=== PATIENT | male | born 1965 | race Caucasian/White ===

== ENCOUNTER 2020-01-17 11:34 | Outpatient (CLI) | payer BC, SELFPAY ==
--- NOTE | ~2020-01-17 | XR_ITS ---
EXAMINATION: XR shoulder RT min 2V DATE: 01/17/2020 11:57 INDICATION: Bilateral shoulder pain TECHNIQUE: AP internally and externally rotated, AP oblique externally rotated and axillary views of the right shoulder were obtained. COMPARISON: None FINDINGS: Normal alignment. No fracture. Glenohumeral joint is normal. Mild acromioclavicular osteoarthritis. Soft tissues are unremarkable. Visualized portions of the right lung are clear. IMPRESSION: Mild right acromioclavicular osteoarthritis. Reviewed, dictated and finalized at location A.
--- NOTE | ~2020-01-17 | XR_ITS ---
EXAMINATION: XR shoulder LT min 2V DATE: 01/17/2020 11:56 INDICATION: Bilateral shoulder pain TECHNIQUE: AP internally and externally rotated, AP oblique externally rotated and axillary views of the left shoulder were obtained. COMPARISON: 03/28/2012 FINDINGS: Normal alignment. No fracture. Glenohumeral joint is normal. Mild acromioclavicular osteoarthritis. T here is new thickening of the acromion consistent with interval acromioplasty. New small lucent lesio n with thin sclerotic margins along the greater tuberosity which could be related to either chronic r otator cuff disease or potentially anchor sites for prior rotator cuff repair. Visual is portions of the left lung are clear. IMPRESSION: 1. Mild acromioclavicular osteoarthritis. No acute osseous abnormality. 2. Postoperative change of interval acromioplasty and possible rotator cuff repair. Reviewed, dictated and finalized at location A. IMPRESSION: 1. Mild acromioclavicular osteoarthritis. No acute osseous abnormality. 2. Postoperative change of interval acromioplasty and possible rotator cuff rep air.
== END 2020-01-17 11:35 | disposition home or self-care (01) ==
LOC: ANHIMG 11:40
PROVIDERS: PCP Family Medicine; Visit Provider Nurse Practitioner Family
DX: M25.512 Pain in left shoulder (principal); M25.511 Pain in right shoulder; M19.012 Primary osteoarthritis, left shoulder; M19.011 Primary osteoarthritis, right shoulder; Z98.890 Other specified postprocedural states
CPT/HCPCS: 73030

== ENCOUNTER 2020-07-09 15:46 | Outpatient (CLI) | payer BC, SELFPAY ==
--- NOTE | ~2020-07-09 | MR_ITS ---
EXAMINATION: MR brain/brain stem wo con DATE: 07/09/2020 16:52 INDICATION: Dizziness and giddiness. TECHNIQUE: Magnetic resonance imaging (MRI) of the brain and brainstem was performed without intraven ous contrast. Sequences included sagittal and axial T1-weighted FSE, axial diffusion-weighted FS EPI, axial T2*-weighted GRE, axial T2-weighted FLAIR Propeller, and axial T2-weighted Propeller. Apparent diffusion coefficient (ADC) maps were created. COMPARISON: None. FINDINGS: There is no intracranial hemorrhage, acute infarction, or abnormal intracranial mass lesion . The ventricles are normal in size. The paranasal sinuses are clear. The orbits are normal. The mast oid air cells are normal. IMPRESSION: 1. Normal brain. Reviewed, dictated and finalized at location A. EPT ARTIST IMPRESSION: 1. Normal brain.
== END 2020-07-09 15:47 | disposition home or self-care (01) ==
PROVIDERS: PCP Family Medicine; Visit Provider Family Medicine
DX: R42 Dizziness and giddiness (principal)
CPT/HCPCS: 70551

== ENCOUNTER 2020-07-21 09:36 | Outpatient (NON) | payer BC, SELFPAY ==
[2020-07-21 23:47] LABS: SARS-CoV-2 RNA PCR Positive
== END 2020-07-21 09:37 ==
LOC: ANHCOVIDDT 09:39
PROVIDERS: PCP Family Medicine; Visit Provider Family Medicine
DX: U07.1 COVID-19 (principal)
CPT/HCPCS: 87635; C9803; U0003

== ENCOUNTER → 2020-12-06 16:01 | Outpatient (CLI) | payer BC, SELFPAY ==
--- NOTE | ~2020-12-06 | XR_ITS ---
EXAMINATION: XR lumbar spine 6V w bending DATE: 12/06/2020 16:31 INDICATION: Low back pain TECHNIQUE: Anteroposterior, lateral in neutral, flexion and extension, and bilateral oblique views of the lumbar spine, and cone-down lateral view of the lumbosacral junction were obtained. COMPARISON: 07/12/2015 FINDINGS: Bone alignment is normal. No laxity is present with flexion or extension. There is no fract ure. The vertebral body heights are maintained. There is mild loss of intervertebral disc space heigh t at L4-5 and L5-S1. The bowel gas pattern is normal. IMPRESSION: 1. Mild lumbar spondylosis without acute findings or significant interval change. Reviewed, dictated and finalized at location A. IMPRESSION: 1. Mild lumbar spondylosis without acute findings or significant interval chery foster
--- NOTE | ~2020-12-06 | XR_ITS ---
EXAMINATION: XR sacrum coccyx min 2V INDICATION: Low back pain TECHNIQUE: Three views of the sacrum and coccyx are obtained. COMPARISON: 04/11/2018, 06/10/2011 FINDINGS: There is chronic posterior subluxation of the distal coccyx which is stable since the 2017 comparison but worst since the 2010 comparison. No acute fracture is identified. The soft tissues are unremarkable. IMPRESSION: 1. 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 Reviewed, dictated and finalized at location A.
== END ==
PROVIDERS: PCP Family Medicine; Visit Provider Family Medicine
DX: M43.5X8 Other recurrent vertebral dislocation, sacral and sacrococcygeal region (principal); M47.817 Spondylosis without myelopathy or radiculopathy, lumbosacral region
CPT/HCPCS: 72114; 72220

== ENCOUNTER 2021-01-23 09:01 | Outpatient (CLI) | payer BC, SELFPAY ==
--- NOTE | ~2021-01-23 | MR_ITS ---
EXAMINATION: MR lumbar spine wo con DATE: 01/23/2021 09:42 INDICATION: Low back pain. TECHNIQUE: Magnetic resonance imaging (MRI) of the lumbar spine was performed without intravenous con trast. Sequences included sagittal T2-weighted FSE, sagittal T2-weighted FS FSE, sagittal T1-weighted FSE, and axial T2-weighted FSE. COMPARISON: Lumbar spine radiographs 12/06/2020 FINDINGS: There is 3 degrees levocurvature of lumbar spine. Vertebral body heights are normal. There is mildly decreased disc height at L4-L5 and L5-S1. The distal spinal cord signal intensity is normal . The conus medullaris is at L1. The following disc levels are specifically discussed: L1-L2: The disc does not extend beyond the endplate margin. There is mild bilateral facet joint osteo arthritis. There is no neural foraminal stenosis. There is no central canal stenosis. L2-L3: The disc does not extend beyond the endplate margin. There is no facet joint osteoarthritis. T here is no neural foraminal stenosis. There is no central canal stenosis. L3-L4: The disc is mildly bulging. There is mild bilateral facet joint osteoarthritis. There is mild bilateral neural foraminal stenosis. There is no central canal stenosis. L4-L5: The disc is bulging and has an annular fissure. There is no facet joint osteoarthritis. There is moderate bilateral neural foraminal stenosis. There is mild central canal stenosis. L5-S1: The disc is bulging and has an annular fissure. There is mild bilateral facet joint osteoarthr itis. There is mild bilateral neural foraminal stenosis. There is mild central canal stenosis. IMPRESSION: 1. Moderate bilateral neural foraminal stenosis at L4-L5. Otherwise mild lumbar spondylosis. Reviewed, dictated and finalized at location B.
== END 2021-01-23 09:02 | disposition home or self-care (01) ==
PROVIDERS: PCP Family Medicine; Visit Provider Nurse Practitioner Family
DX: M47.817 Spondylosis without myelopathy or radiculopathy, lumbosacral region (principal); M48.07 Spinal stenosis, lumbosacral region
CPT/HCPCS: 72148

== ENCOUNTER 2021-02-01 13:25 | Emergency (ER) | payer BC, SELFPAY ==
[2021-02-01 13:33] VITALS: BP 143/91; PULSE 97; RESP 18; TEMP 35.8; O2SAT 97
--- NOTE | 2021-02-01 14:28 | ED.GENADULT ---
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 Patient denies loss of consciousness syncope or anticoagulant use and is otherwise in the room in no distress upon arrival and presents with normal gait patient noted he had had some mild neck pain which has resolved Related Data Home Medications Medication Instructions Recorded Confirmed insulin lispro 200 unit/mL (3 mL) 30 unit SUB-Q QACBREAK 09/01/19 11/23/20 subcutaneous pen Allergies Allergy/AdvReac Type Severity Reaction Status Date / Time No Known Allergies Allergy Unknown Verified 02/01/21 13:36 Review of Systems Review of Systems: All systems reviewed & are unremarkable except as noted in HPI and below PMFSH Past Medical History Medical History Abnormal MRI, lumbar spine BMI 40.0-44.9, adult Diabetes Foot pain, bilateral Obesity Umbilical hernia Vertigo Family History Family History Grandparent Malignant neoplasm of prostate Social History Social History Smoking status: Never smoker Alcohol intake: never Exam Narrative: Exam Narrative: GENERAL: Well-appearing, well-nourished, and in no acute distress. HEAD: Normocephalic, atraumatic. EYES: PERRLA and EOMI. ENT: Nares clear, no rhinorrhea or epistaxis. Mucous membranes moist. NECK: Supple. No adenopathy or masses. CHEST: Clear to auscultation. No respiratory distress. No wheezes rales or rhonchi HEART: Regular rate and rhythm. No murmur heard. Normal peripheral pulses. EXTREMITIES: Normal range of motion. No edema. SKIN: Warm, dry, no rash. NEURO: No focal deficits. Alert and oriented x3. Cranial nerves II through XII grossly intact. Normal speech and gait PSYCH: Normal mood and affect. Course Course Emergency Course: Patient in the room in no distress aware of case findings treatment plan and diagnosis agreeing to follow-up as instructed with primary care felt appropriate for outpatient reevaluation symptoms consistent with concussion patient is otherwise in no distress felt appropriate for outpatient reevaluation will be discharged home provided with reasons to return Vital Signs Vital signs: Vital Signs Temperature 96.4 F L 02/01/21 13:33 Pulse Rate 97 02/01/21 13:33 Respiratory Rate 18 02/01/21 13:33 Blood Pressure 143/91 H 02/01/21 13:33 Pulse Oximetry 97 02/01/21 13:33 Temperature 96.4 F L 02/01/21 13:33 Pulse Rate 97 02/01/21 13:33 Respiratory Rate 18 02/01/21 13:33 Blood Pressure 143/91 H 02/01/21 13:33 Pulse Oximetry 97 02/01/21 13:33 Medical Decision Making MDM Narrative Medical decision making narrative: Patient symptoms are most consistent with concussion no other concerning findings or complaints at this time he feels comfortable to follow-up on an outpatient basis Vital Signs Vital Signs: Vital Signs Temperature 96.4 F L 02/01/21 13:33 Pulse Rate 97 02/01/21 13:33 Respiratory Rate 18 02/01/21 13:33 Blood Pressure 143/91 H 02/01/21 13:33 Pulse Oximetry 97 02/01/21 13:33 Temperature 96.4 F L 02/01/21 13:33 Pulse Rate 97 02/01/21 13:33 Respiratory Rate 18 02/01/21 13:33 Blood Pressure 143/91 H 02/01/21 13:33 Pulse Oximetry 97 02/01/21 13:33 Discharge Plan Discharge Clinic
[2021-02-01 14:35] VITALS: BP 138/72; PULSE 70; RESP 18; O2SAT 99
== END 2021-02-01 14:37 | disposition home or self-care (01) ==
PROVIDERS: Emergency Provider Family Medicine; PCP Family Medicine
DX: S09.90XA Unspecified injury of head, initial encounter (principal); W21.03XA Struck by baseball, initial encounter; E11.9 Type 2 diabetes mellitus without complications; Z79.4 Long term (current) use of insulin
CPT/HCPCS: 99282

== ENCOUNTER → 2021-09-22 10:41 | Outpatient (CLI) | payer BC, SELFPAY ==
[2021-09-22 21:12] LABS: SARS-CoV-2 RNA PCR Positive
== END ==
PROVIDERS: PCP Family Medicine; Visit Provider Nurse Practitioner Family
DX: U07.1 COVID-19 (principal)
CPT/HCPCS: C9803; U0003; U0005

== ENCOUNTER 2022-06-02 12:38 | Outpatient (CLI) | payer BC, SELFPAY ==
--- NOTE | 2022-06-02 12:55 | ECG_ITS ---
Measurements Intervals [place] Rate: 87 P: 62 WI: 149 QRS: 29 QRSD: 85 T: 15 QT: 328 QTc: 395 Interpretive Statements SINUS RHYTHM BASELINE WANDER- I, II NORMAL ECG NO PREVIOUS ECG AVAILABLE FOR COMPARISON Electronically Signed On 06-02-2022 13:34:47 CDT by Zack Mishra D.O.
== END 2022-06-02 12:39 | disposition home or self-care (01) ==
LOC: ANHCARD 12:41
PROVIDERS: PCP Family Medicine; Visit Provider Family Medicine
DX: R60.0 Localized edema (principal); R00.0 Tachycardia, unspecified
CPT/HCPCS: 93005

== ENCOUNTER 2022-06-19 09:40 | Outpatient (CLI) | payer BC, SELFPAY ==
--- NOTE | 2022-06-19 10:16 | EST_ITS ---
Patient Info Name: Modesto Zheng Age: 57 years : 1965 Gender: Male Ht: 70 in Wt: 290 lbs BSA: 2.61 m2 HR: 85 bpm BP: 135 / 74 mmHg Heart Rhythm: Sinus Rhythm Exam Date: 06/19/2022 10:53 AM Exam Location: [facility] Stress Patient Status: Outpatient Admit Date: 06/19/2022 Staff Ordering Physician: Sarath Edgar MD Attending Provider: Sarath Edgar MD Exercise Technologist: Torrie Crowley CT Exercise Physician: Zack Mishra DO Exam Type: CA stress test treadmill Study Info Indications R00.0 - Tachycardia, unspecified R60.0 - Localized edema A treadmill exercise stress test was performed. Summary 1. 1. Negative Bryan exercise stress test for ischemic ST changes by ECG criteria. 2. 2. Reduced functional capacity, achieving 8 METs of workload. 3. 3. Hypertensive response to exercise. 4. 4. Appropriate HR response to exercise. 5. 5. Appropriate HR recovery at 1 minute post exercise. 6. 6. No imaging with stress testing. 7. 7. Patient informed of the above results. Protocol: Bryan Rest HR: 85 bpm Peak HR: 153 bpm Rest Sys BP: 135 mmHg Peak Sys BP: 220 mmHg Max Pred HR: 165 bpm % Max Pred HR: 93 % Target HR: 140 bpm Max RPP: 33,660 bpm*mmHg BP Response: Patient exhibited a hypertensive response with stress Termination Reason: Reached target heart rate or workload Cardiac Symptoms: Shortness of breath Total Time: 7 min : 0 sec Rest [place] BP: 74 mmHg Peak [place] BP: 66 mmHg Total METS: 8.3 Resting ECG Sinus rhythm. Stress ECG No ST changes. Arrhythmias None. Report Signatures
== END 2022-06-19 09:41 | disposition home or self-care (01) ==
LOC: ANHCARD 09:43
PROVIDERS: PCP Family Medicine; Visit Provider Family Medicine
DX: R60.0 Localized edema (principal); R00.0 Tachycardia, unspecified
CPT/HCPCS: 93017

== ENCOUNTER 2022-07-06 10:53 | Outpatient (CLI) | payer BC, SELFPAY ==
--- NOTE | ~2022-07-06 | CT_ITS ---
EXAMINATION: CTA chest PE protocol DATE: 07/06/2022 11:30 INDICATION: Shortness of breath, chest tightness, lower extremity edema TECHNIQUE: Computed tomography angiography (CTA) of the chest was performed with 100 mL Omnipaque-350 intravenous contrast timed to evaluate the pulmonary arteries. Coronal maximum intensity projection 3D-reconstructions were created by the technologist. Automated exposure control and iterative reconst ruction technique were employed. Exam dose: 1011.39 mGy-cm total exam DLP. COMPARISON: 05/23/2018 two-view chest 04/11/2018 CT chest abdomen pelvis FINDINGS: There is diagnostic contrast enhancement of the pulmonary arteries and no evidence of pulmo nary embolism. No thoracic aortic aneurysm or dissection. There is coronary artery calcification. Heart size is borderline. No pericardial or pleural effusion. No hilar or mediastinal mass lesion or lymphadenopathy. Patchy groundglass density of the lungs is is likely due to atelectasis or small airways disease. No pulmonary consolidation or mass lesion is evident. Included skeletal structures are unremarkable. Normal morphology of the adrenal glands. IMPRESSION: No evidence of pulmonary embolism Reviewed, dictated and finalized at Location A. Reviewed, dictated and finalized at location A.
[2022-07-06 11:25] LABS: Estimated Glomerular Filt Rate > 60
== END 2022-07-06 10:54 | disposition home or self-care (01) ==
PROVIDERS: PCP Family Medicine; Visit Provider Family Medicine
DX: R06.00 Dyspnea, unspecified (principal); M79.89 Other specified soft tissue disorders
CPT/HCPCS: 71275; Q9967

== ENCOUNTER 2024-10-16 16:59 | Emergency (ER) | payer BC, SELFPAY ==
--- NOTE | ~2024-10-16 | CT_ITS ---
EXAMINATION: CTA chest DATE: 10/16/2024 19:00 REGULATORY LAW SPECIALIST INDICATION: Upper back pain and chest pain with elevated blood pressure TECHNIQUE: Computed tomographic angiography (CTA) of the chest was performed with 100 mL Omnipaque-35 0 intravenous contrast. The dose-length product was 1124.37 mGy-cm. Maximum intensity projection 3D-r econstructions of the aorta and other arteries were constructed by the technologist on a separate wor kstation. COMPARISON: 07/06/2022 FINDINGS/OBSERVATIONS: PULMONARY ARTERIES: No filling defect is identified within the main or proximal pulmonary artery. The main pulmonary artery is not enlarged. THORACIC AORTA: No aneurysmal dilatation or dissection is present. The great vessels are intact LUNGS: The lungs are clear. MEDIASTINUM: No morphologically suspicious or pathologically enlarged lymph nodes are identified with in the mediastinum or bilateral axilla. BONES OF THE CHEST: No acute fracture. No significant degenerative disease. No lytic or blastic lesions. HEART: The heart is of normal size, without pericardial effusion. IMPRESSION: No pulmonary embolus. No thoracic aortic dissection. The lungs are clear. Reviewed, dictated and finalized at location A. LATORY LAW SPECIALIST
[2024-10-16 17:01] VITALS: BP 170/87; PULSE 97; RESP 16; TEMP 36.3; O2SAT 98
--- NOTE | 2024-10-16 17:01 | ECG_ITS ---
Test Date: 2024-10-16 17:04:29 Measurements Intervals [place] Rate: 98 P: 57 OR: 141 QRS: 29 QRSD: 88 T: 42 QT: 335 QTc: 428 Interpretive Statements SINUS RHYTHM CONSIDER RIGHT VENTRICULAR CONDUCTION DELAY LOW QRS VOLTAGE IN PRECORDIAL LEADS BORDERLINE ECG No previous ECG available for comparison Electronically Signed On 10-16-2024 19:04:05 SURVEY ANALYST by Zack Mishra D.O.
--- OUTSIDE RECORDS SUMMARY | 2024-10-16 17:02 | XMS_ITS | Encounter Summary ---
Author Organization [facility] Address [address] [place] [address] Care Team Providers Care Tip Mender Name Role Phone Sarath Edgar MD Primary Care Provider [phone] Jorge Olivia DO Unavailable Luana Mendez MD Unavailable [phone] Eun Duarte MD Unavailable [phone] Randa Davis DPSlime Unavailable [phone] Encounter Details Date Type Department Care Team (Late st Contact Info) Description 03/17/2012 [facility] Outpatient Visit EXTERNAL NON-[facility] [place] Lu[place] Mendez [place] [id number] [place] [address] [address] [place] [address] Social History Tobacco Use Types Packs/Day Years Used Date Smoking Tobacco: Never Assessed Sex and Gender Information Value Date Recorded Sex Assigned at Male 12/05/2020 2:14 PM CDT Gender Identity Male 12/05/2020 2:14 PM CDT Sexual Orientation Straight 12/05/2020 2: 14 PM CDT documented as of this encounter Plan of Treatment Upcoming Encounters Date Type Department Care Team (Late st Contact Info) Description 12/15/2024 3:00 PM CDT Office Visit [facility] Medical [facility] - Endocrinology [id number] [place] [address], [address] [place] [phone] Lu[place] Mendez [place] [id number] [place] [address] [address] [place] [address] 03/16/2025 3:00 PM CDT Office Visit [facility] - Endocrinology [address] [facility], [address] [place] [address] [place] [address] [facility] [address] [place] [address] documented as of this encounter Visit Diagnoses Not on filedocumented in this encounter Care Teams Tip Mender Relationship Specialty Start Date End Date Sarath Edgar MD [address] [place] [address] PCP - General 03/18/12 Jorge Olivia DO [address] [place] [address] Orthopedic Surgery 12/03/12 06/20/16 [place] [address] [facility] [address] [place] [address] Endocrinology 04/05/15 [place] [address] [facility] [address] [place] [phone] Ophthalmology 06/21/16 Randa Davis DPM [address] [facility] [address] SOLIS [address] [place] [address] Podiatry 06/21/16 documented as of this encounter
--- OUTSIDE RECORDS SUMMARY | 2024-10-16 17:02 | XMS_ITS | Encounter Summary ---
Author Organization [facility] Address [address] [facility] [place] [address] Care Team Providers Care Clinical Psychology Teacher Name Role Phone Sarath Edgar MD Primary Care Provider [phone] Jorge Olivia DO Unavailable [phone] Luana Mendez MD Unavailable [phone] Eun Duarte MD Unavailable [phone] Randa Davis DPSlime Unavailable [phone] Encounter Details Date Type Department Care Team (Late st Contact Info) Description 07/22/2013 [facility] Outpatient Visit [facility] - Endocrinology [address] [address] [place] [address] [address] Social History Tobacco Use Types Packs/Day Years Used Date Smoking Tobacco: Former Cigarettes Q uit: 02/24/2012 Alcohol Use Standard Drinks/Week Comments No 0 (1 standard drink = 0.6 oz pur e alcohol) Sex and Gender Information Value Date Recorded Sex Assigned at Male 12/05/2020 2:14 PM CDT Gender Identity Male 12/05/2020 2:14 PM CDT Sexual Orientation Straight 12/05/2020 2: 14 PM CDT documented as of this encounter Plan of Treatment Upcoming Encounters Date Type Department Care Team (Late st Contact Info) Description 12/15/2024 3:00 PM CDT Office Visit [facility] - Endocrinology [address] [place] [phone] Luana Mendez MD [address] [place] [address] 03/16/2025 3:00 PM CDT Office Visit [facility] - Endocrinology [address] [place] [phone] Luana Mendez MD [address] [place] [address] documented as of this encounter Visit Diagnoses Not on filedocumented in this encounter Care Teams Clinical Psychology Teacher Relationship Specialty Start Date End Date Sarath Edgar MD [address] [place] [address] PCP - General 03/18/12 Jorge Olivia DO [address] [place] [address] Orthopedic Surgery 12/03/12 06/20/16 Luana Mendez [place] [id number] [place] [address] Endocrinology 04/05/15 [place] [address] [facility] [address] [place] [phone] Ophthalmology 06/21/16 Randa Davis DPM [id number] [place] [address] DR SOLIS [address] [place] [address] Podiatry 06/21/16 documented as of this encounter
--- OUTSIDE RECORDS SUMMARY | 2024-10-16 17:02 | XMS_ITS | Encounter Summary ---
Author Organization [facility] Address [address] [facility] [place] [address] Care Team Providers Care Airplane Electrical Repairer Name Role Phone Sarath Edgar MD Primary Care Provider [phone] Jorge Olivia DO Unavailable [phone] Luana Mendez MD Unavailable [phone] Eun Duarte MD Unavailable [phone] Randa Davis DPSlime Unavailable [phone] Encounter Details Date Type Department Care Team (Late st Contact Info) Description 07/18/2013 [facility] Outpatient Visit [facility] - Endocrinology [address] [address] [place] [address] [address] Social History Tobacco Use Types [...] Description 12/15/2024 3:00 PM CDT Office Visit [facility] - Endocrinology [address] [place] [phone] Luana Mendez MD [address] [place] [address] 03/16/2025 3:00 PM CDT Office Visit [facility] - Endocrinology [address] [place] [phone] Luana Mendez MD [address] [place] [address] documented as of this encounter Visit Diagnoses Not on filedocumented in this encounter Care Teams Airplane Electrical Repairer Relationship Specialty Start Date End Date Sarath Edgar MD [address] [place] [address] PCP - General 03/18/12 Jorge Olivia DO [address] [place] [address] Orthopedic Surgery 12/03/12 06/20/16 Luana Mendez MD [id number] [place] [address] Endocrinology 04/05/15 [place] [address] [facility] [address] [place] [phone] Ophthalmology 06/21/16 Randa Davis DPM [id number] [place] [address] DR SOLIS [address] [place] [address] Podiatry 06/21/16 documented as of this encounter
--- OUTSIDE RECORDS SUMMARY | 2024-10-16 17:02 | XMS_ITS | Continuity of Care Document ---
Author Name [facility] Organization [facility] Care Team Providers Care Ambulance Officer Name Role Phone [facility] Unavailable Unavailable Social History Combined list of available smoking, tobacco, and other social history from Department of Defense and Veterans Affairs facilities. Social History Type Response Date Comment Sourc e This section is an empty social history section. [facility]
--- OUTSIDE RECORDS SUMMARY | 2024-10-16 17:02 | XMS_ITS | Clinical Summary ---
Author Organization [facility] Address [address] [place] [address] Care Team Providers Care Zinc Plating Machine Operator Name Role Phone Sarath Edgar MD Primary Care Provider [phone] Luana Mendez MD Unavailable [phone] Eun Duarte MD Unavailable [phone] Randa Davis DPM Unavailable [phone] Source Comments [facility],non-owned Affiliates and Associated Physician Practices is amultiple site organization consisting of ambulatory clinics and hospital sitesin [place], [place], [place] and [place]. This disclosure is being madepursuant to the Care Everywhere program and may not contain all information available regarding this patient. Last updated 18.[facility] Allergies Active Allergy Reactions Criticality Noted Date Comments Atorvastatin Myalgias 10/06/2019 Banana Itching 06/16/2014 Mouth tingling Rosuvastatin Myalgias 12/08/2020 Losartan Dizziness 08/13/2023 Lethargic, decrease BP Medications * Be aware that medications may not be up to date on this document. Alwaysverify current medications with the patient. Medication Sig Dispensed Refills Start Date End Date Status insulin syringe-needle (BD INSULIN SYRINGE ULTRAFINE) 31G X 5/16 0.5 ML syringe 1 Each by Injection route 3 times daily before meals 300 Each 0 08/11/2015 Active insulin syringe-needle (B-D INS SYR HALF-UNIT .3CC/31G) 31G X 5/16 0.3 ML syringe Use as directed to inject 3 times daily 300 Each 3 11/10/2015 Active aspirin (ASPIRIN) 81 MG tablet Take 1 Tab by mouth once daily 09/21/2016 Active fluticasone propionate (FLONASE) 50 MCG/ACT nasal spray [place] 2 Sprays into each nostril once daily 1 Bottle 3 05/09/2017 Active Additional Information Patient taking differently:2 spray Each NostrilPRN, Reported on 07/17/2022 B Complex-Folic Acid (SUPER B COMPLEX MAXI) TABS Take 1 tablet by mouth once daily 12/16/2018 Active ZYRTEC-D ALLERGY & CONGESTION 5-120 MG tablet as needed 02/25/2019 Active Cholecalciferol (VITAMIN D) 50 MCG (1999 [place]) capsule Take 1 capsule by mouth once daily 10/07/2019 Active Blood Pressure Monitoring (B-D ASSURE BPM/AUTO ARM CUFF) MISCIndications:Pu re hypercholesterolem ia,Uncontrolled type 1 diabetes mellitus with hypoglycemia and coma (HCC),Primary hypertension Use 1 Each once daily Digital Large adult cuff for home use 1 Each 10/10/2022 Active blood glucose (Accu-Chek Guide) test stripIndications:U ncontrolled type 1 diabetes mellitus with hypoglycemia and coma (HCC) Use 1 (one) strip 8 times daily while awake While on insulin pump: with hypoglycemia 800 strip 3 11/02/2022 Active Accu-Chek Multiclix Lancets MISCIndications:Un controlled type 1 diabetes mellitus with hypoglycemia and coma (HCC) Use 1 Each 8 times daily while awake 800 Each 3 11/02/2022 Active Insulin Lispro-aabc (Lyumjev) 100 UNIT/ML SOLN 120 Units by Injection route once daily as needed Replacing Humalog: [id number] unit delivered via insulin pump 120 mL 3 11/03/2022 Active Accu-Chek Multiclix Lancets MISCIndications:Un controlled type 1 diabetes mellitus with hypoglycemia and coma (HCC) Use 1 Each 8 times daily while awake 816 Each 3 11/03/2022 Active Accu-Chek Guide test stripIndications:U ncontrolled type 1 diabetes mellitus with hypoglycemia and coma (HCC) USE 1 (ONE) STRIP 8 TIMES DAILY WHILE AWAKE WHILE ON INSULIN PUMP: WITH HYPOGLYCEMIA 800 strip 3 11/03/2022 Active blood glucose (Accu-Chek Guide) test stripIndications:U ncontrolled type 1 diabetes mellitus with hypoglycemia and coma (HCC) Use 1 (one) strip 8 times daily while awake While on insulin pump: with hypoglycemia 800 strip 1 09/29/2024 Active Insulin Lispro-aabc (Lyumjev) 100 UNIT/ML SOLN 120 Units by Injection route once daily as needed Replacing Humalog: [id number] unit delivered via insulin pump 240 mL 1 09/29/2024 Active blood glucose (Accu-Chek Guide) test stripIndications:U ncontrolled type 1 diabetes mellitus with hypoglycemia and coma (HCC) Use 1 (one) strip 8 times daily while awake While on insulin pump: with hypoglycemia 800 strip 3 11/03/2022 5 Discontinue d(Reorder) Insulin Lispro-aabc (Lyumjev) 100 UNIT/ML SOLN 120 UNITS BY INJECTION ROUTE ONCE DAILY NEEDED REPLACING HUMALOG: [id number] UNIT DELIVERED VIA INSULIN PUMP 120 mL 1 04/02/2024 5 Discontinue d(Reorder) Active Problems Problem Noted Date Diagnosed Date Elevated LFTs 07/26/2022 Dyslipidemia 12/16/2018 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 07/31/2016 Diabetic hypoglycemia 12/03/2012 Status post insertion of insulin pump 04/11/2012 Uncontrolled type 1 diabetes mellitus 03/18/2012 Overview (06/03/2015): Resolved Problems Problem Noted Date Diagnosed Date Resolved Date Hyperlipidemia 09/23/2012 12/16/2018 Encounters Date Type Department Care Team Description 09/28/2024 Refill [facility] - Endocrinology [address] [place] [address], [address] [phone] Luana Mendez MD MEDICATION REFILL 08/12/2024 2:40 PM SHIP WASHER Office Visit [facility] - Endocrinology [address] [place] [address], [address] [phone] Luana Mendez MD Diabetic polyneuropathy associated with type 1 diabetes mellitus (HCC) (Primary Dx); Status post insertion of insulin pump; Diabetic hypoglycemia (HCC); Dyslipidemia; Elevated LFTs; Primary hypertension from Last 3 Months Family History Medical History Relation Name Comments Thyroid Disease Brother Diabetes Father borderline CAD (Coronary Artery Disease) Neg Hx CVA Neg Hx Relation Name Status Comments Brother Father Social History Tobacco Use Types Packs/Day Years Used Date Smoking Tobacco: Former Cigarettes 0 02/23/1987 - 02/24/2012 Smokeless Tobacco: Never Alcohol Use Standard Drinks/Week Comments No 0 (1 standard drink = 0.6 oz pur e alcohol) Sex and Gender Information Value Date Recorded Sex Assigned at Male 12/05/2020 2:14 PM CDT Gender Identity Male 12/05/2020 2:14 PM CDT Sexual Orientation Straight 12/05/2020 2: 14 PM CDT Last Filed Vital Signs Vital Sign Reading Time Taken Comments Blood Pressure 132/68 08/12/2024 2:46 PM SHIP WASHER Pulse 93 08/12/2024 2:46 PM SHIP WASHER Temperature 36.7 C (98 F) 04/04/2022 9:07 AM CDT Respiratory Rate 20 07/05/2021 8:07 AM CDT Oxygen Saturation 96% 08/12/2024 2:46 PM SHIP WASHER Inhaled Oxygen Concentration - - Weight 134.7 kg (297 lb) 08/12/2024 2:46 PM SHIP WASHER Height 177.8 cm (5' 10 ) 08/12/2024 2:46 PM SHIP WASHER Body Mass Index 42.62 08/12/2024 2:46 PM SHIP WASHER Plan of Treatment Upcoming Encounters Date Type Department Care Team (Late st Contact Info) Description 12/15/2024 3:00 PM CDT Office Visit [facility] - Endocrinology [address] [place] [address], [address] [phone] Luana Mendez MD [address] [place] [phone] 03/16/2025 3:00 PM CDT Office Visit [facility] - Endocrinology [address] [place] [address], [address] [phone] Luana Mendez MD [address] [place] [address] [id number] Health Maintenance Due Date Last Done Comments OGVIJAYA (AGES 45-75) - COLON CA SCREENING 1967 COLON MONITORING 1967 COLONOSCOPY - COLON CA SCREENING 1967 CT COLONOGRAPHY - COLON CA SCREENING 1967 Colorectal Cancer Screening 1967 FIT - COLON CA SCREENING 1967 FLEX SIG - COLON CA SCREENING 1967 HIV SCREENING 1982 HEPATITIS C SCREENING 02/08/1985 DTAP/TDAP/TD VACCINES (1 - Tdap) 1986 HEPATITIS B VACCINE (1 of 3 - 19+ 3-dose series) 1986 PNEUMOCOCCAL VACCINE 50+ (1 of 2 - PCV) 1986 DIABETES-STATIN 2007 ZOSTER VACCINE (1 of 2) 2017 DIABETES RETINOPATHY SCREENING 09/13/2020 09/13/2018, 12/05/2016, 11/29/2016, Additional history exists DIABETES-FOOT EXAM WITH MONOFILAMENT 01/18/2021 01/19/2020 COVID-19 VACCINE ( season) 2024 INFLUENZA VACCINE (#1) 2024 DEPRESSION SCREENING 09/03/2024 DIABETES - URINE PROTEIN SCREENING 09/03/2024 08/16/2024, 08/18/2023, 07/17/2022, Additional history exists DIABETES-HGB A1C 02/10/2025 08/12/2024, 07/2024, 08/13/2023, Additional history exists DIABETES-SERUM CREATININE 08/16/20252023, 11/03/2023, 08/18/2023, Additional history exists HIB VACCINE Aged Out No longer eligi ble based on patient's age to complete this topic HPV VACCINE Aged Out No longer eligi ble based on patient's age to complete this topic MENINGOCOCCAL (Group B) VACCINE Aged Out No longer eligible based on patient's age to complete this topic MENINGOCOCCAL VACCINE Aged Out No kvng jean marie eligible based on patient's age to complete this topic Procedures Procedure Name Priority Date/Time Associated Diagnosis Comments MICROALB/CREAT RATIO URINE RANDOM PANEL Routine 08/16/2024 11:56 AM SHIP WASHER Uncontrolled type 1 diabetes mellitus with hypoglycemia and coma (HCC) CBC W AUTO DIFFERENTIAL Routine 08/16/2024 11:56 AM SHIP WASHER Uncontrolled type 1 diabetes mellitus with hypoglycemia and coma (HCC) FRUCTOSAMINE Routine 08/16/2024 11:56 AM SHIP WASHER Uncontrolled type 1 diabetes mellitus with hypoglycemia and coma (HCC) COMPREHENSIVE METABOLIC PANEL Routine 08/16/2024 11:56 AM SHIP WASHER Uncontrolled type 1 diabetes mellitus with hypoglycemia and coma (HCC) Diabetic hypoglycemia (HCC) Hypoglycemia unawareness associated with type 1 diabetes mellitus (HCC) Primary hypertension Pure hypercholesterolemia LIPID PROFILE Routine 08/16/2024 11:56 AM SHIP WASHER Uncontrolled type 1 diabetes mellitus with hypoglycemia and coma (HCC) Primary hypertension Pure hypercholesterolemia GLUCOSE TESTING AT HOME Routine 08/12/2024 10:37 AM SHIP WASHER HEMOGLOBIN A1C - POINT OF CARE (AMB) Routine 08/12/2024 Diabetic polyneuropathy associated with type 1 diabetes mellitus (HCC) Status post insertion of insulin pump Diabetic hypoglycemia (HCC) GLUCOSE - POINT OF CARE (AMB) STL Routine 08/12/2024 Diabetic polyneuropathy associated with type 1 diabetes mellitus (HCC) Status post insertion of insulin pump Diabetic hypoglycemia (HCC) DIABETES EYE EXAM Routine 09/13/2018 from Last 3 Months or Most Recently Relevant to Health Maintenance Results * MICROALB/CREAT RATIO URINE RANDOM PANEL (08/16/2024 11:56 AM SHIP WASHER) Creatinine Urine 181.3 Not Estab. mg/dL [facility] ACCOUNT BILL Microalbumin Urine 9.8 Not Estab. ug/mL [facility] ACCOUNT BILL Microalbumin/Crea tinine Ratio 5 0 - 29 mg/g creat [facility] ACCOUNT BILL Comment: Normal: 0 - 29 Moderately increased: 30 - 300 Severely increased: >300 Urine URINE SPECIMEN OBTAINED BY CLEAN CATCH PROCEDURE / Unknown 08/16/2024 11:56 AM SHIP WASHER 08/16/2024 Narrative [facility] ACCOUNT BILL - 08/17/2024 7:05 AM SHIP WASHER Performed at: [facility] [id number] Tobacco Grower: Jae Mckeon PhD, Phone: [phone] Luana Mendez MD LAB - URINE CHEM ISTRY ORDERABLES Performing Organization Address [facility] Co de Phone Number [facility] ACCOUNT BILL [address] [place] [address] * (ABNORMAL) FRUCTOSAMINE (08/16/2024 11:56 AM SHIP WASHER) Fructosamine 291(H) 0 - 285 umol/L [facility] ACCOUNT BILL Comment: Published reference interval for apparently healthy subjects between age 20 and 60 is 205 - 285 umol/L and in a poorly controlled diabetic population is 228 - 563 umol/L with a mean of 396 umol/L. Blood BLOOD SPECIMEN / Unknown 08/16/2024 11:56 AM SHIP WASHER 08/16/2024 Narrative [facility] ACCOUNT BILL - 08/17/2024 8:05 AM SHIP WASHER Performed at: - [address] [id number] Tobacco Grower: Jae Mckeon PhD, Phone: [phone] Luana Mendez MD LAB - CHEMISTRY ORDERABLES Performing Organization Address [facility] Co de Phone Number [facility] ACCOUNT BILL [address] [place] [address] * CBC WITH DIFFERENTIAL (08/16/2024 11:56 AM SHIP WASHER) Pathologist [facility] WBC 5.3 3.4 - 10.8 x10E3/uL [facility] ACCOUNT BILL RBC 5.46 4.14 - 5.80 x10E6/uL [facility] ACCOUNT BILL Hemoglobin 16.3 13.0 - 17.7 g/dL [facility] ACCOUNT BILL Hematocrit 50.0 37.5 - 51.0 % [facility] ACCOUNT BILL MCV 92 79 - 97 fL [facility] ACCOUNT BILL MCH 29.9 26.6 - 33.0 pg [facility] ACCOUNT BILL MCHC 32.6 31.5 - 35.7 g/dL [facility] ACCOUNT BILL RDW 12.8 11.6 - 15.4 % [facility] ACCOUNT BILL Platelet Count 314 150 - 450 x10E3/uL [facility] ACCOUNT BILL Granulocytes % 60 Not Estab. % [facility] ACCOUNT BILL Lymphocytes % 27 Not Estab. % [facility] ACCOUNT BILL Monocytes % 8 Not Estab. % [facility] ACCOUNT BILL Eosinophils % 4 Not Estab. % [facility] ACCOUNT BILL Basophils % 1 Not Estab. % [facility] ACCOUNT BILL Granulocytes Absolute 3.2 1.4 - 7.0 x10E3/uL [facility] ACCOUNT BILL Lymphocytes Absolute 1.4 0.7 - 3.1 x10E3/uL [facility] ACCOUNT BILL Monocytes Absolute 0.4 0.1 - 0.9 x10E3/uL [facility] ACCOUNT BILL Eosinophils Absolute 0.2 0.0 - 0.4 x10E3/uL [facility] ACCOUNT BILL Basophils Absolute 0.1 0.0 - 0.2 x10E3/uL [facility] ACCOUNT BILL Immature Granulocytes 0 Not Estab. % [facility] ACCOUNT BILL Immature Granulocytes Absolute 0.0 0.0 - 0.1 x10E3/uL [facility] ACCOUNT BILL Blood BLOOD SPECIMEN / Unknown 08/16/2024 11:56 AM SHIP WASHER 08/16/2024 Narrative [facility] ACCOUNT BILL - 08/17/2024 7:05 AM SHIP WASHER Performed at: 01 - [address] [id number] Tobacco Grower: Jae Mckeon PhD, Phone: [phone] Luana Mendez MD LAB - HEMATOLOGY ORDERABLES [facility] ACCOUNT BILL [address] [place] [address] * COMPREHENSIVE METABOLIC PANEL (08/16/2024 11:56 AM SHIP WASHER) Glucose 94 70 - 99 mg/dL [facility] ACCOUNT BILL BUN 18 6 - 24 mg/dL [facility] ACCOUNT BILL Creatinine 1.12 0.76 - 1.27 mg/dL [facility] ACCOUNT BILL eGFR by CKD-EPI 77 >59 mL/min/1.7 3 [facility] ACCOUNT BILL BUN/Creatinine Ratio 16 9 - 20 [facility] ACCOUNT BILL Sodium 140 134 - 144 mmol/L [facility] ACCOUNT BILL Potassium 4.6 3.5 - 5.2 mmol/L [facility] ACCOUNT BILL Chloride 101 96 - 106 mmol/L [facility] ACCOUNT BILL CO2 26 20 - 29 mmol/L [facility] ACCOUNT BILL Calcium 9.6 8.7 - 10.2 mg/dL [facility] ACCOUNT BILL Protein Total 7.1 6.0 - 8.5 g/dL [facility] ACCOUNT BILL Albumin 4.4 3.8 - 4.9 g/dL [facility] ACCOUNT BILL Globulin Total 2.7 1.5 - 4.5 g/dL [facility] ACCOUNT BILL Bilirubin Total 0.5 0.0 - 1.2 mg/dL [facility] ACCOUNT BILL Alkaline Phosphatase 107 44 - 121 IU/L [facility] ACCOUNT BILL AST 23 0 - 40 IU/L [facility] ACCOUNT BILL ALT 28 0 - 44 IU/L [facility] ACCOUNT BILL Blood BLOOD SPECIMEN / Unknown 08/16/2024 11:56 AM SHIP WASHER 08/16/2024 Narrative [facility] ACCOUNT BILL - 08/17/2024 7:05 AM SHIP WASHER Performed at: [address] [id number] Tobacco Grower: Jae Mckeon PhD, Phone: [phone] Luana Mendez MD LAB - CHEMISTRY ORDERABLES Performing Organization Address City/State/[facility] Co de Phone Number [facility] ACCOUNT BILL [address] [place] [address] * (ABNORMAL) LIPID PROFILE (08/16/2024 11:56 AM SHIP WASHER) Cholesterol 240(H) 100 - 199 mg/dL [facility] ACCOUNT BILL Triglycerides 217(H) 0 - 149 mg/dL [facility] ACCOUNT BILL HDL Cholesterol 43 >39 mg/dL [facility] ACCOUNT BILL VLDL Calculated 40 5 - 40 mg/dL [facility] ACCOUNT BILL LDL Calculated 157(H) 0 - 99 mg/dL [facility] ACCOUNT BILL Blood BLOOD SPECIMEN / Unknown 08/16/2024 11:56 AM SHIP WASHER 08/16/2024 Narrative [facility] ACCOUNT BILL - 08/17/2024 7:05 AM SHIP WASHER Performed at: - [facility] [id number] Tobacco Grower: Jae Mckeon PhD, Phone: [phone] Luana Mendez MD LAB - CHEMISTRY ORDERABLES [facility] ACCOUNT [place] [address] * GLUCOSE TESTING AT HOME (08/12/2024 10:37 AM SHIP WASHER) Luana Mendez MD NURSING - COMMUN ICATION * (ABNORMAL) GLUCOSE - POINT OF CARE (AMB) STL (08/12/2024) Glucose 120(A) 60 - 100 mg/dL Lot # [id number] Expiration Date 10/24/2025 QC Verified Yes Yes Blood BLOOD SPECIMEN / Unknown 08/12/2024 Luana Mendez MD LAB - POINT OF C ARE ORDERABLES * HEMOGLOBIN A1C - POINT OF CARE (HgbA1C) (08/12/2024) Hemoglobin A1c POCT 7.2 % Expiration Date 01/23/2026 Lot # [id number] QC Verified Yes Yes Blood BLOOD SPECIMEN / Unknown 08/12/2024 Luana Mendez MD LAB - POINT OF C ARE ORDERABLES * DIABETES EYE EXAM (09/13/2018) Historical Provider MD ANTON Manuel from Last 3 Months or Most Recently Relevant to Health Maintenance Care Teams Zinc Plating Machine Operator Relationship Specialty Start Date End Date Sarath Edgar MD [address] [place] [address] PCP - General 03/18/12 [place] [id number] [facility] [address] [place], [place] [id number] Endocrinology 04/05/15 [place] [address] [facility] [address] [place] [address] Ophthalmology 06/21/16 Randa Davis DPM [address] [place] [address] Podiatry 06/21/16
--- OUTSIDE RECORDS SUMMARY | 2024-10-16 17:02 | XMS_ITS | Referral Summary ---
Author Organization [facility] Address [address] [facility] [place] [address] Care Team Providers Care Tar Heat Exchanger Cleaner Name Role Phone Sarath Edgar MD Primary Care Provider [phone] Luana Mendez MD Unavailable [phone] Eun Duarte MD Unavailable [phone] Randa Davis DPM Unavailable [phone] Source Comments [facility],non-owned Affiliates and Associated Physician Practices is amultiple site organization consisting of ambulatory clinics and hospital sitesin [place], [place], [place] and [place]. This disclosure is being madepursuant to the Care Everywhere program and may not contain all information available regarding this patient. Last updated 18.[facility] Encounters Date Type Department Care Team Description 09/28/2024 Refill [facility] - Endocrinology [address] [place] [address], [address] [phone] Luana Mendez MD MEDICATION REFILL 08/12/2024 2:40 PM REFRACTORY TILE HELPER Office Visit [facility] Endocrinology [address] [place] [address], [address] [phone] Luana Mendez MD Diabetic polyneuropathy associated with type 1 diabetes mellitus (HCC) (Primary Dx); Status post insertion of insulin pump; Diabetic hypoglycemia (HCC); Dyslipidemia; Elevated LFTs; Primary hypertension from Last 3 Months Allergies Active Allergy Reactions Criticality Noted Date [...] fluticasone propionate (FLONASE) 50 MCG/ACT nasal spray [place] 2 Sprays into each nostril once daily [...] route once daily as needed Replacing Humalog: [id number] unit delivered via insulin pump 120 mL [...] route once daily as needed Replacing Humalog: GGZ081 unit delivered via insulin pump 240 mL [...] INJECTION ROUTE ONCE DAILY NEEDED REPLACING HUMALOG: [id number] UNIT DELIVERED VIA INSULIN PUMP 120 mL [...] Diagnosed Date Resolved Date Hyperlipidemia 09/23/2012 12/16/2018 Social History Tobacco Use Types Packs/Day Years [...] Comments Blood Pressure 132/68 08/12/2024 2:46 PM REFRACTORY TILE HELPER Pulse 93 08/12/2024 2:46 PM REFRACTORY TILE HELPER Temperature 36.7 C (98 F) 04/04/2022 9:07 AM CDT Respiratory Rate 20 07/05/2021 8:07 AM CDT Oxygen Saturation 96% 08/12/2024 2:46 PM REFRACTORY TILE HELPER Inhaled Oxygen Concentration - - Weight 134.7 kg (297 lb) 08/12/2024 2:46 PM REFRACTORY TILE HELPER Height 177.8 cm (5' 10 ) 08/12/2024 2:46 PM REFRACTORY TILE HELPER Body Mass Index 42.62 08/12/2024 2:46 PM REFRACTORY TILE HELPER Plan of Treatment Upcoming Encounters Date Type Department Care Team (Late st Contact Info) Description 12/15/2024 3:00 PM CDT Office Visit [facility] - Endocrinology [address] [place] [phone] Luana Mendez MD [address] [place] [phone] 03/16/2025 3:00 PM CDT Office Visit [facility] - Endocrinology [address] [place] [phone] Luana Mendez MD [address] [place] [phone] Procedures Procedure Name Priority Date/Time Associated Diagnosis Comments MICROALB/CREAT RATIO URINE RANDOM PANEL Routine 08/16/2024 11:56 AM REFRACTORY TILE HELPER Uncontrolled type 1 diabetes mellitus with hypoglycemia and coma (HCC) CBC W AUTO DIFFERENTIAL Routine 08/16/2024 11:56 AM REFRACTORY TILE HELPER Uncontrolled type 1 diabetes mellitus with hypoglycemia and coma (HCC) FRUCTOSAMINE Routine 08/16/2024 11:56 AM REFRACTORY TILE HELPER Uncontrolled type 1 diabetes mellitus with hypoglycemia and coma (HCC) COMPREHENSIVE METABOLIC PANEL Routine 08/16/2024 11:56 AM REFRACTORY TILE HELPER Uncontrolled type 1 diabetes mellitus with hypoglycemia and coma (HCC) Diabetic hypoglycemia (HCC) Hypoglycemia unawareness associated with type 1 diabetes mellitus (HCC) Primary hypertension Pure hypercholesterolemia LIPID PROFILE Routine 08/16/2024 11:56 AM REFRACTORY TILE HELPER Uncontrolled type 1 diabetes mellitus with hypoglycemia and coma (HCC) Primary hypertension Pure hypercholesterolemia GLUCOSE TESTING AT HOME Routine 08/12/2024 10:37 AM REFRACTORY TILE HELPER HEMOGLOBIN A1C - POINT OF CARE (AMB) [...] RATIO URINE RANDOM PANEL (08/16/2024 11:56 AM REFRACTORY TILE HELPER) Pathologist [facility] Creatinine Urine 181.3 Not Estab. mg/dL [facility] ACCOUNT BILL Microalbumin Urine 9.8 Not Estab. ug/mL [facility] ACCOUNT BILL Microalbumin/Crea tinine Ratio 5 0 - 29 mg/g creat [facility] ACCOUNT BILL Comment: Normal: 0 - 29 Moderately increased: 30 - 300 Severely increased: >300 Urine URINE SPECIMEN OBTAINED BY CLEAN CATCH PROCEDURE / Unknown 08/16/2024 11:56 AM REFRACTORY TILE HELPER 08/16/2024 Narrative [facility] ACCOUNT BILL - 08/17/2024 7:05 AM REFRACTORY TILE HELPER Performed at: 01 - [facility] [address] [id number] Hvac Sales Representative: Jae Mckeon PhD, Phone: [phone] Luana Mendez MD LAB - URINE CHEM ISTRY ORDERABLES Performing Organization Address [facility] de Phone Number [facility] ACCOUNT BILL [address] [place] [address] * (ABNORMAL) FRUCTOSAMINE (08/16/2024 11:56 AM REFRACTORY TILE HELPER) Pathologist [facility] Fructosamine 291(H) 0 - 285 umol/L [facility] ACCOUNT BILL Comment: Published reference interval for apparently healthy subjects between age 20 and 60 is 205 - 285 umol/L and in a poorly controlled diabetic population is 228 - 563 umol/L with a mean of 396 umol/L. Blood BLOOD SPECIMEN / Unknown 08/16/2024 11:56 AM REFRACTORY TILE HELPER 08/16/2024 Narrative [facility] ACCOUNT BILL - 08/17/2024 8:05 AM REFRACTORY TILE HELPER Performed at: - [facility] [address] [id number] Hvac Sales Representative: Jae Mckeon PhD, Phone: [phone] Luana Mendez MD LAB - CHEMISTRY ORDERABLES Performing Organization Address [facility] de Phone Number [facility] ACCOUNT BILL [address] [place] [address] * CBC WITH DIFFERENTIAL (08/16/2024 11:56 AM REFRACTORY TILE HELPER) Pathologist [facility] WBC 5.3 3.4 - 10.8 x10E3/uL [facility] [...] BLOOD SPECIMEN / Unknown 08/16/2024 11:56 AM REFRACTORY TILE HELPER 08/16/2024 Narrative [facility] ACCOUNT BILL - 08/17/2024 7:05 AM REFRACTORY TILE HELPER Performed at: 01 - [address] [id number] Hvac Sales Representative: Jae Mckeon PhD, Phone: [phone] Luana Mendez MD LAB - HEMATOLOGY ORDERABLES [facility] ACCOUNT BILL [address] [place] [address] * COMPREHENSIVE METABOLIC PANEL (08/16/2024 11:56 AM REFRACTORY TILE HELPER) Glucose 94 70 - 99 mg/dL [facility] [...] BLOOD SPECIMEN / Unknown 08/16/2024 11:56 AM REFRACTORY TILE HELPER 08/16/2024 Narrative [facility] ACCOUNT BILL - 08/17/2024 7:05 AM REFRACTORY TILE HELPER Performed at: [facility] [id number] Hvac Sales Representative: Jae Mckeon PhD, Phone: [phone] Luana Mendez MD LAB - CHEMISTRY ORDERABLES [facility] ACCOUNT BILL [address] [place] [address] * (ABNORMAL) LIPID PROFILE (08/16/2024 11:56 AM REFRACTORY TILE HELPER) Cholesterol 240(H) 100 - 199 mg/dL [facility] ACCOUNT BILL Triglycerides 217(H) 0 - 149 mg/dL [facility] ACCOUNT BILL HDL Cholesterol 43 >39 mg/dL [facility] ACCOUNT BILL VLDL Calculated 40 5 - 40 mg/dL [facility] ACCOUNT BILL LDL Calculated 157(H) 0 - 99 mg/dL [facility] ACCOUNT BILL Blood BLOOD SPECIMEN / Unknown 08/16/2024 11:56 AM REFRACTORY TILE HELPER 08/16/2024 Narrative [facility] ACCOUNT BILL - 08/17/2024 7:05 AM REFRACTORY TILE HELPER Performed at: [address] [id number] Hvac Sales Representative: Jae Mckeon PhD, Phone: [phone] Luana Mendez MD LAB - CHEMISTRY ORDERABLES [facility] [place]OUNT [place] [address] [place] [address] * GLUCOSE TESTING AT HOME (08/12/2024 10:37 AM REFRACTORY TILE HELPER) Luana Mendez MD NURSING - COMMUN ICATION * (ABNORMAL) GLUCOSE - POINT OF CARE (AMB) STL (08/12/2024) Glucose 120(A) 60 - 100 mg/dL Lot # [id number] Expiration Date 10/24/2025 QC Verified Yes Yes Blood BLOOD SPECIMEN / Unknown 08/12/2024 Luana Mendez MD LAB - POINT OF C ARE ORDERABLES * HEMOGLOBIN A1C - POINT OF CARE (HgbA1C) (08/12/2024) Hemoglobin A1c POCT 7.2 % Expiration Date 01/23/2026 Lot # [id number] QC Verified Yes Yes Blood BLOOD SPECIMEN / Unknown 08/12/2024 Luana Mendez MD LAB - POINT OF C ARE ORDERABLES * DIABETES EYE EXAM (09/13/2018) Historical Provider MD ANTON Manuel from Last 3 Months or Most Recently Relevant to Health Maintenance Administered Medications Care Teams Tar Heat Exchanger Cleaner Relationship Specialty Start Date End Date Sarath Edgar MD [address] [place] [phone] PCP - General 03/18/12 [place] [address] [facility] [address] [place], [place] [phone] Endocrinology 04/05/15 [place] [address] [facility] [address] [address] [place] [phone] Ophthalmology 06/21/16 Randa Davis DPM [address] [facility] [address] [place] [address] Podiatry 06/21/16
--- OUTSIDE RECORDS SUMMARY | 2024-10-16 17:02 | XMS_ITS | Encounter Summary ---
Author Organization [facility] Health Address [address] [place] [address] Care Team Providers Care Veterinary Meat Inspector Name Role Phone Sarath Edgar MD Primary Care Provider [phone] Jorge Olivia DO Unavailable [phone] Luana Mendez MD Unavailable Eun Duarte MD Unavailable [phone] Randa Davis DPSlime Unavailable [phone] Encounter Details Date Type Department Care Team (Late Contact Info) Description 10/08/2015 [facility] Outpatient Visit [facility] [address] [place] [address] Luana Mendez MD [address] [place] [address] Social History Tobacco Use Types Packs/Day [...] Encounters Date Type Department Care Team (Late Contact Info) Description 12/15/2024 3:00 PM CDT Office Visit [facility] - Endocrinology [id number] [place] [address], [address] [place] [phone] [place] [address] [facility] [address] [place] [address] 03/16/2025 3:00 PM CDT Office Visit [facility] - Endocrinology [phone] [place] [address], [address] [phone] [place] [address] [address] documented as of this encounter Visit Diagnoses Not on filedocumented in this encounter Care Teams Veterinary Meat Inspector Relationship Specialty Start Date End Date Sarath Edgar MD [address] [place] [phone] PCP - General 03/18/12 Jorge Olivia DO [address] [place] [phone] Orthopedic Surgery 12/03/12 06/20/16 [place] [address] [address] Endocrinology 04/05/15 [place] [address] [phone] Ophthalmology 06/21/16 Randa Davis DPM [address] [facility] [address] [place], [place] [address] [address] Podiatry 06/21/16 documented as of this encounter
--- OUTSIDE RECORDS SUMMARY | 2024-10-16 17:02 | XMS_ITS | Referral Summary ---
Author Organization [facility] Address [address] [place] [address] Care Team Providers Care Automotive Detailer Name Role Phone Sarath Edgar MD Primary Care Provider Allergies No known active allergies Medications insulin lispro-aabc (LYUMJEV) 100 unit/mL vial for injection 120 Units daily as needed 12/06/2020 Active Active Problems Problem Noted Date Diagnosed Date Adiposity 01/17/2014 Overview (12/06/2016): OBESITY NOS Gastroesophageal reflux disease 01/17/2014 Overview (12/06/2016): ESOPHAGEAL REFLUX Pure hypercholesterolemia 01/17/2014 Overview (12/07/2016): PURE HYPERCHOLESTEROLEM Type 1 diabetes mellitus without complication Overview (12/07/2016): DMI WO CMP UNCNTRLD Atopic rhinitis 01/17/2014 Overview (12/07/2016): ALLERGIC RHINITIS NOS Social History Tobacco Use Types Packs/Day Years Used Date Smoking Tobacco: Former Cigarettes 1 2012 Alcohol Use Standard Drinks/Week Comments No 0 (1 standard drink = 0.6 oz pur e alcohol) AUDIT-C Answer Date Recorded Q1: How often do you have a drink containing alc ohol? 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 on file Not on file Not on file Last Filed Vital Signs Vital Sign Reading Time Taken Comments Blood Pressure 155/87 05/26/2021 11:52 AM CDT Pulse 85 05/26/2021 11:52 AM CDT Temperature 36.1 C (96.9 F) 05/26/2021 10:05 AM CDT Respiratory Rate 16 05/26/2021 11:52 AM CDT Oxygen Saturation 98% 05/26/2021 11:52 AM CDT Inhaled Oxygen Concentration - - Weight 122.5 kg (270 lb) 05/26/2021 10:05 AM CDT Height 177.8 cm (5' 10 ) 05/26/2021 10:05 AM CDT Body Mass Index 38.74 05/26/2021 10:05 AM CDT Plan of Treatment Not on file Goals Goal Patient Goal Type Associated Problems Recent Progress Patient-Stated? Author CCM Chronic Pain Care Plan Chronic Care Management No Constance Garrido, RN Note: Problem: Chronic Pain Goals: 1. Minimize further functional decline 2. Maximize quality of life 3. Control pain Strategies: - Activity/exercise program recommendation - Conservative stepwise pain medicine strategy with multi-disciplinary approach - Recommend healthy lifestyle strategies and compensatory methods as needed Reduce the likelihood of falling Lifestyle No Constance Garrido, RN Note: Below are four things you can do to prevent falls: Begin an exercise program to improve your leg strength & balance Ask your doctor or pharmacist to review your medicines Get annual eye check-ups & update your eyeglasses Make your home safer by: Removing clutter & tripping hazards Putting railings on all stairs & adding grab bars in the bathroom Having good lighting, especially on stairs Contact your local community or [facility] for information on exercise, fall prevention programs, or options for improving home safety. Insurance BLUE [employer] CHOICE [facility]OS [facility] Care Teams Automotive Detailer Relationship Specialty Start Date End Date Sarath Edgar MD PCP - General 11/07/07
--- OUTSIDE RECORDS SUMMARY | 2024-10-16 17:02 | XMS_ITS | Patient Health Summary ---
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,non-owned Affiliates and Associated Physician Practices is amultiple site organization consisting of ambulatory clinics and hospital sitesin [place], [place], [place] and [place]. This disclosure is being madepursuant to the Care Everywhere program and may not contain all information available regarding this patient. Last updated 18.[facility] Allergies * Atorvastatin(Myalgias) * Banana(Itching) * Rosuvastatin(Myalgias) * Losartan(Dizziness) Medications * Be aware that medications may not be up to date on this document. Alwaysverify current medications with the patient. * insulin syringe-needle (BD INSULIN SYRINGE ULTRAFINE) 31G X 5/16 0.5 ML syringe(Started 08/11/2015) 1 Each by Injection route 3 times daily before meals * insulin syringe-needle (B-D INS SYR HALF-UNIT .3CC/31G) 31G X 5/16 0.3 ML syringe(Started 11/10/2015) Use as directed to inject 3 times daily 3 refills left * aspirin (ASPIRIN) 81 MG tablet(Started 09/21/2016) Take 1 Tab by mouth once daily * fluticasone propionate (FLONASE) 50 MCG/ACT nasal spray(Started 05/09/2017) [facility] 2 Sprays into each nostril once daily 3 refills remaining * B Complex-Folic Acid (SUPER B COMPLEX MAXI) TABS(Started 12/16/2018) Take 1 tablet by mouth once daily * ZYRTEC-D ALLERGY & CONGESTION 5-120 MG tablet(Started 02/25/2019) as needed * Cholecalciferol (VITAMIN D) 50 MCG (2000 UT) capsule(Started 10/07/2019) Take 1 capsule by mouth once daily * Blood Pressure Monitoring (B-D ASSURE BPM/AUTO ARM CUFF) MISC(Started 10/10/2022) Use 1 Each once daily Digital Large adult cuff for home use * blood glucose (Accu-Chek Guide) test strip(Started 11/02/2022) Use 1 (one) strip 8 times daily while awake While on insulin pump: with hypoglycemia 3 refills by 11/02/2023 * Accu-Chek Multiclix Lancets MISC(Started 11/02/2022) Use 1 Each 8 times daily while awake 3 refills by 11/02/2023 * Insulin Lispro-aabc (Lyumjev) 100 UNIT/ML SOLN(Started 11/03/2022) 120 Units by Injection route once daily as needed Replacing Humalog: [id number] unit delivered via insulin pump 3 refills by 11/03/2023 * Accu-Chek Multiclix Lancets MISC(Started 11/03/2022) Use 1 Each 8 times daily while awake 3 refills by 11/03/2023 * Accu-Chek Guide test strip(Started 11/03/2022) USE 1 (ONE) STRIP 8 TIMES DAILY WHILE AWAKE WHILE ON INSULIN PUMP: WITH HYPOGLYCEMIA 3 refills by 11/03/2023 * blood glucose (Accu-Chek Guide) test strip(Started 09/29/2024) Use 1 (one) strip 8 times daily while awake While on insulin pump: with hypoglycemia 1 refill by 09/29/2025 * Insulin Lispro-aabc (Lyumjev) 100 UNIT/ML SOLN(Started 09/29/2024) 120 Units by Injection route once daily as needed Replacing Humalog: [id number] unit delivered via insulin pump 1 refill by 09/29/2025 Ended Medications* blood glucose (Accu-Chek Guide) test strip(Started 11/03/2022) (Discontinued) Use 1 (one) strip 8 times daily while awake While on insulin pump: with hypoglycemia 3 refills by 11/03/2023 * Insulin Lispro-aabc (Lyumjev) 100 UNIT/ML SOLN(Started 04/02/2024) (Discontinued) 120 UNITS BY INJECTION ROUTE ONCE DAILY NEEDED REPLACING HUMALOG: [id number] UNIT DELIVERED VIA INSULIN PUMP 1 refill by 04/02/2025 Active Problems Problem Noted Date Diagnosed Date Elevated LFTs 07/26/2022 Dyslipidemia 12/16/2018 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 07/31/2016 Diabetic hypoglycemia 12/03/2012 Status post insertion of insulin pump 04/11/2012 Uncontrolled type 1 diabetes mellitus 03/18/2012 Resolved Problems Problem Noted Date Diagnosed Date [...] Comments Blood Pressure 132/68 08/12/2024 2:46 PM [employer] Pulse 93 08/12/2024 2:46 PM [employer] Temperature 36.7 C (98 F) 04/04/2022 9:07 AM CDT Respiratory Rate 20 07/05/2021 8:07 AM CDT Oxygen Saturation 96% 08/12/2024 2:46 PM [employer] Inhaled Oxygen Concentration - - Weight 134.7 kg (297 lb) 08/12/2024 2:46 PM [employer] Height 177.8 cm (5' 10 ) 08/12/2024 2:46 PM [employer] Body Mass Index 42.62 08/12/2024 2:46 PM [employer] Procedures * MICROALB/CREAT RATIO URINE RANDOM PANEL(Performed 08/16/2024) Performed for Uncontrolled type 1 diabetes mellitus with hypoglycemia and coma (HCC) * CBC W AUTO DIFFERENTIAL(Performed 08/16/2024) Performed for Uncontrolled type 1 diabetes mellitus with hypoglycemia and coma (HCC) * FRUCTOSAMINE(Performed 08/16/2024) Performed for Uncontrolled type 1 diabetes mellitus with hypoglycemia and coma (HCC) * COMPREHENSIVE METABOLIC PANEL(Performed 08/16/2024) Performed for Uncontrolled type 1 diabetes mellitus with hypoglycemia and coma (HCC), Diabetic hypoglycemia (HCC), Hypoglycemia unawareness associated with type 1 diabetes mellitus (HCC), Primary hypertension, Pure hypercholesterolemia * LIPID PROFILE(Performed 08/16/2024) Performed for Uncontrolled type 1 diabetes mellitus with hypoglycemia and coma (HCC), Primary hypertension, Pure hypercholesterolemia * GLUCOSE TESTING AT HOME(Performed 08/12/2024) * HEMOGLOBIN A1C - POINT OF CARE (AMB)(Performed 08/12/2024) Performed for Diabetic polyneuropathy associated with type 1 diabetes mellitus (HCC), Status post insertion of insulin pump, Diabetic hypoglycemia (HCC) * GLUCOSE - POINT OF CARE (AMB) STL(Performed 08/12/2024) Performed for Diabetic polyneuropathy associated with type 1 diabetes mellitus (HCC), Status post insertion of insulin pump, Diabetic hypoglycemia (HCC) * HEMOGLOBIN A1C - POINT OF CARE (AMB)(Performed 02/12/2024) Performed for Uncontrolled type 1 diabetes mellitus with hypoglycemia and coma (HCC) * GLUCOSE - POINT OF CARE (AMB) STL(Performed 02/12/2024) Performed for Uncontrolled type 1 diabetes mellitus with hypoglycemia and coma (HCC) * GLUCOSE - POINT OF CARE (AMB) STL(Performed 11/06/2023) Performed for Uncontrolled type 1 diabetes mellitus with hypoglycemia and coma (HCC), Diabetic hypoglycemia (HCC), Diabetic polyneuropathy associated with type 1 diabetes mellitus (HCC) * FRUCTOSAMINE(Performed 11/03/2023) Performed for Uncontrolled type 1 diabetes mellitus with hypoglycemia and coma (HCC), Diabetic hypoglycemia (HCC) * LIPID PROFILE(Performed 11/03/2023) Performed for Dyslipidemia, Elevated LFTs, Uncontrolled type 1 diabetes mellitus with hypoglycemia and coma (HCC), Diabetic hypoglycemia (HCC) * COMPREHENSIVE METABOLIC PANEL(Performed 11/03/2023) Performed for Dyslipidemia, Elevated LFTs, Uncontrolled type 1 diabetes mellitus with hypoglycemia and coma (HCC), Diabetic hypoglycemia (HCC) * MICROALB/CREAT RATIO URINE RANDOM PANEL(Performed 08/18/2023) Performed for Uncontrolled type 1 diabetes mellitus with hypoglycemia and coma (HCC), Primary hypertension * FRUCTOSAMINE(Performed 08/18/2023) Performed for Uncontrolled type 1 diabetes mellitus with hypoglycemia and coma (HCC), Primary hypertension * LIPID PROFILE(Performed 08/18/2023) Performed for Uncontrolled type 1 diabetes mellitus with hypoglycemia and coma (HCC), Primary hypertension * COMPREHENSIVE METABOLIC PANEL(Performed 08/18/2023) Performed for Uncontrolled type 1 diabetes mellitus with hypoglycemia and coma (HCC), Primary hypertension * HEMOGLOBIN A1C - POINT OF CARE (AMB)(Performed 08/13/2023) Performed for Uncontrolled type 1 diabetes mellitus with hypoglycemia and coma (HCC) * GLUCOSE - POINT OF CARE (AMB) STL(Performed 08/13/2023) Performed for Uncontrolled type 1 diabetes mellitus with hypoglycemia and coma (HCC) * GLUCOSE - POINT OF CARE (AMB) STL(Performed 05/01/2023) Performed for Uncontrolled type 1 diabetes mellitus with hypoglycemia and coma (HCC) * HEMOGLOBIN A1C - POINT OF CARE (AMB)(Performed 05/01/2023) Performed for Uncontrolled type 1 diabetes mellitus with hypoglycemia and coma (HCC) * CBC W AUTO DIFFERENTIAL(Performed 04/28/2023) Performed for Uncontrolled type 1 diabetes mellitus with hypoglycemia and coma (HCC), Male hypogonadism * TESTOSTERONE BIOAVAILABLE(Performed 04/28/2023) Performed for Male hypogonadism * FRUCTOSAMINE(Performed 04/28/2023) Performed for Uncontrolled type 1 diabetes mellitus with hypoglycemia and coma (HCC) * COMPREHENSIVE METABOLIC PANEL(Performed 04/28/2023) Performed for Uncontrolled type 1 diabetes mellitus with hypoglycemia and coma (HCC), Diabetic hypoglycemia (HCC), Pure hypercholesterolemia, Male hypogonadism, Liver enzyme elevation, HTN, goal below 130/80 * LIPID PROFILE(Performed 04/28/2023) Performed for Uncontrolled type 1 diabetes mellitus with hypoglycemia and coma (HCC), Diabetic hypoglycemia (HCC), Pure hypercholesterolemia, Liver enzyme elevation, HTN, goal below 130/80 * HEPATIC FUNCTION PANEL(Performed 10/28/2022) Performed for Liver enzyme elevation * TESTOSTERONE BIOAVAILABLE(Performed 10/28/2022) Performed for Male hypogonadism * HEMOGLOBIN A1C W EAG(Performed 10/28/2022) Performed for Uncontrolled type 1 diabetes mellitus with hypoglycemia and coma (HCC) * FRUCTOSAMINE(Performed 10/28/2022) Performed for Uncontrolled type 1 diabetes mellitus with hypoglycemia and coma (HCC) * COMPREHENSIVE METABOLIC PANEL(Performed 10/28/2022) Performed for Diabetic hypoglycemia (HCC), Pure hypercholesterolemia, Dyslipidemia, Male hypogonadism, Uncontrolled type 1 diabetes mellitus with hypoglycemia and coma (HCC), Liver enzyme elevation * LIPID PROFILE(Performed 10/28/2022) Performed for Pure hypercholesterolemia, Dyslipidemia * GLUCOSE - POINT OF CARE (AMB) STL(Performed 10/10/2022) Performed for Uncontrolled type 1 diabetes mellitus with hypoglycemia and coma (HCC) * VITAMIN B12 FOLATE PANEL(Performed 10/07/2022) Performed for Excessive vitamin B12 intake * FRUCTOSAMINE(Performed 10/07/2022) Performed for Uncontrolled type 1 diabetes mellitus with hypoglycemia and coma (HCC) * COMPREHENSIVE METABOLIC PANEL(Performed 10/07/2022) Performed for Uncontrolled type 1 diabetes mellitus with hypoglycemia and coma (HCC) * MICROALB/CREAT RATIO URINE RANDOM PANEL(Performed 07/17/2022) Performed for Uncontrolled type 1 diabetes mellitus with hypoglycemia and coma (HCC) * CBC W AUTO DIFFERENTIAL(Performed 07/17/2022) Performed for Uncontrolled type 1 diabetes mellitus with hypoglycemia and coma (HCC), Pure hypercholesterolemia, Dyslipidemia, Vitamin D deficiency, HTN, goal below 130/80 * LIPID PROFILE(Performed 07/17/2022) Performed for Uncontrolled type 1 diabetes mellitus with hypoglycemia and coma (HCC), Pure hypercholesterolemia, Dyslipidemia, Vitamin D deficiency, HTN, goal below 130/80 * FRUCTOSAMINE(Performed 07/17/2022) Performed for Uncontrolled type 1 diabetes mellitus with hypoglycemia and coma (HCC), Pure hypercholesterolemia, Dyslipidemia, Vitamin D deficiency, HTN, goal below 130/80 * COMPREHENSIVE METABOLIC PANEL(Performed 07/17/2022) Performed for Uncontrolled type 1 diabetes mellitus with hypoglycemia and coma (HCC), Pure hypercholesterolemia, Dyslipidemia, Vitamin D deficiency, HTN, goal below 130/80 * CBC W AUTO DIFFERENTIAL(Performed 07/17/2022) Performed for Uncontrolled type 1 diabetes mellitus with hypoglycemia and coma (HCC), Dyslipidemia * VITAMIN D 25-HYDROXY(Performed 07/17/2022) Performed for Uncontrolled type 1 diabetes mellitus with hypoglycemia and coma (HCC), Dyslipidemia * HEMOGLOBIN A1C(Performed 07/17/2022) Performed for Uncontrolled type 1 diabetes mellitus with hypoglycemia and coma (HCC) * FRUCTOSAMINE(Performed 07/17/2022) Performed for Uncontrolled type 1 diabetes mellitus with hypoglycemia and coma (HCC) * MICROALB/CREAT RATIO URINE RANDOM PANEL(Performed 07/17/2022) Performed for Uncontrolled type 1 diabetes mellitus with hypoglycemia and coma (HCC), Dyslipidemia * COMPREHENSIVE METABOLIC PANEL(Performed 07/17/2022) Performed for Uncontrolled type 1 diabetes mellitus with hypoglycemia and coma (HCC), Dyslipidemia * LIPID PROFILE(Performed 07/17/2022) Performed for Uncontrolled type 1 diabetes mellitus with hypoglycemia and coma (HCC), Vitamin D deficiency, Pure hypercholesterolemia, Dyslipidemia * FRUCTOSAMINE(Performed 07/17/2022) Performed for Diabetic polyneuropathy associated with type 1 diabetes mellitus (HCC) * LIPID PROFILE(Performed 07/17/2022) Performed for Uncontrolled type 1 diabetes mellitus with hypoglycemia and coma (HCC), Dyslipidemia,Pure hypercholesterolemia * GLUCOSE - POINT OF CARE (AMB) STL(Performed 07/17/2022) Performed for Uncontrolled type 1 diabetes mellitus with hypoglycemia and coma (HCC), Diabetic hypoglycemia (HCC), Diabetic polyneuropathy associated with type 1 diabetes mellitus (HCC) * HEMOGLOBIN A1C - POINT OF CARE (AMB)(Performed 07/17/2022) Performed for Uncontrolled type 1 diabetes mellitus with hypoglycemia and coma (HCC), Diabetic hypoglycemia (HCC), Diabetic polyneuropathy associated with type 1 diabetes mellitus (HCC) * VITAMIN B12 FOLATE PANEL(Performed 04/04/2022) Performed for Uncontrolled type 1 diabetes mellitus with hypoglycemia and coma (HCC), Fatigue, unspecified type * VITAMIN D 25-HYDROXY(Performed 04/04/2022) Performed for Vitamin D deficiency * TESTOSTERONE BIOAVAILABLE(Performed 04/04/2022) Performed for Male hypogonadism * T3 TOTAL(Performed 04/04/2022) Performed for Fatigue, unspecified type, Leg swelling * T4 FREE(Performed 04/04/2022) Performed for Fatigue, unspecified type, Leg swelling * TSH(Performed 04/04/2022) Performed for Fatigue, unspecified type, Leg swelling * FRUCTOSAMINE(Performed 04/04/2022) Performed for Uncontrolled type 1 diabetes mellitus with hypoglycemia and coma (HCC) * MICROALB/CREAT RATIO URINE RANDOM PANEL(Performed 04/04/2022) Performed for Uncontrolled type 1 diabetes mellitus with hypoglycemia and coma (HCC), Pure hypercholesterolemia, Dyslipidemia, Hypoglycemia unawareness associated with type 1 diabetes mellitus (HCC),HTN, goal below 130/80, Leg swelling * CBC W AUTO DIFFERENTIAL(Performed 04/04/2022) Performed for Uncontrolled type 1 diabetes mellitus with hypoglycemia and coma (HCC), Pure hypercholesterolemia, Dyslipidemia, Hypoglycemia unawareness associated with type 1 diabetes mellitus (HCC),HTN, goal below 130/80, Fatigue, unspecified type, Leg swelling, Male hypogonadism * LIPID PROFILE(Performed 04/04/2022) Performed for Uncontrolled type 1 diabetes mellitus with hypoglycemia and coma (HCC), Pure hypercholesterolemia, Dyslipidemia, Hypoglycemia unawareness associated with type 1 diabetes mellitus (HCC),HTN, goal below 130/80 * COMPREHENSIVE METABOLIC PANEL(Performed 04/04/2022) Performed for Uncontrolled type 1 diabetes mellitus with hypoglycemia and coma (HCC), Pure hypercholesterolemia, Dyslipidemia, Hypoglycemia unawareness associated with type 1 diabetes mellitus (HCC),HTN, goal below 130/80, Fatigue, unspecified type, Leg swelling, Male hypogonadism, Vitamin D deficiency * GLUCOSE - POINT OF CARE (AMB) STL(Performed 04/04/2022) Performed for Uncontrolled type 1 diabetes mellitus with hypoglycemia and coma (HCC) * HEMOGLOBIN A1C - POINT OF CARE (AMB)(Performed 04/04/2022) Performed for Uncontrolled type 1 diabetes mellitus with hypoglycemia and coma (HCC) * GLUCOSE - POINT OF CARE (AMB) STL(Performed 01/04/2022) Performed for Uncontrolled type 1 diabetes mellitus with hypoglycemia and coma (HCC) * HEMOGLOBIN A1C - POINT OF CARE (AMB)(Performed 01/04/2022) Performed for Uncontrolled type 1 diabetes mellitus with hypoglycemia and coma (HCC) * FRUCTOSAMINE(Performed 11/26/2021) Performed for Uncontrolled type 1 diabetes mellitus with hypoglycemia and coma (HCC) * LIPID PROFILE(Performed 10/04/2021) Performed for Uncontrolled type 1 diabetes mellitus with hypoglycemia and coma (HCC), Pure hypercholesterolemia, HTN, goal below 130/80, Dyslipidemia * COMPREHENSIVE METABOLIC PANEL(Performed 10/04/2021) Performed for Uncontrolled type 1 diabetes mellitus with hypoglycemia and coma (HCC), Vitamin D deficiency, Diabetic polyneuropathy associated with type 1 diabetes mellitus (HCC), Pure hypercholesterolemia, HTN, goal below 130/80, Dyslipidemia, Atypical chest pain, Blister of toe of right foot without infection, initial encounter * HEMOGLOBIN A1C W EAG(Performed 10/04/2021) Performed for Uncontrolled type 1 diabetes mellitus with hypoglycemia and coma (HCC) * HEMOGLOBIN A1C - POINT OF CARE (AMB)(Performed 07/05/2021) Performed for Uncontrolled type 1 diabetes mellitus with hypoglycemia and coma (HCC) * GLUCOSE - POINT OF CARE (AMB) STL(Performed 07/05/2021) Performed for Uncontrolled type 1 diabetes mellitus with hypoglycemia and coma (HCC) * VITAMIN D 25-HYDROXY(Performed 06/11/2021) Performed for Uncontrolled type 1 diabetes mellitus with hypoglycemia and coma (HCC) * LIPID PROFILE(Performed 06/11/2021) Performed for Uncontrolled type 1 diabetes mellitus with hypoglycemia and coma (HCC) * COMPREHENSIVE METABOLIC PANEL(Performed 06/11/2021) Performed for Uncontrolled type 1 diabetes mellitus with hypoglycemia and coma (HCC) * VITAMIN D 25-HYDROXY(Performed 12/08/2020) Performed for Uncontrolled type 1 diabetes mellitus with hypoglycemia and coma (HCC), Vitamin D deficiency * VITAMIN B12 FOLATE PANEL(Performed 12/08/2020) Performed for Uncontrolled type 1 diabetes mellitus with hypoglycemia and coma (HCC) * HEMOGLOBIN A1C W EAG(Performed 12/08/2020) Performed for Uncontrolled type 1 diabetes mellitus with hypoglycemia and coma (HCC) * MICROALB/CREAT RATIO URINE RANDOM PANEL(Performed 12/08/2020) Performed for Uncontrolled type 1 diabetes mellitus with hypoglycemia and coma (HCC) * CBC W AUTO DIFFERENTIAL(Performed 12/08/2020) Performed for Uncontrolled type 1 diabetes mellitus with hypoglycemia and coma (HCC) * LIPID PROFILE(Performed 12/08/2020) Performed for Uncontrolled type 1 diabetes mellitus with hypoglycemia and coma (HCC) * FRUCTOSAMINE(Performed 12/08/2020) Performed for Uncontrolled type 1 diabetes mellitus with hypoglycemia and coma (HCC) * COMPREHENSIVE METABOLIC PANEL(Performed 12/08/2020) Performed for Uncontrolled type 1 diabetes mellitus with hypoglycemia and coma (HCC) * GLUCOSE - POINT OF CARE (AMB) STL(Performed 12/08/2020) Performed for Uncontrolled type 1 diabetes mellitus with hypoglycemia and coma (HCC) * LIPID PROFILE(Performed 08/14/2020) Performed for Diabetic polyneuropathy associated with type 1 diabetes mellitus (HCC), Pure hypercholesterolemia, HTN, goal below 130/80 * COMPREHENSIVE METABOLIC PANEL(Performed 08/14/2020) Performed for Diabetic polyneuropathy associated with type 1 diabetes mellitus (HCC), Pure hypercholesterolemia, HTN, goal below 130/80 * HEMOGLOBIN A1C(Performed 08/14/2020) Performed for Diabetic polyneuropathy associated with type 1 diabetes mellitus (HCC), Pure hypercholesterolemia, HTN, goal below 130/80 * VITAMIN D 25-HYDROXY(Performed 01/17/2020) Performed for Vitamin D deficiency * CBC W AUTO DIFFERENTIAL(Performed 01/17/2020) Performed for Diabetic polyneuropathy associated with type 1 diabetes mellitus (HCC), Vitamin D deficiency, Diabetic hypoglycemia (HCC), Pure hypercholesterolemia, HTN, goal below 130/80 * FRUCTOSAMINE(Performed 01/17/2020) Performed for Diabetic polyneuropathy associated with type 1 diabetes mellitus (HCC) * LIPID PROFILE(Performed 01/17/2020) Performed for Diabetic polyneuropathy associated with type 1 diabetes mellitus (HCC), Vitamin D deficiency, Diabetic hypoglycemia (HCC), Pure hypercholesterolemia, HTN, goal below 130/80 * HEMOGLOBIN A1C(Performed 01/17/2020) Performed for Diabetic polyneuropathy associated with type 1 diabetes mellitus (HCC), Vitamin D deficiency, Diabetic hypoglycemia (HCC), Pure hypercholesterolemia, HTN, goal below 130/80 * COMPREHENSIVE METABOLIC PANEL(Performed 01/17/2020) Performed for Diabetic polyneuropathy associated with type 1 diabetes mellitus (HCC), Vitamin D deficiency, Diabetic hypoglycemia (HCC), Pure hypercholesterolemia, HTN, goal below 130/80 * FRUCTOSAMINE(Performed 10/06/2019) Performed for Diabetic polyneuropathy associated with type 1 diabetes mellitus (HCC) * VITAMIN D 25-HYDROXY(Performed 10/06/2019) Performed for Vitamin D deficiency * C-PEPTIDE(Performed 10/06/2019) Performed for Diabetic polyneuropathy associated with type 1 diabetes mellitus (HCC) * TSH(Performed 10/06/2019) Performed for Diabetic polyneuropathy associated with type 1 diabetes mellitus (HCC) * MICROALB/CREAT RATIO URINE RANDOM PANEL(Performed 10/06/2019) Performed for Diabetic polyneuropathy associated with type 1 diabetes mellitus (HCC) * LIPID PROFILE(Performed 10/06/2019) Performed for Diabetic polyneuropathy associated with type 1 diabetes mellitus (HCC), Dyslipidemia * COMPREHENSIVE METABOLIC PANEL(Performed 10/06/2019) Performed for Diabetic polyneuropathy associated with type 1 diabetes mellitus (HCC) * GLUCOSE - POINT OF CARE (AMB) STL(Performed 10/06/2019) Performed for Diabetic polyneuropathy associated with type 1 diabetes mellitus (HCC) * HEMOGLOBIN A1C - POINT OF CARE (AMB)(Performed 10/06/2019) Performed for Diabetic polyneuropathy associated with type 1 diabetes mellitus (HCC) * HEMOGLOBIN A1C(Performed 06/17/2019) Performed for Uncontrolled type 1 diabetes mellitus with hypoglycemia and coma (HCC) * FRUCTOSAMINE(Performed 06/17/2019) Performed for Uncontrolled type 1 diabetes mellitus with hyperglycemia (HCC), Diabetic hypoglycemia(HCC) * COMPREHENSIVE METABOLIC PANEL(Performed 06/17/2019) Performed for Uncontrolled type 1 diabetes mellitus with hyperglycemia (HCC), Diabetic hypoglycemia(HCC) * MICROALB/CREAT RATIO URINE RANDOM PANEL(Performed 06/17/2019) Performed for Uncontrolled type 1 diabetes mellitus with hyperglycemia (HCC), Diabetic hypoglycemia(HCC) * HEMOGLOBIN A1C - POINT OF CARE (AMB)(Performed 06/17/2019) Performed for Uncontrolled type 1 diabetes mellitus with hypoglycemia and coma (HCC) * GLUCOSE - POINT OF CARE (AMB) STL(Performed 03/12/2019) Performed for Uncontrolled type 1 diabetes mellitus with hypoglycemia and coma (HCC) * FRUCTOSAMINE(Performed 12/16/2018) Performed for Diabetic polyneuropathy associated with type 1 diabetes mellitus (HCC) * LIPID PROFILE(Performed 12/16/2018) Performed for Diabetic polyneuropathy associated with type 1 diabetes mellitus (HCC) * COMPREHENSIVE METABOLIC PANEL(Performed 12/16/2018) Performed for Diabetic polyneuropathy associated with type 1 diabetes mellitus (HCC) * GLUCOSE - POINT OF CARE (AMB) STL(Performed 12/16/2018) Performed for Diabetic polyneuropathy associated with type 1 diabetes mellitus (HCC) * HEMOGLOBIN A1C - POINT OF CARE (AMB)(Performed 12/16/2018) Performed for Diabetic polyneuropathy associated with type 1 diabetes mellitus (HCC) * GLUCOSE - POINT OF CARE (AMB) STL(Performed 09/16/2018) Performed for Diabetic polyneuropathy associated with type 1 diabetes mellitus (HCC) * HEMOGLOBIN A1C - POINT OF CARE (AMB)(Performed 09/16/2018) Performed for Diabetic polyneuropathy associated with type 1 diabetes mellitus (HCC) * HM DIABETES EYE EXAM(Performed 09/13/2018) * FRUCTOSAMINE(Performed 09/12/2018) Performed for Uncontrolled type 1 diabetes mellitus with hypoglycemia without coma (HCC), Diabetic polyneuropathy associated with type 1 diabetes mellitus (HCC) * LIPID PROFILE(Performed 09/12/2018) Performed for Uncontrolled type 1 diabetes mellitus with hypoglycemia without coma (HCC), Diabetic polyneuropathy associated with type 1 diabetes mellitus (HCC), Mixed hyperlipidemia * COMPREHENSIVE METABOLIC PANEL(Performed 09/12/2018) Performed for Uncontrolled type 1 diabetes mellitus with hypoglycemia without coma (HCC), Diabetic polyneuropathy associated with type 1 diabetes mellitus (HCC), Mixed hyperlipidemia * CBC W AUTO DIFFERENTIAL(Performed 06/15/2018) Performed for Diabetic polyneuropathy associated with type 1 diabetes mellitus (HCC), Mixed hyperlipidemia, Diabetic hypoglycemia (HCC) * FRUCTOSAMINE(Performed 06/15/2018) Performed for Diabetic polyneuropathy associated with type 1 diabetes mellitus (HCC) * LIPID PROFILE(Performed 06/15/2018) Performed for Diabetic polyneuropathy associated with type 1 diabetes mellitus (HCC), Mixed hyperlipidemia, Diabetic hypoglycemia (HCC) * COMPREHENSIVE METABOLIC PANEL(Performed 06/15/2018) Performed for Diabetic polyneuropathy associated with type 1 diabetes mellitus (HCC), Mixed hyperlipidemia, Diabetic hypoglycemia (HCC) * GLUCOSE - POINT OF CARE (AMB) STL(Performed 06/10/2018) Performed for Diabetic polyneuropathy associated with type 1 diabetes mellitus (HCC) * HEMOGLOBIN A1C - POINT OF CARE (AMB)(Performed 06/10/2018) Performed for Diabetic polyneuropathy associated with type 1 diabetes mellitus (HCC) * GLUCOSE - POINT OF CARE (AMB) STL(Performed 02/07/2018) Performed for Type 1 diabetes mellitus with hyperglycemia, with long-term current use of insulin (HCC) * HEMOGLOBIN A1C - POINT OF CARE (AMB)(Performed 02/07/2018) Performed for Type 1 diabetes mellitus with hyperglycemia, with long-term current use of insulin (HCC) * MICROALB/CREAT RATIO URINE RANDOM PANEL(Performed 11/07/2017) Performed for Diabetic polyneuropathy associated with type 1 diabetes mellitus (HCC), HTN, goal below 130/80 * FRUCTOSAMINE(Performed 11/07/2017) Performed for Diabetic polyneuropathy associated with type 1 diabetes mellitus (HCC), HTN, goal below 130/80, Mixed hyperlipidemia * LIPID PROFILE(Performed 11/07/2017) Performed for Diabetic polyneuropathy associated with type 1 diabetes mellitus (HCC), HTN, goal below 130/80, Mixed hyperlipidemia * COMPREHENSIVE METABOLIC PANEL(Performed 11/07/2017) Performed for Diabetic polyneuropathy associated with type 1 diabetes mellitus (HCC), HTN, goal below 130/80, Mixed hyperlipidemia * HEMOGLOBIN A1C - POINT OF CARE (AMB)(Performed 11/07/2017) Performed for Diabetic polyneuropathy associated with type 1 diabetes mellitus (HCC), HTN, goal below 130/80, Mixed hyperlipidemia * GLUCOSE - POINT OF CARE (AMB) STL(Performed 11/07/2017) Performed for Diabetic polyneuropathy associated with type 1 diabetes mellitus (HCC), HTN, goal below 130/80, Mixed hyperlipidemia * HEMOGLOBIN A1C(Performed 08/06/2017) Performed for Diabetic polyneuropathy associated with type 1 diabetes mellitus (HCC) * FRUCTOSAMINE(Performed 08/06/2017) Performed for Diabetic polyneuropathy associated with type 1 diabetes mellitus (HCC) * LIPID PROFILE(Performed 08/06/2017) Performed for Diabetic polyneuropathy associated with type 1 diabetes mellitus (HCC), Pure hypercholesterolemia * COMPREHENSIVE METABOLIC PANEL(Performed 08/06/2017) Performed for Diabetic polyneuropathy associated with type 1 diabetes mellitus (HCC), Pure hypercholesterolemia * HEMOGLOBIN A1C(Performed 05/09/2017) Performed for Diabetic polyneuropathy associated with type 1 diabetes mellitus (HCC) * FRUCTOSAMINE(Performed 05/09/2017) Performed for Diabetic polyneuropathy associated with type 1 diabetes mellitus (HCC) * CBC W AUTO DIFFERENTIAL(Performed 05/09/2017) Performed for Diabetic polyneuropathy associated with type 1 diabetes mellitus (HCC) * COMPREHENSIVE METABOLIC PANEL(Performed 05/09/2017) Performed for Diabetic polyneuropathy associated with type 1 diabetes mellitus (HCC) * LIPID PROFILE(Performed 05/09/2017) Performed for Diabetic polyneuropathy associated with type 1 diabetes mellitus (HCC) * HEMOGLOBIN A1C - POINT OF CARE (AMB)(Performed 05/09/2017) Performed for Uncontrolled type 1 diabetes mellitus with microalbuminuria * GLUCOSE - POINT OF CARE (AMB) STL(Performed 05/09/2017) Performed for Uncontrolled type 1 diabetes mellitus with microalbuminuria * HEMOGLOBIN A1C - POINT OF CARE (AMB)(Performed 02/06/2017) Performed for Diabetic polyneuropathy associated with type 1 diabetes mellitus (HCC) * HM DIABETES EYE EXAM(Performed 11/29/2016) * TSH(Performed 09/21/2016) Performed for Poorly controlled type 1 diabetes mellitus (HCC), Diabetic hypoglycemia (HCC) * MICROALB/CREAT RATIO URINE RANDOM PANEL(Performed 09/21/2016) Performed for Poorly controlled type 1 diabetes mellitus (HCC), Diabetic hypoglycemia (HCC) * LIPID PROFILE(Performed 09/21/2016) Performed for Mixed hyperlipidemia * CBC W AUTO DIFFERENTIAL(Performed 09/21/2016) Performed for Poorly controlled type 1 diabetes mellitus (HCC), Diabetic hypoglycemia (HCC), Mixed hyperlipidemia * FRUCTOSAMINE(Performed 09/21/2016) Performed for Poorly controlled type 1 diabetes mellitus (HCC), Diabetic hypoglycemia (HCC) * COMPREHENSIVE METABOLIC PANEL(Performed 09/21/2016) Performed for Poorly controlled type 1 diabetes mellitus (HCC), Diabetic hypoglycemia (HCC), Mixed hyperlipidemia * T4 FREE(Performed 09/21/2016) Performed for Poorly controlled type 1 diabetes mellitus (HCC) * HEMOGLOBIN A1C - POINT OF CARE (AMB)(Performed 09/21/2016) Performed for Diabetic polyneuropathy associated with type 1 diabetes mellitus (HCC) * HEMOGLOBIN A1C - POINT OF CARE (AMB)(Performed 06/21/2016) Performed for Poorly controlled type 1 diabetes mellitus (HCC) * DIABETES EYE EXAM(Performed 05/18/2016) * LIPID PROFILE(Performed 04/01/2016) Performed for Uncontrolled type 1 diabetes mellitus * BASIC METABOLIC PANEL (CALCIUM TOTAL)(Performed 04/01/2016) Performed for Uncontrolled type 1 diabetes mellitus * GLUCOSE - POINT OF CARE (AMB) STL(Performed 03/13/2016) Performed for Uncontrolled type 1 diabetes mellitus with stage 1 chronic kidney disease, with long-term current use of insulin * HEMOGLOBIN A1C - POINT OF CARE (AMB)(Performed 03/13/2016) Performed for Uncontrolled type 1 diabetes mellitus with stage 1 chronic kidney disease, with long-term current use of insulin * DIABETES EYE EXAM(Performed 11/18/2015) * GLUCOSE - POINT OF CARE(Performed 08/11/2015) Performed for Uncontrolled type 1 diabetes with neuropathy * HEMOGLOBIN A1C - POINT OF CARE (AMB)(Performed 08/11/2015) Performed for Uncontrolled type 1 diabetes with neuropathy * EMG WITH NERVE CONDUCTION STUDY(Performed 05/26/2015) Performed for Type I (juvenile type) diabetes mellitus without mention of complication, uncontrolled, Bilateral foot pain * XR FOOT BILAT 3VW OR MORE(Performed 04/29/2015) Performed for Plantar fasciitis, bilateral, Arch pain, left, Type I (juvenile type) diabetes mellitus without mention of complication, uncontrolled, Arthralgia of foot, unspecified laterality * TSH(Performed 04/24/2015) Performed for Type I (juvenile type) diabetes mellitus without mention of complication, uncontrolled * HEMOGLOBIN A1C(Performed 04/24/2015) Performed for Type I (juvenile type) diabetes mellitus without mention of complication, uncontrolled * CBC W AUTO DIFFERENTIAL(Performed 04/24/2015) Performed for Type I (juvenile type) diabetes mellitus without mention of complication, uncontrolled, Diabetic hypoglycemia (HCC) * COMPREHENSIVE METABOLIC PANEL(Performed 04/24/2015) Performed for Type I (juvenile type) diabetes mellitus without mention of complication, uncontrolled, Hyperlipidemia, Diabetic hypoglycemia (HCC) * LIPID PROFILE(Performed 04/24/2015) Performed for Type I (juvenile type) diabetes mellitus without mention of complication, uncontrolled, Hyperlipidemia * MICROALB/CREAT RATIO URINE RANDOM PANEL(Performed 04/24/2015) Performed for Type I (juvenile type) diabetes mellitus without mention of complication, uncontrolled * HEMOGLOBIN A1C(Performed 07/25/2014) Performed for Type I (juvenile type) diabetes mellitus without mention of complication, uncontrolled * COMPREHENSIVE METABOLIC PANEL(Performed 07/25/2014) Performed for Type I (juvenile type) diabetes mellitus without mention of complication, uncontrolled * DERMATOPATHOLOGY(Performed 04/23/2014) * LIPID PROFILE(Performed 02/28/2014) Performed for Type I (juvenile type) diabetes mellitus without mention of complication, uncontrolled * CBC W AUTO DIFFERENTIAL(Performed 02/28/2014) Performed for Type I (juvenile type) diabetes mellitus without mention of complication, uncontrolled * COMPREHENSIVE METABOLIC PANEL(Performed 02/28/2014) Performed for Type I (juvenile type) diabetes mellitus without mention of complication, uncontrolled * HEMOGLOBIN A1C(Performed 02/28/2014) Performed for Type I (juvenile type) diabetes mellitus without mention of complication, uncontrolled * GLUCOSE - POINT OF CARE(Performed 10/28/2013) Performed for Type I (juvenile type) diabetes mellitus without mention of complication, uncontrolled * FRUCTOSAMINE(Performed 07/05/2013) Performed for Type I (juvenile type) diabetes mellitus without mention of complication, uncontrolled * LIPID PROFILE(Performed 07/05/2013) Performed for Hyperlipidemia * HEMOGLOBIN A1C(Performed 07/05/2013) Performed for Type I (juvenile type) diabetes mellitus without mention of complication, uncontrolled * COMPREHENSIVE METABOLIC PANEL(Performed 07/05/2013) Performed for Hyperlipidemia * GLUCOSE - POINT OF CARE(Performed 06/30/2013) Performed for Type I (juvenile type) diabetes mellitus without mention of complication, uncontrolled * MICROALB/CREAT RATIO URINE RANDOM PANEL(Performed 03/14/2013) Performed for Type I (Juvenile Type) Diabetes Mellitus Without Mention Of Complication, Uncontrolled * HEMOGLOBIN A1C(Performed 03/14/2013) Performed for Type I (Juvenile Type) Diabetes Mellitus Without Mention Of Complication, Uncontrolled * CBC W AUTO DIFFERENTIAL(Performed 03/14/2013) Performed for Type I (Juvenile Type) Diabetes Mellitus Without Mention Of Complication, Uncontrolled * LIPID PROFILE(Performed 03/14/2013) Performed for Type I (Juvenile Type) Diabetes Mellitus Without Mention Of Complication, Uncontrolled * COMPREHENSIVE METABOLIC PANEL(Performed 03/14/2013) Performed for Type I (Juvenile Type) Diabetes Mellitus Without Mention Of Complication, Uncontrolled * GLUCOSE - POINT OF CARE(Performed 03/14/2013) Performed for Type I (Juvenile Type) Diabetes Mellitus Without Mention Of Complication, Uncontrolled * GLUCOSE - POINT OF CARE(Performed 12/03/2012) Performed for Type I (juvenile type) diabetes mellitus without mention of complication, uncontrolled * GLUCOSE - POINT OF CARE(Performed 09/23/2012) Performed for Type I (juvenile type) diabetes mellitus without mention of complication, uncontrolled * LAB RESULTS ORDER(Performed 09/16/2012) * MICROALB/CREAT RATIO URINE RANDOM PANEL(Performed 03/30/2012) Performed for Type I (juvenile type) diabetes mellitus without mention of complication, uncontrolled * CBC W AUTO DIFFERENTIAL(Performed 03/30/2012) Performed for Type I (juvenile type) diabetes mellitus without mention of complication, uncontrolled * LIPID PROFILE(Performed 03/30/2012) Performed for Type I (juvenile type) diabetes mellitus without mention of complication, uncontrolled * COMPREHENSIVE METABOLIC PANEL(Performed 03/30/2012) Performed for Type I (juvenile type) diabetes mellitus without mention of complication, uncontrolled * HEMOGLOBIN A1C(Performed 03/30/2012) Performed for Type I (juvenile type) diabetes mellitus without mention of complication, uncontrolled * GLUCOSE - POINT OF CARE(Performed 03/18/2012) Performed for Type I (juvenile type) diabetes mellitus without mention of complication, uncontrolled Results * MICROALB/CREAT RATIO URINE RANDOM PANEL (08/16/2024 11:56 AM COLLECTOR OF AQUARIUM SPECIMENS) Only the most recent of13 resultswithin the time period is included. Creatinine Urine 181.3 Not Estab. mg/dL [facility] ACCOUNT BILL Microalbumin Urine 9.8 Not Estab. ug/mL [facility] ACCOUNT BILL Microalbumin/Crea tinine Ratio 5 0 - 29 mg/g creat [facility] ACCOUNT BILL Comment: Normal: 0 - 29 Moderately increased: 30 - 300 Severely increased: >300 Urine URINE SPECIMEN OBTAINED BY CLEAN CATCH PROCEDURE / Unknown 08/16/2024 11:56 AM COLLECTOR OF AQUARIUM SPECIMENS 08/16/2024 Narrative [facility] ACCOUNT BILL - 08/17/2024 7:05 AM COLLECTOR OF AQUARIUM SPECIMENS Performed at: [facility] [id number] Roadway Technician: Jae Mckeon PhD, Phone: [phone] Luana Mendez MD LAB - URINE CHEM ISTRY ORDERABLES Performing Organization Address [facility] de Phone Number [facility] ACCOUNT BILL [address] [place] [address] * (ABNORMAL) FRUCTOSAMINE (08/16/2024 11:56 AM COLLECTOR OF AQUARIUM SPECIMENS) Only the most recent of23 resultswithin the time period is included. Fructosamine 291(H) 0 - 285 umol/L [facility] ACCOUNT BILL Comment: Published reference interval for apparently healthy subjects between age 20 and 60 is 205 - 285 umol/L and in a poorly controlled diabetic population is 228 - 563 umol/L with a mean of 396 umol/L. Blood BLOOD SPECIMEN / Unknown 08/16/2024 11:56 AM COLLECTOR OF AQUARIUM SPECIMENS 08/16/2024 Narrative [facility] ACCOUNT BILL - 08/17/2024 8:05 AM COLLECTOR OF AQUARIUM SPECIMENS Performed at: [address] [id number] Road[address] Technician: Jae Mckeon PhD, Phone: [phone] Luana Mendez MD LAB - CHEMISTRY ORDERABLES Performing Organization Address [facility] de Phone Number [facility] ACCOUNT BILL [address] [place] [address] * CBC WITH DIFFERENTIAL (08/16/2024 11:56 AM COLLECTOR OF AQUARIUM SPECIMENS) Only the most recent of14 resultswithin the time period is included. WBC 5.3 3.4 - 10.8 x10E3/uL [facility] [...] BLOOD SPECIMEN / Unknown 08/16/2024 11:56 AM COLLECTOR OF AQUARIUM SPECIMENS 08/16/2024 Narrative [facility] ACCOUNT BILL - 08/17/2024 7:05 AM COLLECTOR OF AQUARIUM SPECIMENS Performed at: 01 - [facility] [id number] Road[address] Technician: Jae Mckeon PhD, Phone: [phone] Luana Mendez MD LAB - HEMATOLOGY ORDERABLES [facility] ACCOUNT BILL [address] [place] [address] * COMPREHENSIVE METABOLIC PANEL (08/16/2024 11:56 AM COLLECTOR OF AQUARIUM SPECIMENS) Only the most recent of29 resultswithin the time period is included. Glucose 94 70 - 99 mg/dL [facility] [...] BLOOD SPECIMEN / Unknown 08/16/2024 11:56 AM COLLECTOR OF AQUARIUM SPECIMENS 08/16/2024 Narrative [facility] ACCOUNT BILL - 08/17/2024 7:05 AM COLLECTOR OF AQUARIUM SPECIMENS Performed at: 01 - [address] [id number] Roadway Technician: Jae Mckeon PhD, Phone: [phone] Luana Mendez MD LAB - CHEMISTRY ORDERABLES [facility] ACCOUNT BILL [address] [place] [address] * (ABNORMAL) LIPID PROFILE (08/16/2024 11:56 AM COLLECTOR OF AQUARI[employer] SPECIMENS) Only the most recent of28 resultswithin the time period is included. Cholesterol 240(H) 100 - 199 mg/dL [facility] ACCOUNT BILL Triglycerides 217(H) 0 - 149 mg/dL [facility] ACCOUNT BILL HDL Cholesterol 43 >39 mg/dL [facility] ACCOUNT BILL VLDL Calculated 40 5 - 40 mg/dL [facility] ACCOUNT BILL LDL Calculated 157(H) 0 - 99 mg/dL [facility] ACCOUNT BILL Blood BLOOD SPECIMEN / Unknown 08/16/2024 11:56 AM COLLECTOR OF AQUARIUM SPECIMENS 08/16/2024 Narrative [facility] ACCOUNT BILL - 08/17/2024 7:05 AM COLLECTOR OF AQUARIUM SPECIMENS Performed at: 01 - [facility] [address] [id number] [address] Technician: Jae Mckeon PhD, Phone: [phone] Luana Mendez MD LAB - CHEMISTRY ORDERABLES [facility] ACCOUNT BILL [address] [place] [address] * GLUCOSE TESTING AT HOME (08/12/2024 10:37 AM COLLECTOR OF AQUARIUM SPECIMENS) Luana Mendez MD NURSING - COMMUN ICATION * (ABNORMAL) GLUCOSE - POINT OF CARE (AMB) STL (08/12/2024) Only the most recent of20 resultswithin the time period is included. Glucose 120(A) 60 - 100 mg/dL Lot # [id number] Expiration Date 10/24/2025 QC Verified Yes Yes Blood BLOOD SPECIMEN / Unknown 08/12/2024 Luana Mendez MD LAB - POINT OF C ARE ORDERABLES * HEMOGLOBIN A1C - POINT OF CARE (HgbA1C) (08/12/2024) Only the most recent of21 resultswithin the time period is included. Hemoglobin A1c POCT 7.2 % Expiration Date 01/23/2026 Lot # [id number] QC Verified Yes Yes Blood BLOOD SPECIMEN / Unknown 08/12/2024 Luana Mendez MD LAB - POINT OF C ARE ORDERABLES * (ABNORMAL) TESTOSTERONE BIOAVAILABLE (04/28/2023 8:15 AM CDT) Only the most recent of3 resultswithin the time period is included. Testosterone 869 ng/dL [facility] ACCOUNT BILL Comment: This test was developed and its performance characteristics determined by [facility]. It has not been cleared or approved by the Food and Drug Administration. Reference Range: Adult Males >18 years 264 - 916 This [facility] LC/MS-MS method is currently certified by the CDC Hormone Standardization Program (HoST). Adult male reference interval is based on a population of healthy nonobese males (BMI <30) between 19 and 39 years old. Charissa et.al. JCEM 2017,102;6664-2427 PMID: [id number]. Testosterone Bioavailable 460(H) ng/dL [facility] ACCOUNT BILL Comment: Reference Range: Males (50 - 69y): 95 - 285 Testosterone Bioavailable 52.9 % [facility] ACCOUNT BILL Comment:FASTING Blood BLOOD SPECIMEN / Unknown 04/28/2023 8:15 AM CDT 04/28/2023 Narrative Resulting Agency Comment Lab Testing performed at: [facility] [address] [place] [id number] Luana Mendez MD LAB - CHEMISTRY ORDERABLES [facility] ACCOUNT BILL [address] [place] [address] * HEPATIC FUNCTION PANEL (10/28/2022 11:51 AM COLLECTOR OF AQUARIUM SPECIMENS) Protein Total 6.9 6.0 - 8.5 g/dL [facility] ACCOUNT BILL Albumin 4.3 3.8 - 4.9 g/dL [facility] ACCOUNT BILL Bilirubin Total 0.8 0.0 - 1.2 mg/dL [facility] ACCOUNT BILL Bilirubin Direct 0.17 0.00 - 0.40 mg/dL [facility] ACCOUNT BILL Alkaline Phosphatase 98 44 - 121 IU/L [facility] ACCOUNT BILL AST 20 0 - 40 IU/L [facility] ACCOUNT BILL ALT 23 0 - 44 IU/L [facility] ACCOUNT BILL Comment:FASTING Blood BLOOD SPECIMEN / Unknown 10/28/2022 11:51 AM COLLECTOR OF AQUARIUM SPECIMENS 10/28/2022 Narrative Resulting Agency Comment Lab Testing performed at: [facility] [place] [address] [facility] [id number] Luana Mendez MD LAB - CHEMISTRY ORDERABLES Performing Organization Address [facility] de Phone Number [facility] ACCOUNT BILL [address] [place] [address] * (ABNORMAL) HEMOGLOBIN A1C W EAG (10/28/2022 11:50 AM COLLECTOR OF AQUARIUM SPECIMENS) Only the most recent of3 resultswithin the time period is included. Hemoglobin A1c 7.3(H) 4.8 - 5.6 % [facility] ACCOUNT BILL Comment: . Prediabetes: 5.7 - 6.4 Diabetes: >6.4 Glycemic control for adults with diabetes: <7.0 Estimated Average Glucose 163 mg/dL [facility] ACCOUNT BILL Comment:FASTING Blood BLOOD SPECIMEN / Unknown 10/28/2022 11:50 AM COLLECTOR OF AQUARIUM SPECIMENS 10/28/2022 Narrative Resulting Agency Comment Lab Testing performed at: [facility] [place] [employer] [facility] [id number] Luana Mendez MD LAB - CHEMISTRY ORDERABLES Performing Organization Address [facility] Phone Number [facility] ACCOUNT BILL [address] [place] [address] * VITAMIN B12 FOLATE PANEL (10/07/2022 11:41 AM COLLECTOR OF AQUARIUM SPECIMENS) Only the most recent of3 resultswithin the time period is included. Vitamin B12 742 232 - 1,245 pg/mL [facility] ACCOUNT BILL Folate 18.7 >3.0 ng/mL [facility] ACCOUNT BILL Comment: A serum folate concentration of less than 3.1 ng/mL is considered to represent clinical deficiency. Blood BLOOD SPECIMEN / Unknown 10/07/2022 11:41 AM COLLECTOR OF AQUARIUM SPECIMENS 10/07/2022 Narrative Resulting Agency Comment Lab Testing performed at: [facility] [place] [employer] [facility] [id number] Luana Mendez MD LAB - CHEMISTRY ORDERABLES Performing Organization Address [facility]/State/ZIP Co de Phone Number [facility] ACCOUNT BILL [address] [place] [address] * (ABNORMAL) HEMOGLOBIN A1C (07/17/2022 10:59 AM COLLECTOR OF AQUARIUM SPECIMENS) Only the most recent of12 resultswithin the time period is included. Hemoglobin A1c 7.3(H) 4.8 - 5.6 % [facility] ACCOUNT BILL Comment: . Prediabetes: 5.7 - 6.4 Diabetes: >6.4 Glycemic control for adults with diabetes: <7.0 FASTING Blood BLOOD SPECIMEN / Unknown 07/17/2022 10:59 AM COLLECTOR OF AQUARIUM SPECIMENS 07/17/2022 Narrative Resulting Agency Comment Lab Testing performed at: [facility] [address] [facility] [id number] Luana Mendez MD LAB - CHEMISTRY ORDERABLES [facility] ACCOUNT BILL [address] [place] [address] * VITAMIN D 25-HYDROXY (07/17/2022 10:59 AM COLLECTOR OF AQUARIUM SPECIMENS) Only the most recent of6 resultswithin the time period is included. Vitamin D, 25 Hydroxy 45.4 30.0 - 100.0 ng/mL [facility] ACCOUNT BILL Comment: Vitamin D deficiency has been defined by the [place] of [employer] and an Endocrine Society practice guideline as a level of serum 25-OH vitamin D less than 20 ng/mL (1,2). The Endocrine Society went on to further define vitamin D insufficiency as a level between 21 and 29 ng/mL (2). 1. IOM ([place] of Medicine). 2010. Dietary reference intakes for calcium and D. [place]: The National Academies Press. 2. Gene MF, Doreen NC, Lia GALLEGOS, et al. Evaluation, treatment, and prevention of vitamin D deficiency: an Endocrine Society clinical practice guideline. JCEM. 2010; 96(7):1911-30. FASTING Blood BLOOD SPECIMEN / Unknown 07/17/2022 10:59 AM COLLECTOR OF AQUARIUM SPECIMENS 07/17/2022 Narrative Resulting Agency Comment Lab Testing performed at: [facility] [place] [address] [facility] [id number] Luana Mendez MD LAB - CHEMISTRY ORDERABLES Performing Organization Address [facility] de Phone Number [facility] ACCOUNT BILL [address] [place] [address] * TSH (04/04/2022 10:17 AM CDT) Only the most recent of4 resultswithin the time period is included. [facility] TSH 0.8587 0.35 - 4.94 uIU/mL [facility] ACCOUNT BILL Comment:FASTING Blood BLOOD SPECIMEN / Unknown 04/04/2022 10:17 AM CDT 04/04/2022 Narrative Resulting Agency Comment Lab Testing performed at: [address] Arely PELAEZ [id number] Luana Mendez MD LAB - CHEMISTRY ORDERABLES Performing Organization Address [facility] de Phone Number [facility] ACCOUNT BILL [address] [place] [address] * T4 FREE (04/04/2022 10:17 AM CDT) Only the most recent of2 resultswithin the time period is included. [facility] T4 Free 1.14 0.70 - 1.48 ng/dL [facility] ACCOUNT BILL Comment:FASTING Blood BLOOD SPECIMEN / Unknown 04/04/2022 10:17 AM CDT 04/04/2022 Narrative Resulting Agency Comment Lab Testing performed at: [address] Arely PELAEZ [id number] Luana Mendez MD LAB - CHEMISTRY ORDERABLES Performing Organization Address City/[facility] de Phone Number [facility] ACCOUNT BILL [address] [place] [address] * T3 TOTAL (04/04/2022 10:17 AM CDT) [facility] T3 Total 1.25 0.35 - 1.93 ng/mL [facility] ACCOUNT BILL Comment: FASTING Blood BLOOD SPECIMEN / Unknown 04/04/2022 10:17 AM CDT 04/04/2022 Narrative Resulting Agency Comment Lab Testing performed at: [facility] [address] [facility] [phone] Luana Mendez MD LAB - CHEMISTRY ORDERABLES Performing Organization Address City/[facility]/ZIP Co de Phone Number [facility] ACCOUNT BILL [address] [place] [address] * (ABNORMAL) C-PEPTIDE (10/06/2019 10:51 AM COLLECTOR OF AQUARIUM SPECIMENS) C-Peptide <0.1(L) 1.1 - 4.4 ng/mL [facility] ACCOUNT BILL Comment: C-Peptide reference interval is for fasting patients. FASTING Blood BLOOD SPECIMEN / Unknown 10/06/2019 10:51 AM COLLECTOR OF AQUARIUM SPECIMENS 10/06/2019 Narrative Resulting Agency Comment [facility] [address] [facility] [id number] Natasha Peraza TOOTH GRINDER-ELIGIBILITY EXAMINER LAB - CHEMI STRY ORDERABLES Performing Organization Address [facility] Co de Phone Number [facility] ACCOUNT BILL [address] [place] [address] * DIABETES EYE EXAM (09/13/2018) Only the most recent of4 resultswithin the time period is included. Historical Provider MD ANTON Manuel * (ABNORMAL) BASIC METABOLIC PANEL (CALCIUM TOTAL) (04/01/2016 9:18 AM CDT) Glucose 247(H) 65 - 99 mg/dL [facility] INSURANCE BILL BUN 17 6 - 24 mg/dL [facility] INSURANCE BILL Creatinine 0.93 0.76 - 1.27 mg/dL [facility] INSURANCE BILL eGFR by MDRD 96 >59 mL/min/1.7 3 [facility] INSURANCE BILL eGFR by MDRD 111 >59 mL/min/1.7 3 [facility] INSURANCE BILL BUN/Creatinine Ratio 18 9 - 20 [facility] INSURANCE BILL Sodium 138 134 - 144 mmol/L [facility]ANCE BILL Potassium 4.7 3.5 - 5.2 mmol/L [facility] INSURANCE BILL Chloride 98 97 - 108 mmol/L [facility] INSURANCE BILL CO2 23 18 - 29 mmol/L [facility] INSURANCE BILL Calcium 9.3 8.7 - 10.2 mg/dL [facility] INSURANCE BILL Blood specimen (specimen) BLOOD SPECIMEN / Unknown 04/01/2016 9:18 AM CDT 04/01/2016 1:44 PM CDT Narrative Resulting Agency Comment [facility] [address] [facility] [phone] Natasha Peraza TOOTH GRINDER-ELIGIBILITY EXAMINER LAB - CHEMI STRY ORDERABLES [facility] INSURANCE BILL [address] [place] [address] * (ABNORMAL) GLUCOSE - POINT OF CARE (08/11/2015) Only the most recent of7 resultswithin the time period is included. Glucose 214(A) 60 - 100 mg/dL Blood specimen (specimen) BLOOD SPECIMEN / Unknown 08/11/2015 Luana Mendez MD LAB - POINT OF C ARE ORDERABLES * EMG WITH NERVE CONDUCTION STUDY (05/26/2015) Randa Davis DPSlime NEUROLOGY ORDERABLES Performing Organization Address City/[facility]/ZIP Co de Phone Number [facility] RESULT SCAN * XR FOOT BILAT MIN 3 VIEWS (04/29/2015 12:33 PM CDT) Anatomical Region Laterality Modality Ankle / Foot, Lower Extremity Ra diographic Imaging 04/29/2015 1:21 PM CDT Narrative 04/29/2015 1:46 PM CDT Three Views Right Foot Three Views Left Foot Indication: Bilateral foot pain. Findings: Three views of the right foot show no displaced fracture or dislocation. There is no osseous destruction. Significant hypertrophic or erosive degenerative changes are not identified. There is mild pes planus. Three views of the left foot show no displaced fracture or dislocation. There is no osseous destruction. Significant hypertrophic or erosive degenerative changes are not identified. There is mild pes planus. Edited by Louann Valladares on 04/29/2015 1:40 PM Procedure Note Nicola Ramirez MD - 04/29/2015 Three Views Right Foot Three Views Left Foot Indication: Bilateral foot pain. Findings: Three views of the right foot show no displaced fracture or dislocation. There is no osseous destruction. Significant hypertrophic or erosive degenerative changes are not identified. There is mild pes planus. Three views of the left foot show no displaced fracture or dislocation. There is no osseous destruction. Significant hypertrophic or erosive degenerative changes are not identified. There is mild pes planus. Edited by Louann Valladares on 04/29/2015 1:40 PM Randa Davis DPM DIAGNOSTIC IMAGING O RDERABLES * PATHOLOGY TISSUE FOR DERMATOLOGY (04/23/2014 12:00 AM CDT) Result CASE: [id number] PATIENT: MODESTO MOROCHO PATHOLOGIC DIAGNOSIS: A. Right neck: INTRADERMAL MELANOCYTIC NEVUS PRESENT AT MARGIN B. Right shoulder: NEUROFIBROMA PRESENT AT MARGIN CLINICAL DATA: A-B: Changing lesion. Check margins on A-B. GROSS DESCRIPTION: A: Received is one formalin filled container labeled with the patient's name and designated neck. The specimen consists of a shave biopsy measuring 5x5x2 mm. Jar 0. B: Received is one formalin filled container labeled with the patient's name and designated shoulder. The specimen consists of a shave biopsy measuring 5x4x2 mm. Jar 0. MICROSCOPIC DESCRIPTION: SPECIMEN A: There are nests of melanocytes within the dermis that mature with depth. Lesion is present at the margin of the specimen. SPECIMEN B: Sections show a proliferation of spindled and s-shaped cells within the dermis. The stromal collagen is delicate and pale. Lesion is present at the margin of the specimen. Electronically signed out by Trinidad Das M.D. 04/29/2014 3:39:25PM [facility] Comment: Performed at: Dermatopathology Laboratory [facility] - Department of Dermatology [address] [place] [address], 5th [place] [address] Phone number: [phone] FAX: [phone] 04/23/2014 04/28/2014 Sarath Edgar MD LAB - PATHOLOGY/CYTO LOGY ORDERABLES [facility] [address]. 5th [place] [address], [facility] [phone] * LAB RESULTS ORDER (09/16/2012) Sarath Edgar MD LAB - THERAPEUTIC DR COSTA MONITORING ORDERABLES Care Teams Construction Pit Worker Relationship Specialty Start Date End Date Sarath Edgar MD [address] [place] [phone] PCP - General 03/18/12 [place] [address] [facility] [address] [place] [address] Endocrinology 04/05/15 [place] [address] [facility] [address] [place] [id number] Ophthalmology 06/21/16 Randa Davis DPM [address] [facility] [address] [place] [address] Podiatry 06/21/16
--- OUTSIDE RECORDS SUMMARY | 2024-10-16 17:02 | XMS_ITS | Clinical Summary ---
Author Organization [facility] Address [address] [place] [address] Care Team Providers Care Pattern Clerk Name Role Phone Sarath Edgar MD Primary [...] rhinitis 01/17/2014 Overview (12/07/2016): ALLERGIC RHINITIS NOS Surgical History Surgery Date Site/Laterality Comments DENTAL SURGERY 09/03/1990 - 09/02/1991 [place] [facility] SHOULDER ARTHROSCOPY W/ SUPERIOR LABRAL ANTERIOR POSTERIOR LESION REPAIR 09/03/2004 - 09/02/2005 Left Shoulder SLAP Tear Medical History Medical History Date Comments Type 2 diabetes mellitus (HCC) Low back pain Family History Medical History Relation Name Comments Diabetes Daughter Diabetes type I Daughter Diabetes -Ty pe I; Diabetes Father Cancer Maternal Grandfather Relation Name Status Comments Daughter Father Maternal Grandfather Social History Tobacco Use Types Packs/Day Years Used Date Smoking Tobacco: Former Cigarettes 2012 Alcohol Use Standard Drinks/Week Comments No [...] on file 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 Minimize further functional decline 2. Maximize quality of life 3. Control pain Strategies: - Activity/exercise program recommendation - Conservative stepwise pain medicine strategy with multi-disciplinary approach - Recommend healthy lifestyle strategies and compensatory methods as needed Reduce the likelihood of falling Lifestyle No Constance Garrido, MICHAELA Note: Below are four things you can [...] on stairs Contact your local community or [facility] center for information on exercise, fall prevention programs, or options for improving home safety. Insurance [facility] CHOICE OOS Global Support Address: [address] [place] [address] [facility] [employer] CHOICE Global Support Address: [address] [place] [address] [place] [address] [facility] ACCESS CHOICE Care Teams Pattern Clerk Relationship Specialty Start Date End Date Sarath Edgar MD PCP - General 11/07/07
--- NOTE | 2024-10-16 17:08 | ED_ITS ---
HPI - General Adult General Chief complaint: Back Pain/Injury <Eleni Bennett January, - Last Filed: 10/16/24 17:12> Stated complaint: mid-back pain since 0700, no chest pain <Eleni Bennett January, - Last Filed: 10/16/24 17:12> Time Seen by Provider: 10/16/24 17:09 <Eleni Bennett January, - Last Filed: 10/16/24 17:12> Focused HPI: Modesto Zheng is a 59 y/o male PMX of DM type 1 who presents with complaints of severe upper mid back pain that started at 0700 today. He states intermittent chest pain/ no SOB/ no abdominal pain/ no nausea/vomiting. He denies hx of HTN - reports mild Uri symptoms for a few days GENERAL: in no acute distress. HEAD: Normocephalic, atraumatic. CHEST: Clear to auscultation. ?No respiratory distress. HEART: Regular rate and rhythm.? NEURO: ?Alert and oriented x3. Patient screened in triage and initial orders placed.? ?Additional care and disposition to be based upon?diagnostic testing and treatment. <Eleni Bennett January, - Last Filed: 10/16/24 17:12> History of Present Illness HPI narrative: Agree with HPI <Isma Ortiz MD - Last Filed: 10/16/24 20:12> Related Data Home medications: Home Medications ?Medication ?Instructions ?Recorded ?Confirmed ?Last Taken ?Type insulin lispro-aabc 100 unit/mL 1 sliding scale dose subcut 10/18/21 10/16/24 Unknown History subcutaneous solution (Lyumjev USEASDIRECTD U-100 Insulin) <Eleni Bennett January, - Last Filed: 10/16/24 17:12> Allergies/adverse reactions: Allergies Allergy/AdvReac Type Severity Reaction Status Date / Time No Known Allergies Allergy Unknown Verified 10/16/24 14:33 <Eleni Bennett January, - Last Filed: 10/16/24 17:12> Review of Systems 2 Review of Systems: All systems reviewed & are unremarkable except as noted in HPI and below <Isma Ortiz MD - Last Filed: 10/16/24 20:12> Constitutional: Constitutional: Reports no additional constitutional complaints <Isma Ortiz MD - Last Filed: 10/16/24 20:12> Cardiovascular: Cardiovascular: Reports no additional cardiovascular complaints <Isma Ortiz MD - Last Filed: 10/16/24 20:12> Respiratory: Respiratory: Reports no additional respiratory complaints < Isma Ortiz MD - Last Filed: 10/16/24 20:12> Gastrointestinal: Gastrointestinal: Reports no additional gastrointestinal complaints <Isma Ortiz MD - Last Filed: 10/16/24 20:12> Musculoskeletal: Musculoskeletal: Reports back pain, Denies arthralgias, Denies joint swelling and Reports muscle cramps <Isma Ortiz MD - Last Filed: 10/16/24 20:12> PMFSH Past Medical History Medical History: Medical History Dyspnea Tachycardia Leg edema Right wrist pain Left lateral epicondylitis Screen for colon cancer Screening for prostate cancer Chest wall pain Erectile dysfunction Scratch Low vitamin D level BMI greater than 40 Abnormal MRI, lumbar spine Foot pain, bilateral Vertigo Umbilical hernia BMI 40.0-44.9, adult Obesity Diabetes <Eleni Bennett January, TACKING MACHINE OPERATOR - Last Filed: 10/16/24 17:12> Family History Family History: Family History Grandparent Malignant neoplasm of prostate Father COVID-19 Diabetes mellitus Mother COVID-19 Sibling COVID-19 Diabetes mellitus <Eleni Bennett January, TACKING MACHINE OPERATOR - Last Filed: 10/16/24 17:12> Social History Social History: Social History Smoking status: Former smoker Tobacco type: cigarettes Second hand tobacco smoke exposure: No Smoking end date: 03/02/12 Alcohol intake: current Substance use: never Substance use type: does not use Do You Feel Safe in your Home?: Yes Lack of Transportation: No Lack of Food: Never True Current Housing: I Have Housing Concerned About Future Housing: No Difficulty Paying Gas/Electric Bills: No Difficulty Paying for Meds: No Currently Unemployed: No Education: High School Diploma/GED Difficulty w/ Childcare or Family Care: No Living arrangements: alone Occupation/Education: occupation 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 Gender identity (if verbalized by the patient): Male <Eleni Mckinnon, TACKING MACHINE OPERATOR - Last Filed: 10/16/24 17:12> Exam 2 Narrative: GENERAL: Well-appearing, well-nourished, and in no acute distress. HEAD: Normocephalic, atraumatic. ENT: Mucous membranes moist. CHEST: Clear to auscultation. No respiratory distress. HEART: Regular rate and rhythm. Normal peripheral pulses. Back: No midline tenderness the T/L-spine. There is tenderness of the paraspinal musculature on the left side of thoracic spine extending into the inferior aspect of the scapula. This reproduces patient's pain. EXTREMITIES: Normal range of motion. No edema. SKIN: Warm, dry, no rash. NEURO: Alert and oriented x3. PSYCH: Normal mood and affect. <Isma Ortiz MD - Last Filed: 10/16/24 20:12> Course Course Emergency Course: Lab work reassuring. Not felt patient is having VA. CTA negative for PE/dissection. IV fluids here with Toradol. Discharged with Valium for spasm as he already has Flexeril and also scheduled anti-inflammatories. <Isma Ortiz MD - Last Filed: 10/16/24 20:12> Vital Signs Vital signs: Vital Signs Temperature 97.3 F L 10/16/24 17:01 Pulse Rate 97 10/16/24 17:01 Respiratory Rate 16 10/16/24 17:01 Blood Pressure 170/87 H 10/16/24 17:01 Pulse Oximetry 98 10/16/24 17:01 Oxygen Delivery Room Air 10/16/24 17:01 Temperature 97.3 F L 10/16/24 17:01 Pulse Rate 97 10/16/24 17:01 Respiratory Rate 16 10/16/24 17:01 Blood Pressure 170/87 H 10/16/24 17:01 Pulse Oximetry 98 10/16/24 17:01 Oxygen Delivery Room Air 10/16/24 17:01 <Eleni Mckinnon, TACKING MACHINE OPERATOR - Last Filed: 10/16/24 17:12> Vital Signs Temperature 97.3 F L 10/16/24 17:01 Pulse Rate 97 10/16/24 17:01 Respiratory Rate 16 10/16/24 17:01 Blood Pressure 170/87 H 10/16/24 17:01 Pulse Oximetry 98 10/16/24 17:01 Oxygen Delivery Room Air 10/16/24 17:01 Temperature 97.3 F L 10/16/24 17:01 Pulse Rate 97 10/16/24 17:01 Respiratory Rate 16 10/16/24 17:01 Blood Pressure 170/87 H 10/16/24 17:01 Pulse Oximetry 98 10/16/24 17:01 Oxygen Delivery Room Air 10/16/24 17:01 <Isma Ortiz MD - Last Filed: 10/16/24 20:12> Medical Decision Making Vital Signs Vital Signs: Vital Signs Temperature 97.3 F L 10/16/24 17:01 Pulse Rate 97 10/16/24 17:01 Respiratory Rate 16 10/16/24 17:01 Blood Pressure 170/87 H 10/16/24 17:01 Pulse Oximetry 98 10/16/24 17:01 Oxygen Delivery Room Air 10/16/24 17:01 Temperature 97.3 F L 10/16/24 17:01 Pulse Rate 97 10/16/24 17:01 Respiratory Rate 16 10/16/24 17:01 Blood Pressure 170/87 H 10/16/24 17:01 Pulse Oximetry 98 10/16/24 17:01 Oxygen Delivery Room Air 10/16/24 17:01 <Eleni Mckinnon APRN - Last Filed: 10/16/24 17:12> Vital Signs Temperature 97.3 F L 10/16/24 17:01 Pulse Rate 97 10/16/24 17:01 Respiratory Rate 16 10/16/24 17:01 Blood Pressure 170/87 H 10/16/24 17:01 Pulse Oximetry 98 10/16/24 17:01 Oxygen Delivery Room Air 10/16/24 17:01 Temperature 97.3 F L 10/16/24 17:01 Pulse Rate 97 10/16/24 17:01 Respiratory Rate 16 10/16/24 17:01 Blood Pressure 170/87 H 10/16/24 17:01 Pulse Oximetry 98 10/16/24 17:01 Oxygen Delivery Room Air 10/16/24 17:01 <Isma Ortiz MD - Last Filed: 10/16/24 20:12> Lab Data Result diagrams: 10/16/24 17:21 10/16/24 17:21 <Eleni Mckinnon, TACKING MACHINE OPERATOR - Last Filed: 10/16/24 17:12> Labs: Lab Results 10/16/24 Range/Units 17:21 WBC 7.9 (4.5-10.0) K/mm3 RBC 5.01 (4.6-6.20) M/mm3 Hgb 15.4 (14.0-18.0) g/dL Hct 44.8 (42.0-52.0) % MCV 89.4 (80-100) fl MCH 30.7 (26-34) pg MCHC 34.4 (32-36) g/dl RDW 12.4 (11.5-14.5) % Plt Count 241 (150-375) k/mm3 MPV 9.6 (7.4-10.4) fl Immature Gran % (Auto) 0.1 (0-0.5) % Neut % (Auto) 71.9 (45.5-73.1) % Lymph % (Auto) 16.9 L (18.3-44.2) % [place] % (Auto) 7.1 (2.6-8.5) % Eos % (Auto) 3.2 (0-4.4) % Baso % (Auto) 0.8 (0.2-1.2) % Lymph # (Auto) 1.33 (0.9-3.2) K/mm3 [place] # (Auto) 0.6 (0.1-0.6) K/mm3 Eos # (Auto) 0.3 (0-0.3) K/mm3 Baso # (Auto) 0.1 (0.0-0.1) K/mm3 Abs Immat Gran (auto) 0.01 (0.00-0.031) K/mm3 Absolute Neuts (auto) 5.7 (1.3-6.7) K/mm3 Absolute Nucleated RBC 0.000 (0.0-0.012) K/mm3 Nucleated RBC % 0.0 (0.0-0.2) % PT 12.8 (11.1-14.7) Seconds INR 0.9 APTT 27.8 (22.3-36.8) Seconds Sodium 137 (137-145) mmol/L Potassium 4.3 (3.4-5.0) mmol/L Chloride 102 (98-107) mmol/L Carbon Dioxide 26 (22-30) mmol/L Anion Gap 9 (4-12) mmol/L BUN 22 H (9-20) mg/dL Creatinine 1.02 (0.7-1.3) mg/dL Estim Creat Clear Calc 98 ml/min Estimated GFR > 60 (59 - ) Glucose 238 H (65-110) mg/dL Calcium 9.3 (8.4-10.2) mg/dL Total Bilirubin 0.6 (0.2-1.3) mg/dL AST 32 (17-59) U/L ALT 49 (6-50) U/L Alkaline Phosphatase 135 H (38-126) U/L Troponin I < 0.012 (0.000-0.034) ng/mL Total Protein 7.0 (6.3-8.2) g/dL Albumin 4.1 (3.5-5.1) g/dL Lipase 67 (23-300) U/L <Eleni Mckinnon, TACKING MACHINE OPERATOR - Last Filed: 10/16/24 17:12> Lab Results 10/16/24 Range/Units 17:21 WBC 7.9 (4.5-10.0) K/mm3 RBC 5.01 (4.6-6.20) M/mm3 Hgb 15.4 (14.0-18.0) g/dL Hct 44.8 (42.0-52.0) % MCV 89.4 (80-100) fl MCH 30.7 (26-34) pg MCHC 34.4 (32-36) g/dl RDW 12.4 (11.5-14.5) % Plt Count 241 (150-375) k/mm3 MPV 9.6 (7.4-10.4) fl Immature Gran % (Auto) 0.1 (0-0.5) % Neut % (Auto) 71.9 (45.5-73.1) % Lymph % (Auto) 16.9 L (18.3-44.2) % [place] % (Auto) 7.1 (2.6-8.5) % Eos % (Auto) 3.2 (0-4.4) % Baso % (Auto) 0.8 (0.2-1.2) % Lymph # (Auto) 1.33 (0.9-3.2) K/mm3 [place] # (Auto) 0.6 (0.1-0.6) K/mm3 Eos # (Auto) 0.3 (0-0.3) K/mm3 Baso # (Auto) 0.1 (0.0-0.1) K/mm3 Abs Immat Gran (auto) 0.01 (0.00-0.031) K/mm3 Absolute Neuts (auto) 5.7 (1.3-6.7) K/mm3 Absolute Nucleated RBC 0.000 (0.0-0.012) K/mm3 Nucleated RBC % 0.0 (0.0-0.2) % PT 12.8 (11.1-14.7) Seconds INR 0.9 APTT 27.8 (22.3-36.8) Seconds Sodium 137 (137-145) mmol/L Potassium 4.3 (3.4-5.0) mmol/L Chloride 102 (98-107) mmol/L Carbon Dioxide 26 (22-30) mmol/L Anion Gap 9 (4-12) mmol/L BUN 22 H (9-20) mg/dL Creatinine 1.02 (0.7-1.3) mg/dL Estim Creat Clear Calc 98 ml/min Estimated GFR > 60 (59 - ) Glucose 238 H (65-110) mg/dL Calcium 9.3 (8.4-10.2) mg/dL Total Bilirubin 0.6 (0.2-1.3) mg/dL AST 32 (17-59) U/L ALT 49 (6-50) U/L Alkaline Phosphatase 135 H (38-126) U/L Troponin I < 0.012 (0.000-0.034) ng/mL Total Protein 7.0 (6.3-8.2) g/dL Albumin 4.1 (3.5-5.1) g/dL Lipase 67 (23-300) U/L <Isma Ortiz MD - Last Filed: 10/16/24 20:12> Imaging Data Radiologist's impression: ITS Impressions Chest CTA 10/16/24 19:00 IMPRESSION: No pulmonary embolus. No thoracic aortic dissection. The lungs are clear. <Isma Ortiz MD - Last Filed: 10/16/24 20:12> Discharge Plan Discharge Clinical Impression: Muscle spasm of back <Eleni TammieNorth January,N - Last Filed: 10/16/24 17:12> Patient Disposition: Home, Self-Care <Eleni TammieNorth January, TACKING MACHINE OPERATOR - Last Filed: 10/16/24 17:12> Condition: Stable <Eleni TammieNorth January,N - Last Filed: 10/16/24 17:12> Instructions: Back Pain (ED) <Eleni Bennett January, TACKING MACHINE OPERATOR - Last Filed: 10/16/24 17:12> Additional Instructions: Please return to the emergency department if you develop severe pain that is not controlled by pain medications or if you are unable to walk because of pain or weakness. Return to the emergency department immediately if you develop fevers, loss of bowel or bladder control (dribbling of urine or having accidents you wouldn't normally have), inability to urinate, numbness of your genital or anal area, or weakness/numbness of your legs or arms as these could all be signs of a serious medical emergency. <Eleni Bennett January,N - Last Filed: 10/16/24 17:12> Patient Language: Sinhala <Eleni Bennett January,N - Last Filed: 10/16/24 17:12> Prescriptions: New naproxen 375 mg tablet 375 mg PO BID Qty: 14 0RF diazepam [Valium] 2 mg tablet 2 mg PO BID PRN (Reason: muscle spasm) Qty: 7 0RF No Action cetirizine-pseudoephedrine [Zyrtec-D] 5-120 mg tablet extended release 12 hr 1 tablet PO BID Qty: 60 2RF Lyumjev U-100 Insulin 100 unit/mL solution 1 sliding scale dose subcut USEASDIRECTD <Eleni Bennett January, TACKING MACHINE OPERATOR - Last Filed: 10/16/24 17:12> Follow-up/Referrals: Sarath Edgar MD [Primary Care Provider] - 1 Week <Eleni Bennett January, TACKING MACHINE OPERATOR - Last Filed: 10/16/24 17:12>
[2024-10-16 17:28] LABS: Basophils Absolute Auto 0.1 K/mm3 (0.0-0.1); Basophils Percent Auto 0.8 % (0.2-1.2); Eosinophils Absolute Auto 0.3 K/mm3 (0-0.3); Eosinophils Percent Auto 3.2 % (0-4.4); Hematocrit 44.8 % (42.0-52.0); Hemoglobin 15.4 g/dL (14.0-18.0); Immature Granulocyte Absolute 0.01 K/mm3 (0.00-0.031); Immature Granulocyte Percent A 0.1 % (0-0.5); Lymphocytes Absolute Auto 1.33 K/mm3 (0.9-3.2); Lymphocytes Percent Auto 16.9 % (18.3-44.2); Mean Corpuscular HGB Conc 34.4 g/dl (32-36); Mean Corpuscular Hemoglobin 30.7 pg (26-34); Mean Corpuscular Volume 89.4 fl (80-100); Mean Platelet Volume 9.6 fl (7.4-10.4); Monocytes Absolute Auto 0.6 K/mm3 (0.1-0.6); Monocytes Percent Auto 7.1 % (2.6-8.5); Neutrophils Absolute Auto 5.7 K/mm3 (1.3-6.7); Neutrophils Percent Auto 71.9 % (45.5-73.1); Platelet Count Result 241 k/mm3 (150-375); Red Blood Count 5.01 M/mm3 (4.6-6.20); Red Cell Distribution Width 12.4 % (11.5-14.5); White Blood Count 7.9 K/mm3 (4.5-10.0)
[2024-10-16 17:42] LABS: Alanine Aminotransferase 49 U/L (6-50); Albumin Level 4.1 g/dL (3.5-5.1); Alkaline Phosphatase 135 U/L (38-126); Anion Gap 9 mmol/L (4-12); Aspartate Amino Transferase 32 U/L (17-59); Bilirubin,Total 0.6 mg/dL (0.2-1.3); Blood Urea Nitrogen 22 mg/dL (9-20); Calcium 9.3 mg/dL (8.4-10.2); Carbon Dioxide 26 mmol/L (22-30); Chloride 102 mmol/L (98-107); Estimated CRCL calculation 98 ml/min; Estimated Glomerular Filt Rate > 60; Glucose 238 mg/dL (65-110); Lipase 67 U/L (23-300); Potassium 4.3 mmol/L (3.4-5.0); Sodium 137 mmol/L (137-145)
[2024-10-16 17:46] LABS: INR 0.9; Prothrombin Time 12.8 Seconds (11.1-14.7)
[2024-10-16 17:47] LABS: Partial Thromboplastin Time 27.8 Seconds (22.3-36.8)
[2024-10-16 17:53] LABS: Troponin I < 0.012 ng/mL (0.000-0.034)
--- OUTSIDE RECORDS SUMMARY | 2024-10-16 19:39 | XMS_ITS | Encounter Summary ---
Author Organization [facility] Address [address] [facility] [place] [address] Care Team Providers Care Wire Stretcher Name Role Phone Sarath Edgar MD Primary Care Provider [phone] Jorge Olivia DO Unavailable Luana Mendez MD Unavailable [phone] Eun Duarte MD Unavailable [phone] Randa Davis DPSlime Unavailable [phone] Encounter Details Date Type Department Care Team (Late st Contact Info) Description 07/22/2013 [facility] Outpatient Visit [facility] - Endocrinology [address] [address] [place] [address] [address] Social History Tobacco Use Types [...] Description 12/15/2024 3:00 PM CDT Office Visit [facility] - Endocrinology [address] [place] [phone] Luana Mendez MD [address] [place] [address] 03/16/2025 3:00 PM CDT Office Visit [facility] - Endocrinology [address] [place] [phone] Luana Mendez MD [address] [place] [address] documented as of this encounter Visit Diagnoses Not on filedocumented in this encounter Care Teams Wire Stretcher Relationship Specialty Start Date End Date Sarath Edgar MD [address] [place] [address] PCP - General 03/18/12 Jorge Olivia DO [address] [place] [address] Orthopedic Surgery 12/03/12 06/20/16 Luana Mendez [place] [id number] [place] [address] Endocrinology 04/05/15 [place] [address] [facility] [address] [place] [phone] Ophthalmology 06/21/16 Randa Davis DPM [id number] [place] [address] [address] [place] [address] Podiatry 06/21/16 documented as of this encounter
--- OUTSIDE RECORDS SUMMARY | 2024-10-16 19:39 | XMS_ITS | Encounter Summary ---
Author Organization [facility] Address [address] [place] [address] Care Team Providers Care Guard Dance Hall Name Role Phone Sarath Edgar MD Primary Care Provider [phone] Jorge Olivia DO Unavailable [phone] Luana Mendez MD Unavailable [phone] Eun Duarte MD Unavailable [phone] Randa Davis DPSlime Unavailable [phone] Encounter Details Date Type Department Care Team (Late Contact Info) Description 10/08/2015 [facility] Outpatient Visit [facility] [address] [place] [address] Luana Mendez MD [address] [place] [address] Social History Tobacco Use Types Packs/Day [...] 12/15/2024 3:00 PM CDT Office Visit [facility] - Endocrinology [phone] [place] [address], [address] [place] [phone] [place] [address] [facility] [address] [place] [address] 03/16/2025 3:00 PM CDT Office Visit [facility] - Endocrinology [phone] [place] [address], [address] [phone] [place] [address] [address] documented as of this encounter Visit Diagnoses Not on filedocumented in this encounter Care Teams Guard Dance Hall Relationship Specialty Start Date End Date Sartah Edgar MD [address] [place] [phone] PCP - General 03/18/12 Jorge Olivia DO [address] [place] [phone] Orthopedic Surgery 12/03/12 06/20/16 [place] [address] [address] Endocrinology 04/05/15 [place] [address] [phone] Ophthalmology 06/21/16 Randa Davis DPM [address] [facility] [address] [place] [address] [address] Podiatry 06/21/16 documented as of this encounter
--- OUTSIDE RECORDS SUMMARY | 2024-10-16 19:39 | XMS_ITS | Clinical Summary ---
Author Organization [facility] Address [address] [place] [address] Care Team Providers Care Sound Effects Person Name Role Phone Sarath Edgar MD Primary Care Provider [phone] Luana Mendez MD Unavailable [phone] Eun Duarte MD Unavailable [phone] Randa Davis DPM Unavailable Source Comments [facility],non-owned Affiliates and Associated Physician Practices is amultiple site organization consisting of ambulatory clinics and hospital sitesin [place], [place] and [place]. This disclosure is being madepursuant to the Care Everywhere program and may not contain all information available regarding this patient. Last updated 18.[facility] Allergies Active Allergy Reactions Criticality Noted [...] fluticasone propionate (FLONASE) 50 MCG/ACT nasal spray [place] 2 Sprays into each nostril once daily [...] route once daily as needed Replacing Humalog: [id number] unit delivered via insulin pump 120 mL [...] route once daily as needed Replacing Humalog: [id number] unit delivered via insulin pump 240 mL [...] INJECTION ROUTE ONCE DAILY NEEDED REPLACING HUMALOG: [id number] UNIT DELIVERED VIA INSULIN PUMP 120 mL [...] Type Department Care Team Description 09/28/2024 Refill [facility] - Endocrinology [address] [place] [address], [address] [phone] Luana Mendez MD MEDICATION REFILL 08/12/2024 2:40 PM GROUND HAND Office Visit [facility] - Endocrinology [address] [place] [address], [address] [address] Luana Mendez MD Diabetic polyneuropathy associated with [...] Comments Blood Pressure 132/68 08/12/2024 2:46 PM GROUND HAND Pulse 93 08/12/2024 2:46 PM GROUND HAND Temperature 36.7 C (98 F) 04/04/2022 9:07 AM CDT Respiratory Rate 20 07/05/2021 8:07 AM CDT Oxygen Saturation 96% 08/12/2024 2:46 PM GROUND HAND Inhaled Oxygen Concentration - - Weight 134.7 kg (297 lb) 08/12/2024 2:46 PM GROUND HAND Height 177.8 cm (5' 10 ) 08/12/2024 2:46 PM GROUND HAND Body Mass Index 42.62 08/12/2024 2:46 PM GROUND HAND Plan of Treatment Upcoming Encounters Date Type Department Care Team (Late st Contact Info) Description 12/15/2024 3:00 PM CDT Office Visit [facility] - Endocrinology [address] [place] [address], [address] [phone] Luana Mendez MD [address] [place] [address] 03/16/2025 3:00 PM CDT Office Visit [facility] - Endocrinology [address] [place] [address], [address] [phone] Luana Mendez MD [address] [place] [address] [phone] Health Maintenance Due Date Last Done Comments [...] URINE RANDOM PANEL Routine 08/16/2024 11:56 AM GROUND HAND Uncontrolled type 1 diabetes mellitus with hypoglycemia and coma (HCC) CBC W AUTO DIFFERENTIAL Routine 08/16/2024 11:56 AM GROUND HAND Uncontrolled type 1 diabetes mellitus with hypoglycemia and coma (HCC) FRUCTOSAMINE Routine 08/16/2024 11:56 AM GROUND HAND Uncontrolled type 1 diabetes mellitus with hypoglycemia and coma (HCC) COMPREHENSIVE METABOLIC PANEL Routine 08/16/2024 11:56 AM GROUND HAND Uncontrolled type 1 diabetes mellitus with hypoglycemia and coma (HCC) Diabetic hypoglycemia (HCC) Hypoglycemia unawareness associated with type 1 diabetes mellitus (HCC) Primary hypertension Pure hypercholesterolemia LIPID PROFILE Routine 08/16/2024 11:56 AM GROUND HAND Uncontrolled type 1 diabetes mellitus with hypoglycemia and coma (HCC) Primary hypertension Pure hypercholesterolemia GLUCOSE TESTING AT HOME Routine 08/12/2024 10:37 AM GROUND HAND HEMOGLOBIN A1C - POINT OF CARE (AMB) [...] RATIO URINE RANDOM PANEL (08/16/2024 11:56 AM GROUND HAND) Creatinine Urine 181.3 Not Estab. mg/dL [facility] ACCOUNT BILL Microalbumin Urine 9.8 Not Estab. ug/mL [facility] ACCOUNT BILL Microalbumin/Crea tinine Ratio 5 0 - 29 mg/g creat [facility] ACCOUNT BILL Comment: Normal: 0 - 29 Moderately increased: 30 - 300 Severely increased: >300 Urine URINE SPECIMEN OBTAINED BY CLEAN CATCH PROCEDURE / Unknown 08/16/2024 11:56 AM GROUND HAND 08/16/2024 Narrative [facility] ACCOUNT BILL - 08/17/2024 7:05 AM GROUND HAND Performed at: [facility] [address] [id number] Mains And Service Supervisor: Jae Mckeon PhD, Phone: [phone] Luana Mendez MD LAB - URINE CHEM ISTRY ORDERABLES Performing Organization Address [facility] Co de Phone Number [facility] ACCOUNT BILL [address] [place] [address] * (ABNORMAL) FRUCTOSAMINE (08/16/2024 11:56 AM GROUND HAND) Fructosamine 291(H) 0 - 285 umol/L [facility] ACCOUNT BILL Comment: Published reference interval for apparently healthy subjects between age 20 and 60 is 205 - 285 umol/L and in a poorly controlled diabetic population is 228 - 563 umol/L with a mean of 396 umol/L. Blood BLOOD SPECIMEN / Unknown 08/16/2024 11:56 AM GROUND HAND 08/16/2024 Narrative [facility] ACCOUNT BILL - 08/17/2024 8:05 AM GROUND HAND Performed at: - [address] [id number] Mains And Service Supervisor: Jae Mckeon PhD, Phone: [phone] Luana Mendez MD LAB - CHEMISTRY ORDERABLES Performing Organization Address [facility] Co de Phone Number [facility] ACCOUNT BILL [address] [place] [address] * CBC WITH DIFFERENTIAL (08/16/2024 11:56 AM GROUND HAND) Pathologist [facility] WBC 5.3 3.4 - 10.8 x10E3/uL [facility] [...] BLOOD SPECIMEN / Unknown 08/16/2024 11:56 AM GROUND HAND 08/16/2024 Narrative [facility] ACCOUNT BILL - 08/17/2024 7:05 AM GROUND HAND Performed at: 01 - [address] [id number] Mains And Service Supervisor: Jae Mckeon PhD, Phone: [phone] Luana Mendez MD LAB - HEMATOLOGY ORDERABLES [facility] ACCOUNT BILL [address] [place] [address] * COMPREHENSIVE METABOLIC PANEL (08/16/2024 11:56 AM GROUND HAND) Glucose 94 70 - 99 mg/dL [facility] [...] BLOOD SPECIMEN / Unknown 08/16/2024 11:56 AM GROUND HAND 08/16/2024 Narrative [facility] ACCOUNT BILL - 08/17/2024 7:05 AM GROUND HAND Performed at: [address] [id number] Mains And Service Supervisor: Jae Mckeon PhD, Phone: [phone] Luana Mendez MD LAB - CHEMISTRY ORDERABLES Performing Organization Address City/State/[facility] Co de Phone Number [facility] ACCOUNT BILL [address] [place] [address] * (ABNORMAL) LIPID PROFILE (08/16/2024 11:56 AM GROUND HAND) Cholesterol 240(H) 100 - 199 mg/dL [facility] ACCOUNT BILL Triglycerides 217(H) 0 - 149 mg/dL [facility] ACCOUNT BILL HDL Cholesterol 43 >39 mg/dL [facility] ACCOUNT BILL VLDL Calculated 40 5 - 40 mg/dL [facility] ACCOUNT BILL LDL Calculated 157(H) 0 - 99 mg/dL [facility] ACCOUNT BILL Blood BLOOD SPECIMEN / Unknown 08/16/2024 11:56 AM GROUND HAND 08/16/2024 Narrative [facility] ACCOUNT BILL - 08/17/2024 7:05 AM GROUND HAND Performed at: - [facility] [id number] Mains And Service Supervisor: Jae Mckeon PhD, Phone: [phone] Luana Mendez MD LAB - CHEMISTRY ORDERABLES [facility] ACCOUNT [place] [address] * GLUCOSE TESTING AT HOME (08/12/2024 10:37 AM GROUND HAND) Luana Mendez MD NURSING - COMMUN ICATION * (ABNORMAL) GLUCOSE - POINT OF CARE (AMB) STL (08/12/2024) Glucose 120(A) 60 - 100 mg/dL Lot # [id number] Expiration Date 10/24/2025 QC Verified Yes Yes Blood BLOOD SPECIMEN / Unknown 08/12/2024 Luana Mendez MD LAB - POINT OF C ARE ORDERABLES * HEMOGLOBIN A1C - POINT OF CARE (HgbA1C) (08/12/2024) Hemoglobin A1c POCT 7.2 % Expiration Date 01/23/2026 Lot # [id number] QC Verified Yes Yes Blood BLOOD SPECIMEN / Unknown 08/12/2024 Luana Mendez MD LAB - POINT OF C ARE ORDERABLES * DIABETES EYE EXAM (09/13/2018) Historical Provider MD ANTON Manuel from Last 3 Months or Most Recently Relevant to Health Maintenance Care Teams Sound Effects Person Relationship Specialty Start Date End Date Sarath Edgar MD [address] [place] [address] PCP - General 03/18/12 [place] [address] [facility] [address] [place], [place] [phone] Endocrinology 04/05/15 [place] [address] [facility] [address] [place] [address] Ophthalmology 06/21/16 Randa Davis DPM [address] [facility] [address] [place] [address] Podiatry 06/21/16
--- OUTSIDE RECORDS SUMMARY | 2024-10-16 19:39 | XMS_ITS | Patient Health Summary ---
Author Organization [facility] Address [address] [facility] [place] [address] Care Team Providers Care Safety Deposit Clerk Name Role Phone Sarath Edgar MD Primary Care Provider [phone] Luana Mendez MD Unavailable [phone] Eun Duarte MD Unavailable [phone] Randa Davis DPM Unavailable [phone] Note from [facility],non-owned Affiliates and Associated Physician Practices is amultiple site organization consisting of ambulatory clinics and hospital sitesin [place], [place], [place] and [place]. This disclosure is being madepursuant to the Care Everywhere program and may not contain all information available regarding this patient. Last updated 18.[facility] Allergies * Atorvastatin(Myalgias) * Banana(Itching) * Rosuvastatin(Myalgias) [...] propionate (FLONASE) 50 MCG/ACT nasal spray(Started 05/09/2017) [place] 2 Sprays into each nostril once daily [...] route once daily as needed Replacing Humalog: [id number] unit delivered via insulin pump 3 refills [...] route once daily as needed Replacing Humalog: [id number] unit delivered via insulin pump 1 refill by 09/29/2025 Ended Medications* blood glucose (Accu-Chek Guide) test strip(Started 11/03/2022) (Discontinued) Use 1 (one) strip 8 times daily while awake While on insulin pump: with hypoglycemia 3 refills by 11/03/2023 * Insulin Lispro-aabc (Lyumjev) 100 UNIT/ML SOLN(Started 04/02/2024) (Discontinued) 120 UNITS BY INJECTION ROUTE ONCE DAILY NEEDED REPLACING HUMALOG: [id number] UNIT DELIVERED VIA INSULIN PUMP 1 refill [...] Comments Blood Pressure 132/68 08/12/2024 2:46 PM RESTAURANT INSPECTOR Pulse 93 08/12/2024 2:46 PM RESTAURANT INSPECTOR Temperature 36.7 C (98 F) 04/04/2022 9:07 AM CDT Respiratory Rate 20 07/05/2021 8:07 AM CDT Oxygen Saturation 96% 08/12/2024 2:46 PM RESTAURANT INSPECTOR Inhaled Oxygen Concentration - - Weight 134.7 kg (297 lb) 08/12/2024 2:46 PM RESTAURANT INSPECTOR Height 177.8 cm (5' 10 ) 08/12/2024 2:46 PM RESTAURANT INSPECTOR Body Mass Index 42.62 08/12/2024 2:46 PM RESTAURANT INSPECTOR Procedures * MICROALB/CREAT RATIO URINE RANDOM PANEL(Performed [...] RATIO URINE RANDOM PANEL (08/16/2024 11:56 AM RESTAURANT INSPECTOR) Only the most recent of13 resultswithin the [...] CATCH PROCEDURE / Unknown 08/16/2024 11:56 AM RESTAURANT INSPECTOR 08/16/2024 Narrative [facility] ACCOUNT BILL - 08/17/2024 7:05 AM RESTAURANT INSPECTOR Performed at: [facility] [address] [id number] Asbestos Brake Lining Finisher Helper: Jae Mckeon PhD, Phone: [phone] Luana Mendez MD LAB - URINE CHEM ISTRY ORDERABLES Performing Organization Address [facility] de Phone Number [facility] ACCOUNT BILL [address] [place] [address] * (ABNORMAL) FRUCTOSAMINE (08/16/2024 11:56 AM RESTAURANT INSPECTOR) Only the most recent of23 resultswithin the [...] BLOOD SPECIMEN / Unknown 08/16/2024 11:56 AM RESTAURANT INSPECTOR 08/16/2024 Narrative [facility] ACCOUNT BILL - 08/17/2024 8:05 AM RESTAURANT INSPECTOR Performed at: [address] [id number] Asbestos Brake Lining Finisher Helper: Jae Mckeon PhD, Phone: [phone] Luana Mendez MD LAB - CHEMISTRY ORDERABLES Performing Organization Address [facility] de Phone Number [facility] ACCOUNT BILL [address] [place] [address] * CBC WITH DIFFERENTIAL (08/16/2024 11:56 AM RESTAURANT INSPECTOR) Only the most recent of14 resultswithin the [...] BLOOD SPECIMEN / Unknown 08/16/2024 11:56 AM RESTAURANT INSPECTOR 08/16/2024 Narrative [facility] ACCOUNT BILL - 08/17/2024 7:05 AM RESTAURANT INSPECTOR Performed at: 01 - [facility] [id number] Asbestos Brake Lining Finisher Helper: Jae Mckeon PhD, Phone: [phone] Luana Mendez MD LAB - HEMATOLOGY ORDERABLES [facility] ACCOUNT BILL [address] [place] [address] * COMPREHENSIVE METABOLIC PANEL (08/16/2024 11:56 AM RESTAURANT INSPECTOR) Only the most recent of29 resultswithin the [...] BLOOD SPECIMEN / Unknown 08/16/2024 11:56 AM RESTAURANT INSPECTOR 08/16/2024 Narrative [facility] ACCOUNT BILL - 08/17/2024 7:05 AM RESTAURANT INSPECTOR Performed at: 01 - [address] [id number] Asbestos Brake Lining Finisher Helper: Jae Mckeon PhD, Phone: [phone] Luana Mendez MD LAB - CHEMISTRY ORDERABLES [facility] ACCOUNT BILL [address] [place] [address] * (ABNORMAL) LIPID PROFILE (08/16/2024 11:56 AM RESTAURANT INSPECTOR) Only the most recent of28 resultswithin the [...] BLOOD SPECIMEN / Unknown 08/16/2024 11:56 AM RESTAURANT INSPECTOR 08/16/2024 Narrative [facility] ACCOUNT BILL - 08/17/2024 7:05 AM RESTAURANT INSPECTOR Performed at: 01 - [facility] [address] [id number] Asbestos Brake Lining Finisher Helper: Jae Mckeon PhD, Phone: [phone] Luana Mendez MD LAB - CHEMISTRY ORDERABLES [facility] ACCOUNT BILL [address] [place] [address] * GLUCOSE TESTING AT HOME (08/12/2024 10:37 AM RESTAURANT INSPECTOR) Luana Mendez MD NURSING - COMMUN ICATION * (ABNORMAL) GLUCOSE - POINT OF CARE (AMB) STL (08/12/2024) Only the most recent of20 resultswithin the time period is included. Glucose 120(A) 60 - 100 mg/dL Lot # [id number] Expiration Date 10/24/2025 QC Verified Yes Yes Blood BLOOD SPECIMEN / Unknown 08/12/2024 Luana Mendez MD LAB - POINT OF C ARE ORDERABLES * HEMOGLOBIN A1C - POINT OF CARE (HgbA1C) (08/12/2024) Only the most recent of21 resultswithin the time period is included. Hemoglobin A1c POCT 7.2 % Expiration Date 01/23/2026 Lot # [id number] QC Verified Yes Yes Blood BLOOD SPECIMEN [...] and 39 years old. Charissa et.al. JCEM 2017,102;2473-8873 PMID: [id number]. Testosterone Bioavailable 460(H) ng/dL [facility] ACCOUNT BILL Comment: Reference Range: Males (50 - 69y): 95 - 285 Testosterone Bioavailable 52.9 % [facility] ACCOUNT BILL Comment:FASTING Blood BLOOD SPECIMEN / Unknown 04/28/2023 8:15 AM CDT 04/28/2023 Narrative Resulting Agency Comment Lab Testing performed at: [facility] [address] [place] [id number] Luana Mendez MD LAB - CHEMISTRY ORDERABLES [facility] ACCOUNT BILL [address] [place] [address] * HEPATIC FUNCTION PANEL (10/28/2022 11:51 AM RESTAURANT INSPECTOR) Protein Total 6.9 6.0 - 8.5 g/dL [...] BLOOD SPECIMEN / Unknown 10/28/2022 11:51 AM RESTAURANT INSPECTOR 10/28/2022 Narrative Resulting Agency Comment Lab Testing performed at: [facility] [address] [facility] [id number] Luana Mendez MD LAB - CHEMISTRY ORDERABLES Performing Organization Address [facility] de Phone Number [facility] ACCOUNT BILL [address] [place] [address] * (ABNORMAL) HEMOGLOBIN A1C W EAG (10/28/2022 11:50 AM RESTAURANT INSPECTOR) Only the most recent of3 resultswithin the time period is included. Hemoglobin A1c 7.3(H) 4.8 - 5.6 % [facility] ACCOUNT BILL Comment: . Prediabetes: 5.7 - 6.4 Diabetes: >6.4 Glycemic control for adults with diabetes: <7.0 Estimated Average Glucose 163 mg/dL [facility] ACCOUNT BILL Comment:FASTING Blood BLOOD SPECIMEN / Unknown 10/28/2022 11:50 AM RESTAURANT INSPECTOR 10/28/2022 Narrative Resulting Agency Comment Lab Testing performed at: [facility] [employer] [facility] [id number] Luana Mendez MD LAB - CHEMISTRY ORDERABLES Performing Organization Address [facility] Phone Number [facility] ACCOUNT BILL [address] [place] [address] * VITAMIN B12 FOLATE PANEL (10/07/2022 11:41 AM RESTAURANT INSPECTOR) Only the most recent of3 resultswithin the time period is included. Vitamin B12 742 232 - 1,245 pg/mL [facility] ACCOUNT BILL Folate 18.7 >3.0 ng/mL [facility] ACCOUNT BILL Comment: A serum folate concentration of less than 3.1 ng/mL is considered to represent clinical deficiency. Blood BLOOD SPECIMEN / Unknown 10/07/2022 11:41 AM RESTAURANT INSPECTOR 10/07/2022 Narrative Resulting Agency Comment Lab Testing performed at: [facility] [address] [facility] [id number] Luana Mendez MD LAB - CHEMISTRY ORDERABLES Performing Organization Address [facility]/State/ZIP Co de Phone Number [facility] ACCOUNT BILL [address] [place] [address] * (ABNORMAL) HEMOGLOBIN A1C (07/17/2022 10:59 AM RESTAURANT INSPECTOR) Only the most recent of12 resultswithin the time period is included. Hemoglobin A1c 7.3(H) 4.8 - 5.6 % [facility] ACCOUNT BILL Comment: . Prediabetes: 5.7 - 6.4 Diabetes: >6.4 Glycemic control for adults with diabetes: <7.0 FASTING Blood BLOOD SPECIMEN / Unknown 07/17/2022 10:59 AM RESTAURANT INSPECTOR 07/17/2022 Narrative Resulting Agency Comment Lab Testing performed at: [facility] [address] [facility] [id number] Luana Mendez MD LAB - CHEMISTRY ORDERABLES [facility] ACCOUNT BILL [address] [place] [address] * VITAMIN D 25-HYDROXY (07/17/2022 10:59 AM RESTAURANT INSPECTOR) Only the most recent of6 resultswithin the time period is included. Vitamin D, 25 Hydroxy 45.4 30.0 - 100.0 ng/mL [facility] ACCOUNT BILL Comment: Vitamin D deficiency has been defined by the [place] of Medicine and an Endocrine Society practice guideline as a level of serum 25-OH vitamin D less than 20 ng/mL (1,2). The Endocrine Society went on to further define vitamin D insufficiency as a level between 21 and 29 ng/mL (2). 1. IOM ([place] of Medicine). 2010. Dietary reference intakes for calcium and D. [place]: The National Academies Press. 2. Gene MF, Doreen NC, Lia GALLEGOS, et al. Evaluation, treatment, and prevention of vitamin D deficiency: an Endocrine Society clinical practice guideline. JCEM. 2010; 96(7):1911-30. FASTING Blood BLOOD SPECIMEN / Unknown 07/17/2022 10:59 AM RESTAURANT INSPECTOR 07/17/2022 Narrative Resulting Agency Comment Lab Testing performed at: [facility] [address] [facility] [id number] Luana Mendez MD LAB - CHEMISTRY ORDERABLES Performing Organization Address [facility] de Phone Number [facility] ACCOUNT BILL [address] [place] [address] * TSH (04/04/2022 10:17 AM CDT) Only the most recent of4 resultswithin the time period is included. [facility] TSH 0.8587 0.35 - 4.94 uIU/mL [facility] ACCOUNT BILL Comment:FASTING Blood BLOOD SPECIMEN / Unknown 04/04/2022 10:17 AM CDT 04/04/2022 Narrative Resulting Agency Comment Lab Testing performed at: [address] Arely PELAEZ [id number] Luana Mendez MD LAB - CHEMISTRY ORDERABLES Performing Organization Address [facility] de Phone Number [facility] ACCOUNT BILL [address] [place] [address] * T4 FREE (04/04/2022 10:17 AM CDT) Only the most recent of2 resultswithin the time period is included. [facility] T4 Free 1.14 0.70 - 1.48 ng/dL [facility] ACCOUNT BILL Comment:FASTING Blood BLOOD SPECIMEN / Unknown 04/04/2022 10:17 AM CDT 04/04/2022 Narrative Resulting Agency Comment Lab Testing performed at: [address] Arely PELAEZ [id number] Luana Mendez MD LAB - CHEMISTRY ORDERABLES Performing Organization Address City/[facility] de Phone Number [facility] ACCOUNT BILL [address] [place] [address] * T3 TOTAL (04/04/2022 10:17 AM CDT) [facility] T3 Total 1.25 0.35 - 1.93 ng/mL [facility] ACCOUNT BILL Comment: FASTING Blood BLOOD SPECIMEN / Unknown 04/04/2022 10:17 AM CDT 04/04/2022 Narrative Resulting Agency Comment Lab Testing performed at: [facility] [address] [facility] [id number] Luana Mendez MD LAB - CHEMISTRY ORDERABLES Performing Organization Address City/[facility]/ZIP Co de Phone Number [facility] ACCOUNT BILL [address] [place] [address] * (ABNORMAL) C-PEPTIDE (10/06/2019 10:51 AM RESTAURANT INSPECTOR) C-Peptide <0.1(L) 1.1 - 4.4 ng/mL [facility] ACCOUNT BILL Comment: C-Peptide reference interval is for fasting patients. FASTING Blood BLOOD SPECIMEN / Unknown 10/06/2019 10:51 AM RESTAURANT INSPECTOR 10/06/2019 Narrative Resulting Agency Comment [facility]: [facility] [address] [facility] [id number] Natasha Peraza PLATE MILL HAND-HAND POLISHER LAB - CHEMI STRY ORDERABLES Performing Organization Address [facility] Co de Phone Number [facility] ACCOUNT BILL [address] [place] [address] * DIABETES EYE EXAM (09/13/2018) Only the [...] PM CDT Narrative Resulting Agency Comment [facility] [address] [facility] [id number] Natasha Peraza PLATE [employer] HAND-HAND POLISHER LAB - CHEMI STRY ORDERABLES [facility] INSURANCE BILL [address] [place] [address] * (ABNORMAL) GLUCOSE - POINT OF CARE (08/11/2015) Only the most recent of7 resultswithin the time period is included. Glucose 214(A) 60 - 100 mg/dL Blood specimen (specimen) BLOOD SPECIMEN / Unknown 08/11/2015 Luana Mendez MD LAB - POINT OF C ARE ORDERABLES * EMG WITH NERVE CONDUCTION STUDY (05/26/2015) Randa Davis DPSlime NEUROLOGY ORDERABLES Performing Organization Address City/[facility]/ZIP Co de Phone Number [facility] RESULT SCAN [...] DERMATOLOGY (04/23/2014 12:00 AM CDT) Result CASE: [id number] PATIENT: MODESTO MOROCHO PATHOLOGIC DIAGNOSIS: A. Right [...] out by Trinidad Das M.D. 04/29/2014 3:39:25PM [facility] D[facility] Comment: Performed at: Dermatopathology Laboratory [facility] - Department of Dermatology [address] [place] [address], 5th [place] [address] Phone number: [phone] FAX: [phone] 04/23/2014 04/28/2014 Sarath Edgar MD LAB - PATHOLOGY/CYTO LOGY ORDERABLES [facility] [address]. [address] [place] [address], [facility] [phone] * LAB RESULTS ORDER (09/16/2012) Sarath Edgar MD LAB - THERAPEUTIC DR COSTA MONITORING ORDERABLES Care Teams Safety Deposit Clerk Relationship Specialty Start Date End Date Sarath Edgar MD [address] [place] [id number] PCP - General 03/18/12 [place] [address] [facility] [address] [place] [address] Endocrinology 04/05/15 [place] [address] [facility] [address] [place] [id number] Ophthalmology 06/21/16 Randa Davis DPM [address] [facility] [address] [place] [address] Podiatry 06/21/16
--- OUTSIDE RECORDS SUMMARY | 2024-10-16 19:39 | XMS_ITS | Encounter Summary ---
Author Organization [facility] Address [address] [facility] [place] [address] Care Team Providers Care Adjuster Name Role Phone Sarath Edgar MD Primary Care Provider [phone] Jorge Olivia DO Unavailable [phone] Luana Mendez MD Unavailable [phone] Eun Duarte MD Unavailable [phone] Randa Davis DPSlime Unavailable [phone] Encounter Details Date Type Department Care Team (Late st Contact Info) Description 07/18/2013 [facility] Outpatient Visit [facility] - Endocrinology [address] [address] [place] [address] [address] Social History Tobacco Use Types [...] Description 12/15/2024 3:00 PM CDT Office Visit [facility] - Endocrinology [address] [place] [phone] Luana Mendez MD [address] [place] [address] 03/16/2025 3:00 PM CDT Office Visit [facility] - Endocrinology [address] [place] [phone] Luana Mendez MD [address] [place] [address] documented as of this encounter Visit Diagnoses Not on filedocumented in this encounter Care Teams Adjuster Relationship Specialty Start Date End Date Sarath Edgar MD [address] [place] [address] PCP - General 03/18/12 Jorge Olivia DO [address] [place] [address] Orthopedic Surgery 12/03/12 06/20/16 Luana Mendez [place] [id number] [place] [address] Endocrinology 04/05/15 [place] [address] [facility] [address] [place] [phone] Ophthalmology 06/21/16 Randa Davis DPM [id number] [place] [address] DR SOLIS [address] [place] [address] Podiatry 06/21/16 documented as of this encounter
--- OUTSIDE RECORDS SUMMARY | 2024-10-16 19:39 | XMS_ITS | Encounter Summary ---
Author Organization [facility] Address [address] [facility] [place] [address] Care Team Providers Care Time Piece Repairer Name Role Phone Sarath Edgar MD Primary Care Provider [phone] Jorge Olivia DO Unavailable Luana Mendez MD Unavailable [phone] Eun Duarte MD Unavailable [phone] Randa Davis DPSlime Unavailable Encounter Details Date Type Department Care Team (Late st Contact Info) Description 03/17/2012 [facility] Outpatient Visit [facility]NAL [facility] DEPT Lu[place] Mendez [place] [id number] [place] [address] [address] [place] [address] Social History Tobacco Use Types [...] Description 12/15/2024 3:00 PM CDT Office Visit [facility] Medical [facility] - Endocrinology [address] [place] [address], [address] [place] [phone] Luana Mendez MD [address] [place] [address] [address] [place] [address] 03/16/2025 3:00 PM CDT Office Visit [facility] - Endocrinology [address] [facility], [address] [place] [address] [place] [address] [facility] [address] [place] [address] documented as of this encounter Visit Diagnoses Not on filedocumented in this encounter Care Teams Time Piece Repairer Relationship Specialty Start Date End Date Sarath Edgar MD [address] [place] [address] PCP - General 03/18/12 Jorge Olivia DO [address] [place] [address] Orthopedic Surgery 12/03/12 06/20/16 [place] [address] [facility] [address] [place] [address] Endocrinology 04/05/15 [place] [address] [facility] [address] [place] [phone] Ophthalmology 06/21/16 Randa Davis DPM [address] [facility] [address] [place] [address] Podiatry 06/21/16 documented as of this encounter
--- OUTSIDE RECORDS SUMMARY | 2024-10-16 19:39 | XMS_ITS | Continuity of Care Document ---
Author Name [facility] Organization [facility] Care Team Providers Care Epic Professional Name Role Phone [facility] Unavailable Unavailable Social History Combined list of available smoking, tobacco, and other social history from Department of Defense and Veterans Affairs facilities. Social History Type Response Date Comment Sourc e This section is an empty social history section. [facility]
--- OUTSIDE RECORDS SUMMARY | 2024-10-16 19:39 | XMS_ITS | Referral Summary ---
Author Organization [facility] Address [address] [facility] [place] [address] Care Team Providers Care Master Deputy Sheriff Court Security Name Role Phone Sarath Edgar MD Primary Care Provider [phone] Luana Mendez MD Unavailable [phone] Eun Duarte MD Unavailable [phone] Randa Davis DPM Unavailable [phone] Source Comments [facility],non-owned Affiliates and Associated Physician Practices is amultiple site organization consisting of ambulatory clinics and hospital sitesin [place], [place], [place] and [place]. This disclosure is being madepursuant to the Care Everywhere program and may not contain all information available regarding this patient. Last updated 18.[facility] Encounters Date Type Department Care Team Description 09/28/2024 Refill [facility] - Endocrinology [address] [place] [address], [address] [address] Luana Mendez MD MEDICATION REFILL 08/12/2024 2:40 PM NICKING MACHINE OPERATOR Office Visit [facility] Endocrinology [address] [place] [address], [address] [address] Luana Mendez MD Diabetic polyneuropathy [...] fluticasone propionate (FLONASE) 50 MCG/ACT nasal spray [place] 2 Sprays into each nostril once daily [...] route once daily as needed Replacing Humalog: [id number] unit delivered via insulin pump 120 mL [...] route once daily as needed Replacing Humalog: [id number] unit delivered via insulin pump 240 mL [...] INJECTION ROUTE ONCE DAILY NEEDED REPLACING HUMALOG: [id number] UNIT DELIVERED VIA INSULIN PUMP 120 mL [...] Comments Blood Pressure 132/68 08/12/2024 2:46 PM NICKING MACHINE OPERATOR Pulse 93 08/12/2024 2:46 PM NICKING MACHINE OPERATOR Temperature 36.7 C (98 F) 04/04/2022 9:07 AM CDT Respiratory Rate 20 07/05/2021 8:07 AM CDT Oxygen Saturation 96% 08/12/2024 2:46 PM NICKING MACHINE OPERATOR Inhaled Oxygen Concentration - - Weight 134.7 kg (297 lb) 08/12/2024 2:46 PM NICKING MACHINE OPERATOR Height 177.8 cm (5' 10 ) 08/12/2024 2:46 PM NICKING MACHINE OPERATOR Body Mass Index 42.62 08/12/2024 2:46 PM NICKING MACHINE OPERATOR Plan of Treatment Upcoming Encounters Date Type Department Care Team (Late st Contact Info) Description 12/15/2024 3:00 PM CDT Office Visit [facility] - Endocrinology [address] [place] [phone] Luana Mendez MD [address] [place] [phone] 03/16/2025 3:00 PM CDT Office Visit [facility] - Endocrinology [address] [place] [phone] Luana Mendez MD [address] [place] [address] Procedures Procedure Name Priority Date/Time Associated Diagnosis Comments MICROALB/CREAT RATIO URINE RANDOM PANEL Routine 08/16/2024 11:56 AM NICKING MACHINE OPERATOR Uncontrolled type 1 diabetes mellitus with hypoglycemia and coma (HCC) CBC W AUTO DIFFERENTIAL Routine 08/16/2024 11:56 AM NICKING MACHINE OPERATOR Uncontrolled type 1 diabetes mellitus with hypoglycemia and coma (HCC) FRUCTOSAMINE Routine 08/16/2024 11:56 AM NICKING MACHINE OPERATOR Uncontrolled type 1 diabetes mellitus with hypoglycemia and coma (HCC) COMPREHENSIVE METABOLIC PANEL Routine 08/16/2024 11:56 AM NICKING MACHINE OPERATOR Uncontrolled type 1 diabetes mellitus with hypoglycemia and coma (HCC) Diabetic hypoglycemia (HCC) Hypoglycemia unawareness associated with type 1 diabetes mellitus (HCC) Primary hypertension Pure hypercholesterolemia LIPID PROFILE Routine 08/16/2024 11:56 AM NICKING MACHINE OPERATOR Uncontrolled type 1 diabetes mellitus with hypoglycemia and coma (HCC) Primary hypertension Pure hypercholesterolemia GLUCOSE TESTING AT HOME Routine 08/12/2024 10:37 AM NICKING MACHINE OPERATOR HEMOGLOBIN A1C - POINT OF CARE (AMB) [...] RATIO URINE RANDOM PANEL (08/16/2024 11:56 AM NICKING MACHINE OPERATOR) Pathologist [facility] [place] Creatinine Urine 181.3 Not Estab. mg/dL [facility] ACCOUNT BILL Microalbumin Urine 9.8 Not Estab. ug/mL [facility] ACCOUNT BILL Microalbumin/Crea tinine Ratio 5 0 - 29 mg/g creat [facility] ACCOUNT BILL Comment: Normal: 0 - 29 Moderately increased: 30 - 300 Severely increased: >300 Urine URINE SPECIMEN OBTAINED BY CLEAN CATCH PROCEDURE / Unknown 08/16/2024 11:56 AM NICKING MACHINE OPERATOR 08/16/2024 Narrative [facility] ACCOUNT BILL - 08/17/2024 7:05 AM NICKING MACHINE OPERATOR Performed at: 01 - [facility] [address] [id number] Health Lead: Jae Mckeon PhD, Phone: [phone] Luana Mendez MD LAB - URINE CHEM ISTRY ORDERABLES Performing Organization Address [facility] de Phone Number [facility] ACCOUNT BILL [address] [place] [address] * (ABNORMAL) FRUCTOSAMINE (08/16/2024 11:56 AM NICKING MACHINE OPERATOR) Pathologist [facility] [place] Fructosamine 291(H) 0 - 285 umol/L [facility] ACCOUNT BILL Comment: Published reference interval for apparently healthy subjects between age 20 and 60 is 205 - 285 umol/L and in a poorly controlled diabetic population is 228 - 563 umol/L with a mean of 396 umol/L. Blood BLOOD SPECIMEN / Unknown 08/16/2024 11:56 AM NICKING MACHINE OPERATOR 08/16/2024 Narrative [facility] ACCOUNT BILL - 08/17/2024 8:05 AM NICKING MACHINE OPERATOR Performed at: - [facility] [address] [id number] Health Lead: Jae Mckeon PhD, Phone: [phone] Luana Mendez MD LAB - CHEMISTRY ORDERABLES Performing Organization Address [facility] de Phone Number [facility] ACCOUNT BILL [address] [place] [address] * CBC WITH DIFFERENTIAL (08/16/2024 11:56 AM NICKING MACHINE OPERATOR) Pathologist [facility] [place] WBC 5.3 3.4 - 10.8 x10E3/uL [facility] [...] BLOOD SPECIMEN / Unknown 08/16/2024 11:56 AM NICKING MACHINE OPERATOR 08/16/2024 Narrative [facility] ACCOUNT BILL - 08/17/2024 7:05 AM NICKING MACHINE OPERATOR Performed at: 01 - [address] [id number] Health Lead: Jae Mckeon PhD, Phone: [phone] Luana Mendez MD LAB - HEMATOLOGY ORDERABLES [facility] ACCOUNT BILL [address] [place] [address] * COMPREHENSIVE METABOLIC PANEL (08/16/2024 11:56 AM NICKING MACHINE OPERATOR) Glucose 94 70 - 99 mg/dL [facility] [...] BLOOD SPECIMEN / Unknown 08/16/2024 11:56 AM NICKING MACHINE OPERATOR 08/16/2024 Narrative [facility] ACCOUNT BILL - 08/17/2024 7:05 AM NICKING MACHINE OPERATOR Performed at: [facility] [id number] Health Lead: Jae Mckeon PhD, Phone: [phone] Luana Mendez MD LAB - CHEMISTRY ORDERABLES [facility] ACCOUNT BILL [address] [place] [address] * (ABNORMAL) LIPID PROFILE (08/16/2024 11:56 AM NICKING MACHINE OPERATOR) Cholesterol 240(H) 100 - 199 mg/dL [facility] ACCOUNT BILL Triglycerides 217(H) 0 - 149 mg/dL [facility] ACCOUNT BILL HDL Cholesterol 43 >39 mg/dL [facility] ACCOUNT BILL VLDL Calculated 40 5 - 40 mg/dL [facility] ACCOUNT BILL LDL Calculated 157(H) 0 - 99 mg/dL [facility] ACCOUNT BILL Blood BLOOD SPECIMEN / Unknown 08/16/2024 11:56 AM NICKING MACHINE OPERATOR 08/16/2024 Narrative [facility] ACCOUNT BILL - 08/17/2024 7:05 AM NICKING MACHINE OPERATOR Performed at: [address] [id number] Health Lead: Jae Mckeon PhD, Phone: [phone] Luana Mendez MD LAB - CHEMISTRY ORDERABLES [facility] [place] [address] * GLUCOSE TESTING AT HOME (08/12/2024 10:37 AM NICKING MACHINE OPERATOR) Luana Mendez MD NURSING - COMMUN ICATION * (ABNORMAL) GLUCOSE - POINT OF CARE (AMB) STL (08/12/2024) Glucose 120(A) 60 - 100 mg/dL Lot # [id number] Expiration Date 10/24/2025 QC Verified Yes Yes Blood BLOOD SPECIMEN / Unknown 08/12/2024 Luana Mendez MD LAB - POINT OF C ARE ORDERABLES * HEMOGLOBIN A1C - POINT OF CARE (HgbA1C) (08/12/2024) Hemoglobin A1c POCT 7.2 % Expiration Date 01/23/2026 Lot # [id number] QC Verified Yes Yes Blood BLOOD SPECIMEN / Unknown 08/12/2024 Luana Mendez MD LAB - POINT OF C ARE ORDERABLES * DIABETES EYE EXAM (09/13/2018) Historical Provider MD ANTON Manuel from Last 3 Months or Most Recently Relevant to Health Maintenance Administered Medications Care Teams Master Deputy Sheriff Court Security Relationship Specialty Start Date End Date Sarath Edgar MD [address] [place] [address] PCP - General 03/18/12 [place] [address] [facility] Associated Content [address] [place], [place] [phone] Endocrinology 04/05/15 [place] [address] [facility] [address] [place] [phone] Ophthalmology 06/21/16 Randa Davis DPM [address] [facility] [address] [place] [address] Podiatry 06/21/16
[2024-10-16 20:47] LABS: Troponin I < 0.012 ng/mL (0.000-0.034)
[2024-10-16] MEDS: SODIUM CHLORIDE 0.9% IV 1,000 ML 999 ML IV CONT (20:47)
[2024-10-16] MEDS: KETOROLAC 30 MG/ML VIAL (*BKC) IV PUSH (20:48)
[2024-10-16 20:51] VITALS: BP 150/77; PULSE 90; RESP 21; O2SAT 97
[2024-10-16 22:26] VITALS: BP 119/66; PULSE 83; RESP 19; O2SAT 98
[2024-10-16 22:27] VITALS: BP 119/66; PULSE 83; RESP 19; O2SAT 98
== END 2024-10-16 22:29 | disposition home or self-care (01) ==
PROVIDERS: Emergency Medicine; Emergency Provider Emergency Medicine; PCP Family Medicine
DX: M62.830 Muscle spasm of back (principal); E10.9 Type 1 diabetes mellitus without complications; E66.9 Obesity, unspecified; Z68.41 Body mass index [BMI] 40.0-44.9, adult; Z87.891 Personal history of nicotine dependence; Z79.4 Long term (current) use of insulin
CPT/HCPCS: 36415; 71275; 80053; 83690; 84484; 85025; 85610; 85730; 93005; 96361; 96374; 99284; J1885; J7030; Q9967

== ENCOUNTER 2025-02-21 17:20 | Emergency (ER) | payer BC, SELFPAY ==
[2025-02-21 17:24] VITALS: BP 152/66; PULSE 96; RESP 20; TEMP 36.6; O2SAT 95
--- NOTE | 2025-02-21 18:26 | ED_ITS ---
HPI - General Adult General Chief complaint: Skin/Abscess/Foreign Body Stated complaint: insect bite to abd, red and getting biger Time Seen by Provider: 02/21/25 18:25 History of Present Illness HPI narrative: This is a 60-year-old male presenting ED with chief redness to his abdomen. Patient thinks he might have been bit by a spider several days ago. He then developed spreading erythema over his abdomen. He saw his primary care physician was placed on doxycycline which he has been taking for several days. Redness has decreased in intensity but is still covering portions of his abdomen. He had fevers the day of the bite but has been afebrile for 5 days. No other systemic signs of illness. Related Data Home Medications ?Medication ?Instructions ?Recorded ?Confirmed ?Last Taken ?Type insulin lispro-aabc 100 unit/mL 1 sliding scale dose subcut 10/18/21 10/16/24 Unknown History subcutaneous solution (Lyumjev USEASDIRECTD U-100 Insulin) Allergies Allergy/AdvReac Type Severity Reaction Status Date / Time No Known Allergies Allergy Unknown Verified 02/21/25 17:23 [facility] Past Medical History Medical History (Updated 02/21/25 @ 18:38 by Hardy Smith MD) Spider bite Dyspnea Tachycardia Leg edema Right wrist pain Left lateral epicondylitis Screen for colon cancer Screening for prostate cancer Chest wall pain Erectile dysfunction Scratch Low vitamin D level BMI greater than 40 Abnormal MRI, lumbar spine Foot pain, bilateral Vertigo Umbilical hernia BMI 40.0-44.9, adult Obesity Diabetes Family History Family History Grandparent Malignant neoplasm of prostate Father COVID-19 Diabetes mellitus Mother COVID-19 Sibling COVID-19 Diabetes mellitus Social History Social History Smoking status: Former smoker Tobacco type: cigarettes Second hand tobacco smoke exposure: No Smoking end date: 03/02/12 Alcohol intake: current Substance use: never Substance use type: does not use Do You Feel Safe in your Home?: Yes Lack of Transportation: No Lack of Food: Never True Current Housing: I Have Housing Concerned About Future Housing: No Difficulty Paying Gas/Electric Bills: No Difficulty Paying for Meds: No Currently Unemployed: No Education: High School Diploma/GED Difficulty w/ Childcare or Family Care: No Living arrangements: alone Occupation/Education: occupation 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 Gender identity (if verbalized by the patient): Male Exam Narrative: APPEARANCE: No apparent distress. Head: atraumatic. EYES: EOMI, NOSE: Atraumatic NECK: Trachea midline RESPIRATORY: No increased rate of breathing CARDIOVASCULAR: RRR, ABDOMINAL: Soft nontender, diffuse pinkish rash over the lower portion of the abdomen with skin marker outlined. Central areas of excoriation. No areas of fluctuance or abscess. No necrotic areas. MUSCULOSKELETAl: No obvious deformities NEURO: Alert. Moving 4/4 extremities SKIN:: Warm, dry. Normal color PSYCHIATRIC: Normal affect Course Vital Signs Vital signs: Vital Signs Temperature 97.9 F 02/21/25 17:24 Pulse Rate 96 02/21/25 17:24 Respiratory Rate 20 02/21/25 17:24 Blood Pressure 152/66 H 02/21/25 17:24 Pulse Oximetry 95 02/21/25 17:24 Oxygen Delivery Room Air 02/21/25 17:24 Temperature 97.9 F 02/21/25 17:24 Pulse Rate 96 02/21/25 17:24 Respiratory Rate 20 02/21/25 17:24 Blood Pressure 152/66 H 02/21/25 17:24 Pulse Oximetry 95 02/21/25 17:24 Oxygen Delivery Room Air 02/21/25 17:24 Medical Decision Making [facility] Narrative Medical decision making narrative: -Course: 60-year-old male presenting with cellulitis of his abdomen. Physical exam shows cellulitis without evidence of abscess. Patient has multiple photos of the cellulitis on his phone and it actually appears to be improving. No systemic signs of illness or abnormal v/s. Patient has been on doxycycline. Patient be given 2 g of IM Ancef and placed on Keflex 500 mg Q q.i.d. x7 days. If the patient does not respond to p.o. cephalexin in 48 hours he should return to the ED for IV antibiotics. Sugars have been well controlled and he has an insulin pump. Otherwise the patient is well-appearing with stable vitals and no other symptoms. Patient is comfortable following up his primary care physician returning if he gets worse. -DDX includes but is not limited to: Spider bite, cellulitis Vital Signs Vital Signs: Vital Signs Temperature 97.9 F 02/21/25 17:24 Pulse Rate 96 02/21/25 17:24 Respiratory Rate 20 02/21/25 17:24 Blood Pressure 152/66 H 02/21/25 17:24 Pulse Oximetry 95 02/21/25 17:24 Oxygen Delivery Room Air 02/21/25 17:24 Temperature 97.9 F 02/21/25 17:24 Pulse Rate 96 02/21/25 17:24 Respiratory Rate 20 02/21/25 17:24 Blood Pressure 152/66 H 02/21/25 17:24 Pulse Oximetry 95 02/21/25 17:24 Oxygen Delivery Room Air 02/21/25 17:24 Discharge Plan Discharge Clinical Impression: Cellulitis Patient Disposition: Home Condition: Stable Instructions: Antibiotic Form, Cellulitis (ED) Additional Instructions: You were seen in the emergency department for cellulitis. Please take cephalexin 500 mg every 6 hours for 7 days. If your symptoms do not improve in the next 48 hours he can return to ED for re-evaluation. If you develop fevers or feel like you are getting ill please return to the ED immediately. Patient Language: Portuguese Prescriptions: New cephalexin 500 mg capsule 500 mg PO Q6H 7 Days Qty: 28 0RF No Action cetirizine-pseudoephedrine [Zyrtec-D] 5-120 mg tablet extended release 12 hr 1 tablet PO BID Qty: 60 2RF Lyumjev U-100 Insulin 100 unit/mL solution 1 sliding scale dose subcut USEASDIRECTD doxycycline monohydrate 100 mg capsule 100 mg PO BID Qty: 14 0RF Follow-up/Referrals: Sarath Edgar MD [Primary Care Provider] -
[2025-02-21] MEDS: ceFAZolin SODIUM 1 GM VIAL 2 GM IM (19:03)
[2025-02-21] MEDS: WATER, STERILE FOR INJECTION 10 ML VIAL XX (19:03)
== END 2025-02-21 19:14 | disposition home or self-care (01) ==
LOC: ANHED 18:54
PROVIDERS: Emergency Provider Emergency Medicine; PCP Family Medicine
DX: L03.311 Cellulitis of abdominal wall (principal); E11.9 Type 2 diabetes mellitus without complications; E66.9 Obesity, unspecified; Z68.41 Body mass index [BMI] 40.0-44.9, adult; Z96.41 Presence of insulin pump (external) (internal); Z87.891 Personal history of nicotine dependence; Z79.4 Long term (current) use of insulin
CPT/HCPCS: 96372; 96374; 96375; 99284; J0690; J2405; J2704

== ENCOUNTER 2025-05-09 10:33 | Emergency (ER) | payer BC, SELFPAY ==
--- OUTSIDE RECORDS SUMMARY | 2013-05-09 03:00 | XMS_ITS | Continuity of Care Document ---
Author Organization [facility] Address [address] [place] [address] [address] [place] [address] Phone Care Team Providers Care Detective [employer] Name Role Phone Frank BOYThu Unavailable Unavailable Procedures Procedure Date Theraband, per yard THERAPEUTIC EXERCISES NEUROMUSCULAR RE-ED MANUAL THERAPY HOT/COLD PACK PT RE-EVALUATION THERAPEUTIC EXERCISES NEUROMUSCULAR RE-ED MANUAL THERAPY FUNC ACTIVITY 15 MIN HOT/COLD PACK THERAPEUTIC EXERCISES NEUROMUSCULAR RE-ED MANUAL THERAPY FUNC ACTIVITY 15 MIN HOT/COLD PACK THERAPEUTIC EXERCISES NEUROMUSCULAR RE-ED MANUAL THERAPY FUNC ACTIVITY 15 MIN HOT/COLD PACK THERAPEUTIC EXERCISES NEUROMUSCULAR RE-ED MANUAL THERAPY FUNC ACTIVITY 15 MIN THERAPEUTIC EXERCISES NEUROMUSCULAR RE-ED MANUAL THERAPY FUNC ACTIVITY 15 MIN HOT/COLD PACK THERAPEUTIC EXERCISES NEUROMUSCULAR RE-ED MANUAL THERAPY HOT/COLD PACK THERAPEUTIC EXERCISES NEUROMUSCULAR RE-ED THERAPEUTIC EXERCISES NEUROMUSCULAR RE-ED FUNC ACTIVITY 15 MIN HOT/COLD PACK THERAPEUTIC EXERCISES NEUROMUSCULAR RE-ED MANUAL THERAPY FUNC ACTIVITY 15 MIN HOT/COLD PACK PT RE-EVALUATION THERAPEUTIC EXERCISES NEUROMUSCULAR RE-ED MANUAL THERAPY HOT/COLD PACK THERAPEUTIC EXERCISES NEUROMUSCULAR RE-ED MANUAL THERAPY HOT/COLD PACK THERAPEUTIC EXERCISES NEUROMUSCULAR RE-ED MANUAL THERAPY FUNC ACTIVITY 15 MIN HOT/COLD PACK THERAPEUTIC EXERCISES NEUROMUSCULAR RE-ED MANUAL THERAPY FUNC ACTIVITY 15 MIN HOT/COLD PACK THERAPEUTIC EXERCISES NEUROMUSCULAR RE-ED MANUAL THERAPY FUNC ACTIVITY 15 MIN HOT/COLD PACK THERAPEUTIC EXERCISES NEUROMUSCULAR RE-ED MANUAL THERAPY FUNC ACTIVITY 15 MIN HOT/COLD PACK ELECTRIC STIMULATION UNATT THERAPEUTIC EXERCISES NEUROMUSCULAR RE-ED MANUAL THERAPY FUNC ACTIVITY 15 MIN HOT/COLD PACK ELECTRIC STIMULATION UNATT THERAPEUTIC EXERCISES NEUROMUSCULAR RE-ED MANUAL THERAPY HOT/COLD PACK PT RE-EVALUATION THERAPEUTIC EXERCISES MANUAL THERAPY HOT/COLD PACK THERAPEUTIC EXERCISES MANUAL THERAPY HOT/COLD PACK THERAPEUTIC EXERCISES NEUROMUSCULAR RE-ED MANUAL THERAPY HOT/COLD PACK THERAPEUTIC EXERCISES NEUROMUSCULAR RE-ED MANUAL THERAPY HOT/COLD PACK THERAPEUTIC EXERCISES NEUROMUSCULAR RE-ED MANUAL THERAPY HOT/COLD PACK THERAPEUTIC EXERCISES MANUAL THERAPY HOT/COLD PACK THERAPEUTIC EXERCISES MANUAL THERAPY HOT/COLD PACK THERAPEUTIC EXERCISES NEUROMUSCULAR RE-ED MANUAL THERAPY HOT/COLD PACK THERAPEUTIC EXERCISES MANUAL THERAPY HOT/COLD PACK THERAPEUTIC EXERCISES MANUAL THERAPY PT RE-EVALUATION THERAPEUTIC EXERCISES NEUROMUSCULAR RE-ED MANUAL THERAPY THERAPEUTIC EXERCISES NEUROMUSCULAR RE-ED MANUAL THERAPY HOT/COLD PACK ELECTRIC STIMULATION UNATT PT RE-EVALUATION THERAPEUTIC EXERCISES NEUROMUSCULAR RE-ED MANUAL THERAPY HOT/COLD PACK ELECTRIC STIMULATION UNATT THERAPEUTIC EXERCISES NEUROMUSCULAR RE-ED MANUAL THERAPY HOT/COLD PACK THERAPEUTIC EXERCISES NEUROMUSCULAR RE-ED MANUAL THERAPY HOT/COLD PACK THERAPEUTIC EXERCISES NEUROMUSCULAR RE-ED MANUAL THERAPY HOT/COLD PACK THERAPEUTIC EXERCISES NEUROMUSCULAR RE-ED MANUAL THERAPY HOT/COLD PACK ELECTRIC STIMULATION UNATT THERAPEUTIC EXERCISES NEUROMUSCULAR RE-ED MANUAL THERAPY THERAPEUTIC EXERCISES NEUROMUSCULAR RE-ED MANUAL THERAPY HOT/COLD PACK THERAPEUTIC EXERCISES NEUROMUSCULAR RE-ED MANUAL THERAPY HOT/COLD PACK PT RE-EVALUATION THERAPEUTIC EXERCISES NEUROMUSCULAR RE-ED MANUAL THERAPY THERAPEUTIC EXERCISES NEUROMUSCULAR RE-ED MANUAL THERAPY HOT/COLD PACK ELECTRIC STIMULATION UNATT THERAPEUTIC EXERCISES NEUROMUSCULAR RE-ED MANUAL THERAPY HOT/COLD PACK ELECTRIC STIMULATION UNATT THERAPEUTIC EXERCISES NEUROMUSCULAR RE-ED MANUAL THERAPY HOT/COLD PACK THERAPEUTIC EXERCISES NEUROMUSCULAR RE-ED MANUAL THERAPY HOT/COLD PACK THERAPEUTIC EXERCISES MANUAL THERAPY THERAPEUTIC EXERCISES NEUROMUSCULAR RE-ED MANUAL THERAPY HOT/COLD PACK THERAPEUTIC EXERCISES NEUROMUSCULAR RE-ED MANUAL THERAPY HOT/COLD PACK ELECTRIC STIMULATION UNATT PT RE-EVALUATION THERAPEUTIC EXERCISES NEUROMUSCULAR RE-ED MANUAL THERAPY HOT/COLD PACK ELECTRIC STIMULATION UNATT THERAPEUTIC EXERCISES NEUROMUSCULAR RE-ED MANUAL THERAPY HOT/COLD PACK ELECTRIC STIMULATION UNATT THERAPEUTIC EXERCISES NEUROMUSCULAR RE-ED MANUAL THERAPY HOT/COLD PACK ELECTRIC STIMULATION UNATT THERAPEUTIC EXERCISES NEUROMUSCULAR RE-ED MANUAL THERAPY HOT/COLD PACK ELECTRIC STIMULATION UNATT THERAPEUTIC EXERCISES NEUROMUSCULAR RE-ED MANUAL THERAPY HOT/COLD PACK ELECTRIC STIMULATION UNATT THERAPEUTIC EXERCISES NEUROMUSCULAR RE-ED MANUAL THERAPY HOT/COLD PACK ELECTRIC STIMULATION UNATT THERAPEUTIC EXERCISES NEUROMUSCULAR RE-ED MANUAL THERAPY HOT/COLD PACK ELECTRIC STIMULATION UNATT PT EVALUATION THERAPEUTIC EXERCISES MANUAL THERAPY HOT/COLD PACK ELECTRIC STIMULATION UNATT Advance Directives Directive Yes / No Effective Date File Name No Information Encounters Encounter Description Practice Location Reason(s) For Visit Diagnoses Date Provider Providers Copied on Encounter [address], [id number], tel:[phone] [place] No Information 0 3 Marie Thu. [address] [place] [address], [address], [facility], . tel:[phone] Referring Provider: Jorge Olivia, [address] [place] [address] [address], [place], [address]. tel:[phone], [id number], tel:[phone] [place] No Information 3 Marie Thu. [address] [place] [address], [facility] [place] [address], [facility], . tel:[phone] Referring Provider: Jorge Olivia, [address] [place] [address] [address], [address]. tel:[phone], [id number], tel:[phone] [place] No Information 3 Marie Thu. [address] [facility], [facility] [place] [address], [place], [facility], . tel:[phone] Referring Provider: Jorge Olivia, [address] [place] [address] [address], [place], [address]. tel:[phone] [facility] [address], [place], [place], [id number], [place] tel:[phone] [place] No Information 3 Marie Thu. [address] [place] [address], [address], [facility], . tel:[phone] Referring Provider: Jorge Olivia, [address] [place] [address] [address], [place], [address]. tel:[phone], [place], [place], [address], [place] tel:[phone] [place] No Information 3 Marie Thu. [address] [place] [address], [address], [facility], . tel:[phone] Referring Provider: Jorge Olivia [address] [place] [address] [address], [place], [address]. tel:[phone], [place], [place], [address], [place] tel:[phone] [place] No Information 3 Marie Thu. [address] [place] [address], [address], [facility], . tel:[phone] Referring Provider: Jorge Olivia, [address] [place] [address] [address], [place], [address]. tel:[phone] [address], [place], [address], [place] tel:[phone] [place] No Information 3 Marie Thu. [address] [place] [address], [address], [facility], . tel:[phone] Referring Provider: Jorge Olivia, [address] [place] [address] [address], [place], [address]. tel:[phone], [id number], tel:[phone] [place] No Information 3 Marie Thu. [address] [place] [address], [address], [facility], . tel:[phone] Referring Provider: Jorge Olivia, [address] [place] [address] [address], [place], [address]. tel:[phone], [place], [place], [address], tel:[phone] [place] No Information 0 3 Marie Thu. [address] [place] [address], [address], [facility], . tel:[phone] Referring Provider: Jorge Olivia, [address] [place] [address] [address], [place], [address]. tel:[phone], [id number], tel:[phone] [place] No Information 0 3 Marie Thu. [address] [place] [address], [address], [facility], . tel:[phone] Referring Provider: Jorge Olivia, [address] [place] [address] [address], [place], [address]. tel:[phone], [id number], tel:[phone] [place] No Information 3 Marie Thu. [address] [place] [address], [address], [facility], . tel:[phone] Referring Provider: Jorge Olivia, [address] [place] [address] [address], [place], [address]. tel:[phone] [place] [address] [facility] [address], [place], [place], [address], tel:[phone] [place] No Information 3 Marie Thu. [address] [place] [address], [address], [place], [facility], [place]. tel:[phone] Referring Provider: Jorge Olivia, [address] [place] [address] [address], [place], [address]. tel:[phone], [place], [place], [address], tel:[phone] [place] No Information 3 Marie Thu. [address] [place] [address], [address], [place], [facility], [place]. tel:[phone] Referring Provider: Jorge Olivia, [address] [place] [address] [address], [place], [address]. tel:[phone] [place] [address], [place], [place], [address], tel:[phone] [place] No Information 3 Marie Thu. [address] [place] [address], [address], [facility], [place]. tel:[phone] Referring Provider: Jorge Olivia, [address] [place] [address] [address], [place], [address]. tel:[phone] [address], [place], [place], [address], [place] tel:[phone] [place] No Information 3 Marie Thu. [address] [place] [address], [address], [place], [facility], [place]. tel:[phone] Referring Provider: Jorge Olivia, [address] [place] [address] [address], [place], [address]. tel:[phone], [place], [place], [address], tel:[phone] [place] No Information 3 Marie Thu. [address] [place] [address], [address], [facility], . tel:[phone] Referring Provider: Jorge Olivia [address] [place] [address] [address], [place], [address]. tel:[phone], [place], [place], [address], tel:[phone] [place] No Information 7-201 3 Marie Thu. [address] [place] [address], [address], [place], [facility], . tel:[phone] Referring Provider: Jorge Olivia, [address] [place] [address] [address], [place], [address]. tel:[phone], [place], [place], [address], [place] tel:[phone] [place] No Information 5-201 3 Marie Thu. [address] [place] [address], [address], [facility], . tel:[phone] Referring Provider: Jorge Olivia [address] [place] [address] [address], [place], [address]. tel:[phone], [place], [place], [address], tel:[phone] [place] No Information 0 3-201 3 Marie Thu. [address] [place] [address], [address], [facility], . tel:[phone] Referring Provider: Jorge Olivia [address] [place] [address] [address], [place], [address]. tel:[phone] [address], [place], [address], [place] tel:[phone] [place] No Information 0 1-201 3 Marie Thu. [address] [place] [address], [address], [place], [address], . tel:[phone] Referring Provider: Jorge Olivia [address] [place] [address] [address], [place], [address]. tel:[phone] [address], [place], [place], [address], [place] tel:[phone] [place] No Information Jaciel-2 7-201 3 Marie Thu. [address] [place] [address], [address], [facility], . tel:[phone] Referring Provider: Jorge Olivia, [address] [place] [address] [address], [place], [address]. tel:[phone] [address], [place], [place], [address], tel:[phone] [place] No Information Jaciel-2 6-201 3 Marie Thu. [address] [place] [address], [address], [facility], . tel:[phone] Referring Provider: Jorge Olivia [address] [place] [address] [address], [place], [address]. tel:[phone], [place], [address], [place] tel:[phone] [place] No Information Jaciel-2 4-201 3 Marie Thu. [address] [place] [address], [address], [facility], . tel:[phone] Referring Provider: Jorge Olivia [address] [place] [address] [address], [place], [address]. tel:[phone] [address], [place], [place], [address], [place] tel:[phone] [place] No Information Jaciel-2 0-201 3 Marie Thu. [address] [place] [address], [address], [facility], . tel:[phone] Referring Provider: Jorge Olivia [address] [place] [address] [address], [place], [address]. tel:[phone], [place], [place], [address], tel:[phone] [place] No Information 9-201 3 Marie Thu. [address] [place] [address], [address], [facility], . tel:[phone] Referring Provider: Jorge Olivia, [address] [place] [address] [address], [place], [address]. tel:[phone], [place], [place], [address], tel:[phone] [place] No Information 7-201 3 Marie Thu. [address] [place] [address], [address], [facility], . tel:[phone] Referring Provider: Jorge Olivia, [address] [place] [address] [address], [place], [facility]. tel:[phone], [id number], tel:[phone] [place] No Information 4-201 3 Marie Thu. [address] [place] [address], [address], [facility], . tel:[phone] Referring Provider: Jorge Olivia, [address] [place] [address] [address], [place], [address]. tel:[phone], [id number], tel:[phone] [place] No Information 2-201 3 Marie Thu. [address] [place] [address], [address], [facility], . tel:[phone] Referring Provider: Jorge Olivia, [address] [place] [address] [address], [place], [address]. tel:[phone] [address], [place], [address], tel:[phone] [place] No Information Jaciel-1 0-201 3 Remi Isma. [address] [place] [address], [address], [place], [facility], . tel:[phone] Referring Provider: Jorge Olivia, [address] [place] [address] [address], [place], [address]. tel:[phone], [place], [place], [address], tel:[phone] [place] No Information May-2 0-201 3 Bianka Victoriano. [address] [place] [address], [address], [place], [facility], [place]. tel:[phone] Referring Provider: Jorge Olivia [address] [place] [address] [address], [place], [address]. tel:[phone], [place], [place], [address], [place] tel:[phone] [place] No Information January-1 7-201 3 Marie Thu. [address] [place] [address], [address], [facility], [place]. tel:[phone] Referring Provider: Jorge Olivia [address] [place] [address] [address], [place], [address]. tel:[phone], [place], [place], [address], [place] tel:[phone] [place] No Information January-1 4-201 3 Marie Thu. [address] [place] [address], [address], [place], [facility], [place]. tel:[phone] Referring Provider: Jorge Olivia [address] [place] [address] [address], [place], [address]. tel:[phone], [place], [place], [address], tel:[phone] [place] No Information May-0 9-201 3 Marie Thu. [address] [place] [address], [address], [facility], [place]. tel:[phone] Referring Provider: Jorge Olivia, [address] [place] [address] [address], [place], [address]. tel:[phone], [place], [place], [address], tel:[phone] [place] No Information May-0 7-201 3 Marie Thu. [address] [place] [address], [address], [facility], . tel:[phone] Referring Provider: Jorge Olivia [address] [place] [address] [address], [place], [address]. tel:[phone] [address], [place], [address], tel:[phone] [place] No Information May-0 3-201 3 Marie Thu. [address] [place] [address], [address], [facility], . tel:[phone] Referring Provider: Jorge Olivia [address] [place] [address] [address], [place], [address]. tel:[phone], [id number], tel:[phone] [place] No Information May-0 1-201 3 Marie Thu. [address] [place] [address], [address], [facility], . tel:[phone] Referring Provider: Jorge Olivia [address] [place] [address] [address], [place], [address]. tel:[phone] [address], [place], [address], tel:[phone] [place] No Information Apr-2 6-201 3 Marie Thu. [address] [place] [address], [address], [facility], . tel:[phone] Referring Provider: Jorge Olivia [address] [place] [address] [address], [place], [address]. tel:[phone], [place], [place], [address], [place] tel:[phone] [place] No Information Dec-2 3-201 3 Marie Thu. [address] [place] [address], [address], [facility], . tel:[phone] Referring Provider: Jorge Olivia, [address] [place] [address] [address], [place], [address]. tel:[phone], [place], [place], [address], [place] tel:[phone] [place] No Information Dec- 9- 3 Marie Thu. [address] [place] [address], [address], [facility], . tel:[phone] Referring Provider: Jorge Olivia [address] [place] [address] [address], [place], [address]. tel:[phone] [address], [place], [place], [address], [place] tel:[phone] [place] No Information Dec- 6- 3 Marie Thu. [address] [place] [address], [address], [facility], [place]. tel:[phone] Referring Provider: Jorge Olivia [address] [place] [address] [address], [place], [address]. tel:[phone] [address], [place], [place], [address], [place] tel:[phone] [place] No Information 2- 3 Amrie Thu. [address] [place] [address], [address], [place], [address], [place]. tel:[phone] Referring Provider: Jorge Olivia, [address] [place] [address] [address], [place], [address]. tel:[phone], [facility] [place], [address], tel:[phone] [place] No Information Apr-0 8-201 3 Marie Thu. [address] [place] [address], [address], [facility], . tel:[phone] Referring Provider: Jorge Olivia, [address] [place] [address] [address], [place], [address]. tel:[phone], [address], tel:[phone] [place] No Information Apr-0 3-201 3 Marie Thu. [address] [place] [address], [address], [facility], . tel:[phone] Referring Provider: Jorge Olivia, [address] [place] [address] [address], [place], [facility]. tel:[phone], [address], tel:[phone] [place] No Information Apr-0 2-201 3 Marie Thu. [address] [place] [address], [address], [facility], . tel:[phone] Referring Provider: Jorge Olivia, [address] [place] [address] [address], [place], [address]. tel:[phone], [address], tel:[phone] [place] No Information Mar-2 5-201 3 Marie Thu. [address] [place] [address], [address], [facility], . tel:[phone] Referring Provider: Jorge Olivia, [address] [place] [address] [address], [place], [address]. tel:[phone], [id number], tel:[phone] [place] No Information Mar-2 1-201 3 Alvarez Ginger. [address] [facility], [address], [place], [facility], [place]. tel:[phone] Referring Provider: Jorge Olivia, [address] [place] [address] [address], [place], [address]. tel:[phone], [place], [place], [address], [place] tel:[phone] [place] No Information Mar-2 0-201 3 Marie Thu. [address] [place] [address], [address], [place], [facility], [place]. tel:[phone] Referring Provider: Jorge Olivia [address] [place] [address] [address], [place], [address]. tel:[phone], [id number], [place] tel:[phone] [place] No Information Mar-1 8-201 3 Marie Thu. [address] [place] [address], [address], [facility], [place]. tel:[phone] Referring Provider: Jorge Olivia [address] [place] [address] [address], [place], [address]. tel:[phone], [place], [place], [address], [place] tel:[phone] [place] No Information Mar-1 5-201 3 Marie Thu. [address] [place] [address], [address], [facility], [place]. tel:[phone] Referring Provider: Jorge Olivia [address] [place] [address] [address], [place], [address]. tel:[phone] [address], [place], [place], [address], [place] tel:[phone] [place] No Information Mar-1 3-201 3 Marie Thu. [address] [place] [address], [address], [place], [address], [place]. tel:[phone] Referring Provider: Jorge Olivia, [address] [place] [address] [address], [place], [address]. tel:[phone], [address], tel:[phone] [place] No Information Mar-1 1-201 3 Marie Thu. [address] [place] [address], [address], [facility], . tel:[phone] Referring Provider: Jorge Olivia, [address] [place] [address] [address], [place], [address]. tel:[phone], [id number], tel:[phone] [place] No Information Mar-0 8-201 3 Marie Thu. [address] [place] [address], [address], [place], [facility], . tel:[phone] Referring Provider: Jorge Olivia, [address] [place] [address] [address], [place], [address]. tel:[phone], [id number], tel:[phone] [place] No Information Mar-0 6-201 3 Marie Thu. [address] [place] [address], [address], [place], [facility], . tel:[phone] Referring Provider: Jorge Olivia, [address] [place] [address] [address], [place], [address]. tel:[phone], [id number], tel:[phone] [place] Pain in joint involving shoulder region Mar-0 4-201 3 Marie Thu. [address] [place] [address], [address], [place], [facility], . tel:[phone] Referring Provider: Jorge Olivia, [address] [address], [place], [address]. tel:[phone] Family History Family Member Type Diagnosis Age At Onset No Information Payers Payer name Insurance type Covered libertarian ID Authorramseya tifunmilayo(s) [facility] [place] [id number] Social History Type Description Quantity Date Captured Comments Sex Male Smoking Status No Information Chief Complaint And Reason For Visit No Information Reason For Referral Reason For Referral No Information History Of Present Illness Encounter Date Complaint History Of Prese nt Illness No Information Functional Status Date Functional Assessmen t No Information Instructions Date Instruction Additional Infor mation No Information Assessments Type Assessment Date No Information Patient Care Teams Name Effective Dates (start - stop) Status Members No Information
--- OUTSIDE RECORDS SUMMARY | 2013-05-09 03:00 | XMS_ITS | Continuity of Care Document ---
Author Organization [facility] Address [address] [place] [address] [address] [place] [address] Phone Care Team Providers Care Foot Miter Operator Name Role Phone Frank BOYThu Unavailable Unavailable [...] Diagnoses Date Provider Providers Copied on Encounter [address], [id number], tel:[phone] [place] No Information 0 3 Marie Thu. [address] [place] [address], [address], [facility], . tel:[phone] Referring Provider: Jorge Olivia, [address] [place] [address] [address], [address]. tel:[phone], [id number], tel:[phone] [place] No Information 3 Marie Thu. [address] [place] [address], [facility] [address], [place], [facility], . tel:[phone] Referring Provider: Jorge Olivia, [address] [place] [address] [address], [address]. tel:[phone], [id number], tel:[phone] [place] No Information 3 Marie Thu. [address] [facility], [facility] [address], [place], [facility], . tel:[phone] Referring Provider: Jorge Olivia, [address] [place] [address] [address], [address]. tel:[phone] [facility] [address], [place], [place], [id number], [place] tel:[phone] [place] No Information 3 Marie Thu. [address] [place] [address], [address], [place], [facility], . tel:[phone] Referring Provider: Jorge Olivia, [address] [place] [address] [address], [place], [address]. tel:[phone] [address], [place], [place], [id number], [place] tel:[phone] [place] No Information 3 Marie Thu. [address] [place] [address], [address], [place], [facility], . tel:[phone] Referring Provider: Jorge Olivia [address] [place] [address] [address], [place], [address]. tel:[phone], [place], [place], [id number], [place] tel:[phone] [place] No Information 3 Marie Thu. [address] [place] [address], [address], [place], [facility], . tel:[phone] Referring Provider: Jorge Olivia, [address] [place] [address] [address], [place], [address]. tel:[phone], [place], [id number], [place] tel:[phone] [place] No Information 3 Marie Thu. [address] [place] [address], [address], [place], [facility], . tel:[phone] Referring Provider: Jorge Olivia, [address] [place] [address] [address], [place], [address]. tel:[phone], [id number], tel:[phone] [place] No Information 3 Marie Thu. [address] [place] [address], [address], [place], [facility], . tel:[phone] Referring Provider: Jorge Olivia, [address] [place] [address] [address], [place], [address]. tel:[phone], [place], [place], [id number], tel:[phone] [place] No Information 0 3 Marie Thu. [address] [place] [address], [address], [place], [facility], . tel:[phone] Referring Provider: Jorge Olivia, [address] [place] [address] [address], [place], [address]. tel:[phone], [id number], tel:[phone] [place] No Information 0 3 Marie Thu. [address] [place] [address], [address], [place], [facility], . tel:[phone] Referring Provider: Jorge Olivia, [address] [place] [address] [address], [place], [address]. tel:[phone], [id number], tel:[phone] [place] No Information 3 Marie Thu. [address] [place] [address], [address], [place], [facility], . tel:[phone] Referring Provider: Jorge Olivia, [address] [place] [address] [address], [place], [address]. tel:[phone] [address] [facility] [address], [place], [place], [id number], tel:[phone] [place] No Information 3 Marie Thu. [address] [place] [address], [address], [place], [facility], [place]. tel:[phone] Referring Provider: Jorge Olivia, [address] [place] [address] [address], [place], [address]. tel:[phone], [place], [place], [id number], tel:[phone] [place] No Information 3 Marie Thu. [address] [place] [address], [address], [place], [facility], [place]. tel:[phone] Referring Provider: Jorge Olivia, [address] [place] [address] [address], [place], [address]. tel:[phone] [address], [place], [place], [id number], tel:[phone] [place] No Information 3 Marie Thu. [address] [place] [address], [address], [place], [facility], [place]. tel:[phone] Referring Provider: Jorge Olivia, [address] [place] [address] [address], [place], [address]. tel:[phone] [address], [place], [place], [id number], [place] tel:[phone] [place] No Information 3 Marie Thu. [address] [place] [address], [address], [place], [facility], [place]. tel:[phone] Referring Provider: Jorge Olivia, [address] [place] [address] [address], [place], [address]. tel:[phone], [place], [place], [id number], tel:[phone] [place] No Information 3 Marie Thu. [address] [place] [address], [address], [place], [facility], . tel:[phone] Referring Provider: Jorge Olivia [address] [place] [address] [address], [place], [address]. tel:[phone], [place], [place], [id number], tel:[phone] [place] No Information 7-201 3 Marie Thu. [address] [place] [address], [address], [place], [facility], . tel:[phone] Referring Provider: Jorge Olivia, [address] [place] [address] [address], [place], [address]. tel:[phone], [place], [place], [id number], [place] tel:[phone] [place] No Information 5-201 3 Marie Thu. [address] [place] [address], [address], [place], [facility], . tel:[phone] Referring Provider: Jorge Olivia [address] [place] [address] [address], [place], [address]. tel:[phone], [place], [place], [id number], tel:[phone] [place] No Information 0 3-201 3 Marie Thu. [address] [place] [address], [address], [place], [facility], . tel:[phone] Referring Provider: Jorge Olivia [address] [place] [address] [address], [place], [address]. tel:[phone], [id number], [place] tel:[phone] [place] No Information 0 1-201 3 Marie Thu. [address] [place] [address], [address], [place], [address], . tel:[phone] Referring Provider: Jorge Olivia [address] [place] [address] [address], [place], [address]. tel:[phone] [address], [place], [place], [id number], [place] tel:[phone] [place] No Information Jaciel-2 7-201 3 Marie Thu. [address] [place] [address], [address], [place], [facility], . tel:[phone] Referring Provider: Jorge Olivia, [address] [place] [address] [address], [place], [address]. tel:[phone] [address], [place], [place], [id number], tel:[phone] [place] No Information Jaciel-2 6-201 3 Marie Thu. [address] [place] [address], [address], [place], [facility], . tel:[phone] Referring Provider: Jorge Olivia [address] [place] [address] [address], [place], [address]. tel:[phone], [id number], [place] tel:[phone] [place] No Information Jaciel-2 4-201 3 Marie Thu. [address] [place] [address], [address], [place], [facility], . tel:[phone] Referring Provider: Jorge Olivia [address] [place] [address] [address], [place], [address]. tel:[phone] [address], [place], [place], [id number], [place] tel:[phone] [place] No Information Jaciel-2 0-201 3 Marie Thu. [address] [place] [address], [address], [place], [facility], . tel:[phone] Referring Provider: Jorge Olivia [address] [place] [address] [address], [place], [address]. tel:[phone], [place], [place], [id number], tel:[phone] [place] No Information 9-201 3 Marie Thu. [address] [place] [address], [address], [place], [facility], . tel:[phone] Referring Provider: Jorge Olivia, [address] [place] [address] [address], [place], [address]. tel:[phone], [place], [place], [address], tel:[phone] [place] No Information 7-201 3 Marie Thu. [address] [place] [address], [address], [place], [facility], . tel:[phone] Referring Provider: Jorge Olivia, [address] [place] [address] [address], [place], [facility]. tel:[phone], [id number], tel:[phone] [place] No Information 4-201 3 Marie Thu. [address] [place] [address], [address], [place], [facility], . tel:[phone] Referring Provider: Jorge Olivia, [address] [place] [address] [address], [place], [address]. tel:[phone], [id number], tel:[phone] [place] No Information 2-201 3 Marie Thu. [address] [place] [address], [address], [place], [facility], . tel:[phone] Referring Provider: Jorge Olivia, [address] [place] [address] [address], [place], [address]. tel:[phone] [address], [place], [id number], tel:[phone] [place] No Information Jaciel-1 0-201 3 Remi Isma. [address] [place] [address], [address], [place], [facility], . tel:[phone] Referring Provider: Jorge Olivia, [address] [place] [address] [address], [place], [address]. tel:[phone], [place], [place], [address], tel:[phone] [place] No Information May-2 0-201 3 Bianka Victoriano. [address] [place] [address], [address], [place], [facility], [place]. tel:[phone] Referring Provider: Jorge Olivia [address] [place] [address] [address], [place], [address]. tel:[phone], [place], [place], [address], [place] tel:[phone] [place] No Information January-1 7-201 3 Marie Thu. [address] [place] [address], [address], [place], [facility], [place]. tel:[phone] Referring Provider: Jorge Olivia [address] [place] [address] [address], [place], [address]. tel:[phone] [address], [place], [place], [id number], [place] tel:[phone] [place] No Information January-1 4-201 3 Marie Thu. [address] [place] [address], [address], [place], [facility], [place]. tel:[phone] Referring Provider: Jorge Olivia [address] [place] [address] [address], [place], [address]. tel:[phone], [place], [place], [address], tel:[phone] [place] No Information May-0 9-201 3 Marie Thu. [address] [place] [address], [address], [place], [facility], [place]. tel:[phone] Referring Provider: Jorge Olivia, [address] [place] [address] [address], [place], [address]. tel:[phone], [place], [place], [address], tel:[phone] [place] No Information May-0 7-201 3 Marie Thu. [address] [place] [address], [address], [place], [facility], . tel:[phone] Referring Provider: Jorge Olivia [address] [place] [address] [address], [place], [address]. tel:[phone], [place], [address], tel:[phone] [place] No Information May-0 3-201 3 Marie Thu. [address] [place] [address], [address], [place], [facility], . tel:[phone] Referring Provider: Jorge Olivia [address] [place] [address] [address], [place], [address]. tel:[phone], [id number], tel:[phone] [place] No Information May-0 1-201 3 Marie Thu. [address] [place] [address], [address], [place], [facility], . tel:[phone] Referring Provider: Jorge Olivia [address] [place] [address] [address], [place], [address]. tel:[phone] [address], [place], [id number], tel:[phone] [place] No Information Apr-2 6-201 3 Marie Thu. [address] [place] [address], [address], [place], [facility], . tel:[phone] Referring Provider: Jorge Olivia [address] [place] [address] [address], [place], [address]. tel:[phone] [address], [place], [place], [address], [place] tel:[phone] [place] No Information Dec-2 3-201 3 Marie Thu. [address] [place] [address], [address], [place], [facility], . tel:[phone] Referring Provider: Jorge Olivia, [address] [place] [address] [address], [place], [address]. tel:[phone], [place], [place], [address], [place] tel:[phone] [place] No Information Dec- 9- 3 Marie Thu. [address] [place] [address], [address], [place], [facility], . tel:[phone] Referring Provider: Jorge Olivia [address] [place] [address] [address], [place], [address]. tel:[phone], [place], [place], [address], [place] tel:[phone] [place] No Information Dec- 6- 3 Marie Thu. [address] [place] [address], [address], [place], [facility], [place]. tel:[phone] Referring Provider: Jorge Olivia [address] [place] [address] [address], [place], [address]. tel:[phone], [place], [place], [id number], [place] tel:[phone] [place] No Information 2- 3 Marie Thu. [address] [place] [address], [address], [place], [address], [place]. tel:[phone] Referring Provider: Jorge Olivia, [address] [place] [address] [address], [place], [address]. tel:[phone], [facility] [place], [id number], tel:[phone] [place] No Information Apr-0 8-201 3 Marie Thu. [address] [place] [address], [address], [place], [facility], . tel:[phone] Referring Provider: Jorge Olivia, [address] [place] [address] [address], [place], [address]. tel:[phone], [id number], tel:[phone] [place] No Information Apr-0 3-201 3 Marie Thu. [address] [place] [address], [address], [place], [facility], . tel:[phone] Referring Provider: Jorge Olivia, [address] [place] [address] [address], [place], [facility]. tel:[phone], [id number], tel:[phone] [place] No Information Apr-0 2-201 3 Marie Thu. [address] [place] [address], [address], [facility], . tel:[phone] Referring Provider: Jorge Olivia, [address] [place] [address] [address], [place], [address]. tel:[phone], [id number], tel:[phone] [place] No Information Mar-2 5-201 3 Marie Thu. [address] [place] [address], [address], [place], [facility], . tel:[phone] Referring Provider: Jorge Olivia, [address] [place] [address] [address], [place], [address]. tel:[phone], [id number], tel:[phone] [place] No Information Mar-2 1-201 3 Alvarez Ginger. [address] [facility], [address], [place], [place], [facility], [place]. tel:[phone] Referring Provider: Jorge Olivia, [address] [place] [address] [address], [place], [address]. tel:[phone], [place], [place], [address], [place] tel:[phone] [place] No Information Mar-2 0-201 3 Marie Thu. [address] [place] [address], [address], [place], [facility], [place]. tel:[phone] Referring Provider: Jorge Olivia [address] [place] [address] [address], [place], [address]. tel:[phone], [id number], [place] tel:[phone] [place] No Information Mar-1 8-201 3 Marie Thu. [address] [place] [address], [address], [place], [facility], [place]. tel:[phone] Referring Provider: Jorge Olivia [address] [place] [address] [address], [place], [address]. tel:[phone], [place], [place], [address], [place] tel:[phone] [place] No Information Mar-1 5-201 3 Marie Thu. [address] [place] [address], [address], [place], [facility], [place]. tel:[phone] Referring Provider: Jorge Olivia [address] [place] [address] [address], [place], [address]. tel:[phone] [address], [place], [place], [id number], [place] tel:[phone] [place] No Information Mar-1 3-201 3 Marie Thu. [address] [place] [address], [address], [place], [address], [place]. tel:[phone] Referring Provider: Jorge Olivia, [address] [place] [address] [address], [place], [address]. tel:[phone], [id number], tel:[phone] [place] No Information Mar-1 1-201 3 Marie Thu. [address] [place] [address], [address], [place], [facility], . tel:[phone] Referring Provider: Jorge Olivia, [address] [place] [address] [address], [place], [address]. tel:[phone], [id number], tel:[phone] [place] No Information Mar-0 8-201 3 Marie Thu. [address] [place] [address], [address], [place], [facility], . tel:[phone] Referring Provider: Jorge Olivia, [address] [place] [address] [address], [place], [address]. tel:[phone], [id number], tel:[phone] [place] No Information Mar-0 6-201 3 Marie Thu. [address] [place] [address], [address], [place], [facility], . tel:[phone] Referring Provider: Jorge Olivia, [address] [place] [address] [address], [place], [address]. tel:[phone], [id number], tel:[phone] [place] Pain in joint involving shoulder region Mar-0 4-201 3 Marie Thu. [address] [place] [address], [address], [place], [facility], . tel:[phone] Referring Provider: Jorge Olivia, [address] [address], [place], [address]. tel:[phone] Family History Family Member Type Diagnosis Age At Onset No Information Payers Payer name Insurance type Covered democrat ID Authorramseya tifunmilayo(s) [facility] [id number] Social History Type Description Quantity Date Captured [...]
--- NOTE | ~2025-05-09 | XR_ITS ---
EXAMINATION: XR finger 2nd LT min 2V, XR finger 3rd LT min 2V DATE: 05/09/2025 12:18 INDICATION: Pain at the left second and third digits TECHNIQUE: 1. Dorsal palmar, lateral and oblique views of the left second digit were obtained. 2. Dorsal palmar, lateral and oblique views of the left third digit were obtained. COMPARISON: None FINDINGS: Normal alignment at the left second and third digits and remainder the visualized left hand. No fracture. Joint spaces are normal. No erosions. Mild soft tissue swelling at the second and third lesser degree third digits. IMPRESSION: 1. No osseous abnormality at the left second and third digits are visualized portions of the left hand Reviewed, dictated and finalized at location A. IMPRESSION: 1. No osseous abnormality at the left second and third digits are visualized po rtions of the left hand
--- OUTSIDE RECORDS SUMMARY | 2025-05-09 10:35 | XMS_ITS | Encounter Summary ---
Author Organization [facility] Address [address] [facility] [place] [address] Care Team Providers Care Lubricating Specialist Name Role Phone Sarath Edgar MD Primary Care Provider [phone] Jorge Olivia DO Unavailable [phone] Luana Mendez MD Unavailable [phone] Eun Duarte MD Unavailable Randa Davis DPSlime Unavailable [phone] Encounter Details Date Type Department Care Team (Late st Contact Info) Description 07/22/2013 [facility] Outpatient Visit [facility] - Endocrinology [address] [address] [place] [address] [address] Social History Tobacco Use Types Packs/Day Years Used Date Smoking Tobacco: Former Cigarettes Q uit: 02/24/2012 Alcohol Use Standard Drinks/Week Comments No 0 (1 standard drink = 0.6 oz pur e alcohol) Sex and Gender Information Value Date Recorded Sex Assigned at Male 12/05/2020 2:14 PM CDT Legal Sex Male 1:53 PM VICE PRESIDENT SAFETY Gender Identity Male 12/05/2020 2:14 PM CDT Sexual Orientation Straight 12/05/2020 2: 14 PM CDT documented as of this encounter Plan of Treatment Upcoming Encounters Date Type Department Care Team (Late st Contact Info) Description 06/18/2025 2:40 PM CDT Office Visit [facility] - Endocrinology [address] [place] [phone] Gayla Warner, LAY OUT MACHINE OPERATOR-[facility] [address] [phone] 09/23/2025 3:20 PM VICE PRESIDENT SAFETY Office Visit [facility] - Endocrinology [address] [place] [address] [place]endez [place] [id number] [place] [address] documented as of this encounter Visit Diagnoses Not on filedocumented in this encounter Care Teams Lubricating Specialist Relationship Specialty Start Date End Date Sarath Edgar MD [address] [place] [address] PCP - General 03/18/12 Jorge Olivia DO [address] [place] [phone] Orthopedic Surgery 12/03/12 06/20/16 Luana Mendez MD [address] [place] [address] Endocrinology 04/05/15 [place] [address] [facility] [address] [place] [address] Ophthalmology 06/21/16 Randa Davis DPM [address] [facility] [address] [place] [address] Podiatry 06/21/16 documented as of this encounter
--- OUTSIDE RECORDS SUMMARY | 2025-05-09 10:35 | XMS_ITS | Clinical Summary ---
Author Organization [facility] Address [address] [place] [address] Care Team Providers Care Liquified Natural Gas Specialist Name Role Phone Sarath Edgar MD [...] Site/Laterality Comments DENTAL SURGERY 09/03/1990 - 09/02/1991 [place] Teeth SHOULDER ARTHROSCOPY W/ SUPERIOR LABRAL ANTERIOR POSTERIOR LESION REPAIR 09/03/2004 - 09/02/2005 Left Shoulder SLAP Tear Medical History Medical History Date Comments Type 2 diabetes mellitus Low back pain Family History Medical History [...] on file Legal Sex Male 11:59 PM SCRAPER MEAT Gender Identity Male 04/22/2021 10:24 AM CDT Sexual Orientation Straight 04/22/2021 10 :24 AM CDT 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 Author CCM Chronic Pain Care Plan Chronic Care Management No Constance Kellogg, MICHAELA Note: Problem: Chronic Pain Goals: 1. Minimize further functional decline 2. Maximize quality of life 3. Control pain Strategies: - Activity/exercise program recommendation - Conservative stepwise pain medicine strategy with multi-disciplinary approach - Recommend healthy lifestyle strategies and compensatory methods as needed Reduce the likelihood of falling Lifestyle No Constance Kellogg, MICHAELA Note: Below are four things you [...] on stairs Contact your local community or [facility] for information on exercise, fall prevention programs, or options for improving home safety. Insurance [facility] CHOICE [facility] [employer] [place] [address] [facility] ACCESS CHOICE Care Teams Liquified Natural Gas Specialist Relationship Specialty Start Date End Date Sarath Edgar MD PCP - General 11/07/07
--- OUTSIDE RECORDS SUMMARY | 2025-05-09 10:35 | XMS_ITS | Encounter Summary ---
Author Organization [facility] Address [address] [place] [place] [address] Care Team Providers Care Department Head [employer] Name Role Phone Sarath Edgar MD Primary Care Provider [phone] Jorge Olivia DO Unavailable [phone] Luana Mendez MD Unavailable [phone] Eun Duarte MD Unavailable [phone] Randa Davis DPSlime Unavailable [phone] Encounter Details Date Type Department Care Team (Late st Contact Info) Description 03/17/2012 [facility] Outpatient Visit EXTERNAL NON-[facility] DE[place]endez [place] [address] [place] [address] [place] [address] Social History Tobacco Use Types Packs/Day Years Used Date Smoking Tobacco: Never Assessed Sex and Gender Information Value Date Recorded Sex Assigned at Male 12/05/2020 2:14 PM CDT Legal Sex Male 1:53 PM HEALTHCARE ANALYST Gender Identity Male 12/05/2020 2:14 PM CDT Sexual Orientation Straight 12/05/2020 2: 14 PM CDT documented as of this encounter Plan of Treatment Upcoming Encounters Date Type Department Care Team (Late st Contact Info) Description 06/18/2025 2:40 PM CDT Office Visit [facility] - Endocrinology [address] [place] [address], [address] [place] [phone] Gayla Warner, FURNACE STOCK INSPECTOR-FITNESS INSTRUCTOR [address] [phone] 09/23/2025 3:20 PM HEALTHCARE ANALYST Office Visit [facility] - Endocrinology [address] [phone] [place] [address] [address] documented as of this encounter Visit Diagnoses Not on filedocumented in this encounter Care Teams Department Head [employer] Relationship Specialty Start Date End Date Sarath Edgar MD [address] [place] [address] PCP - General 03/18/12 Jorge Olivia DO [address] [place] [address] Orthopedic Surgery 12/03/12 06/20/16 Luana Mendez MD [address] [place] [address] Endocrinology 04/05/15 [place] [address] [facility] [address] [place] [phone] Ophthalmology 06/21/16 Randa Davis DPM [address] [facility] [address] SOLIS [address] [place] [address] Podiatry 06/21/16 documented as of this encounter
--- OUTSIDE RECORDS SUMMARY | 2025-05-09 10:35 | XMS_ITS | Encounter Summary ---
Author Organization [facility] Address [address] [facility] [place] [address] Care Team Providers Care Group Leader Semiconductor Testing Name Role Phone Sarath Edgar MD Primary Care Provider [phone] Jorge Olivia DO Unavailable [phone] Luana Mendez MD Unavailable Eun Duarte MD Unavailable [phone] Randa Davis DPSlime Unavailable [phone] Encounter Details Date Type Department Care Team (Late st Contact Info) Description 07/18/2013 [facility] Outpatient Visit [facility] - Endocrinology [address] [address] [place] [address] [address] Social History Tobacco Use Types Packs/Day Years Used Date Smoking Tobacco: Former Cigarettes Q uit: 02/24/2012 Alcohol Use Standard Drinks/Week Comments No 0 (1 standard drink = 0.6 oz pur e alcohol) Sex and Gender Information Value Date Recorded Sex Assigned at Male 12/05/2020 2:14 PM CDT Legal Sex Male 1:53 PM DIRECTOR IT Gender Identity Male 12/05/2020 2:14 PM CDT Sexual Orientation Straight 12/05/2020 2: 14 PM CDT documented as of this encounter Plan of Treatment Upcoming Encounters Date Type Department Care Team (Late st Contact Info) Description 06/18/2025 2:40 PM CDT Office Visit [facility] - Endocrinology [address] [place] [phone] Gayla Warner, ELECTRICAL MAINTENANCE MAN[facility] [address] [phone] 09/23/2025 3:20 PM DIRECTOR IT Office Visit [facility] - Endocrinology [address] [place] [phone] [place] [address] [place] [address] documented as of this encounter Visit Diagnoses Not on filedocumented in this encounter Care Teams Group Leader Semiconductor Testing Relationship Specialty Start Date End Date Sarath Edgar MD [address] [place] [address] PCP - General 03/18/12 Jorge Olivia DO [address] [place] [phone] Orthopedic Surgery 12/03/12 06/20/16 Luana Mendez MD [address] [place] [address] Endocrinology 04/05/15 [place] [address] [facility] [address] [place] [address] Ophthalmology 06/21/16 Randa Davis DPM [address] [facility] [address] SOLIS [address] [place] [address] Podiatry 06/21/16 documented as of this encounter
--- OUTSIDE RECORDS SUMMARY | 2025-05-09 10:35 | XMS_ITS | Encounter Summary ---
Author Organization [facility] Health Address [address] [place] [address] Care Team Providers Care Medical Videographer Name Role Phone Sarath Edgar MD Primary Care Provider [phone] Jorge Olivia DO Unavailable Luana Mendez MD Unavailable [phone] Eun Duarte MD Unavailable [phone] Randa Davis DPM Unavailable [phone] Encounter Details Date Type Department Care Team (Late st Contact Info) Description 10/08/2015 [facility] Outpatient Visit [facility] SC[facility] [address] [place] [address] [place] [address] [address] Social History Tobacco Use Types Packs/Day Years Used Date Smoking Tobacco: Former Cigarettes Q uit: 02/24/2012 Alcohol Use Standard Drinks/Week Comments No 0 (1 standard drink = 0.6 oz pur e alcohol) Sex and Gender Information Value Date Recorded Sex Assigned at Male 12/05/2020 2:14 PM CDT Legal Sex Male 1:53 PM DAIRY PRODUCTS MAKER Gender Identity Male 12/05/2020 2:14 PM CDT Sexual Orientation Straight 12/05/2020 2: 14 PM CDT documented as of this encounter Plan of Treatment Upcoming Encounters Date Type Department Care Team (Late st Contact Info) Description 06/18/2025 2:40 PM CDT Office Visit [facility] - Endocrinology [address] [place] [phone] Gayla Warner, GRANITE POLISHER-SPLITTING MACHINE TENDER [address] [phone] 09/23/2025 3:20 PM DAIRY PRODUCTS MAKER Office Visit [facility] - Endocrinology [address] [place] [phone] Lu[place]endez [place] [address] [place] [address] documented as of this encounter Visit Diagnoses Not on filedocumented in this encounter Care Teams Medical Videographer Relationship Specialty Start Date End Date Sarath Edgar MD [address] [place] [address] PCP - General 03/18/12 Jorge Olivia DO [address] [place] [address] Orthopedic Surgery 12/03/12 06/20/16 Luana Mendez MD [address] [place] [address] Endocrinology 04/05/15 Eun Duarte [place] [address] [place] [phone] Ophthalmology 06/21/16 Randa Davis DPM [address] [place] [address] DR SOLIS [address] [place] [address] Podiatry 06/21/16 documented as of this encounter
[2025-05-09 10:39] VITALS: BP 154/81; PULSE 110; RESP 16; TEMP 36.6; O2SAT 98
--- OUTSIDE RECORDS SUMMARY | 2025-05-09 12:16 | XMS_ITS | Encounter Summary ---
Author Organization [facility] Address [address] [facility] [place] [address] Care Team Providers Care Hair Clipper Power Name Role Phone Sarath Edgar MD Primary Care Provider [phone] Jorge Olivia DO Unavailable [phone] Luana Mendez MD Unavailable Eun Duarte MD Unavailable [phone] Randa Davis DPSlime Unavailable Encounter Details Date Type Department Care Team (Late st Contact Info) Description 03/17/2012 [facility] Outpatient Visit EXTERNAL NON-[facility] DEPT [place] Mendez [place] [address] [place] [address] [place] [address] Social History Tobacco Use Types Packs/Day Years Used Date Smoking Tobacco: Never Assessed Sex and Gender Information Value Date Recorded Sex Assigned at Male 12/05/2020 2:14 PM CDT Legal Sex Male 1:53 PM STOCKROOM ATTENDANT Gender Identity Male 12/05/2020 2:14 PM CDT Sexual Orientation Straight 12/05/2020 2: 14 PM CDT documented as of this encounter Plan of Treatment Upcoming Encounters Date Type Department Care Team (Late st Contact Info) Description 06/18/2025 2:40 PM CDT Office Visit [facility] - Endocrinology [address] [place] [address], [address] [place] [phone] Gayla Warner, ARCHIVIST MILITARY HISTORY-SPINNING FRAME CHANGER [address] [phone] 09/23/2025 3:20 PM STOCKROOM ATTENDANT Office Visit [facility] - Endocrinology [address] [phone] [place] [address] [address] documented as of this encounter Visit Diagnoses Not on filedocumented in this encounter Care Teams Hair Clipper Power Relationship Specialty Start Date End Date Sarath Edgar MD [address] [place] [address] PCP - General 03/18/12 Jorge Olivia DO [address] [place] [address] Orthopedic Surgery 12/03/12 06/20/16 Luana Mendez [place] [address] [place] [address] Endocrinology 04/05/15 [place] [address] [facility] [address] [place] [phone] Ophthalmology 06/21/16 Randa Davis DPM [address] [facility] [address] [place] [address] Podiatry 06/21/16 documented as of this encounter
--- OUTSIDE RECORDS SUMMARY | 2025-05-09 12:16 | XMS_ITS | Encounter Summary ---
Author Organization [facility] Address [address] [facility] [place] [address] Care Team Providers Care Magazine Supervisor Name Role Phone Sarath Edgar MD Primary Care Provider [phone] Jorge Olivia DO Unavailable [phone] Luana Mendez MD Unavailable [phone] Eun Duarte MD Unavailable [phone] Randa Davis DPSlime Unavailable [phone] Encounter Details Date Type Department Care Team (Late st Contact Info) Description 07/18/2013 [facility] Outpatient Visit [facility] - Endocrinology [address] [address] [place] [address] [address] Social History Tobacco Use Types Packs/Day Years Used Date Smoking Tobacco: Former Cigarettes Q uit: 02/24/2012 Alcohol Use Standard Drinks/Week Comments No 0 (1 standard drink = 0.6 oz pur e alcohol) Sex and Gender Information Value Date Recorded Sex Assigned at Male 12/05/2020 2:14 PM CDT Legal Sex Male 1:53 PM GLASS MELT OPERATOR Gender Identity Male 12/05/2020 2:14 PM CDT Sexual Orientation Straight 12/05/2020 2: 14 PM CDT documented as of this encounter Plan of Treatment Upcoming Encounters Date Type Department Care Team (Late st Contact Info) Description 06/18/2025 2:40 PM CDT Office Visit [facility] - Endocrinology [address] [place] [phone] Gayla Warner, BENCH ASSEMBLER OPERATOR-[facility] [address] [phone] 09/23/2025 3:20 PM GLASS MELT OPERATOR Office Visit [facility] - Endocrinology [address] [place] [phone] Lu[place]endez [place] [address] [place] [address] documented as of this encounter Visit Diagnoses Not on filedocumented in this encounter Care Teams Magazine Supervisor Relationship Specialty Start Date End Date Sarath Edgar MD [address] [place] [address] PCP - General 03/18/12 Jorge Olivia DO [address] [place] [phone] Orthopedic Surgery 12/03/12 06/20/16 Luana Mendez MD [address] [place] [address] Endocrinology 04/05/15 [place] [address] [facility] [address] [place] [address] Ophthalmology 06/21/16 Randa Davis DPM [address] [facility] [address] SOLIS [address] [place] [address] Podiatry 06/21/16 documented as of this encounter
--- OUTSIDE RECORDS SUMMARY | 2025-05-09 12:16 | XMS_ITS | Encounter Summary ---
Author Organization [facility] Address [address] [place] [address] Care Team Providers Care Transit Driver Name Role Phone Sarath Edgar MD Primary Care Provider [phone] Jorge Olivia DO Unavailable [phone] Luana Mendez MD Unavailable [phone] Eun Duarte MD Unavailable [phone] Randa Davis DPM Unavailable [phone] Encounter Details Date Type Department Care Team (Late st Contact Info) Description 10/08/2015 [facility] Outpatient Visit [facility] SC[facility]ING [address] [place] [address] [place] [address] [address] Social History Tobacco Use Types Packs/Day Years Used Date Smoking Tobacco: Former Cigarettes Q uit: 02/24/2012 Alcohol Use Standard Drinks/Week Comments No 0 (1 standard drink = 0.6 oz pur e alcohol) Sex and Gender Information Value Date Recorded Sex Assigned at Male 12/05/2020 2:14 PM CDT Legal Sex Male 1:53 PM ENVIRONMENTAL COMMUNICATIONS SPECIALIST Gender Identity Male 12/05/2020 2:14 PM CDT Sexual Orientation Straight 12/05/2020 2: 14 PM CDT documented as of this encounter Plan of Treatment Upcoming Encounters Date Type Department Care Team (Late st Contact Info) Description 06/18/2025 2:40 PM CDT Office Visit [facility] - Endocrinology [address] [place] [phone] Gayla Warner, SHIFT MANAGER-DIGITAL CONTENT MARKETING MANAGER [address] [phone] 09/23/2025 3:20 PM ENVIRONMENTAL COMMUNICATIONS SPECIALIST Office Visit [facility] - Endocrinology [address] [place] [phone] Luana Mendez [place] [address] [place] [address] documented as of this encounter Visit Diagnoses Not on filedocumented in this encounter Care Teams Transit Driver Relationship Specialty Start Date End Date Sarath Edgar MD [address] [place] [address] PCP - General 03/18/12 Jorge Olivia DO [address] [place] [address] Orthopedic Surgery 12/03/12 06/20/16 Luana Mendez MD [address] [place] [address] Endocrinology 04/05/15 Eun Duarte [place] [address] [place] [phone] Ophthalmology 06/21/16 Randa Davis DPM [address] [place] [address] DR SOLIS [address] [place] [address] Podiatry 06/21/16 documented as of this encounter
--- OUTSIDE RECORDS SUMMARY | 2025-05-09 12:16 | XMS_ITS | Clinical Summary ---
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 Insurance [facility] CHOICE [facility] [employer] [address] [facility] ACCESS CHOICE Care Teams Vest Presser Relationship Specialty Start Date End Date Sarath Edgar MD PCP - General 11/07/07
--- OUTSIDE RECORDS SUMMARY | 2025-05-09 12:16 | XMS_ITS | Encounter Summary ---
Author Organization [facility] Address [address] [facility] [place] [address] Care Team Providers Care Vocal Music Instructor Name Role Phone Sarath Edgar MD Primary Care Provider [phone] Jorge Olivia DO Unavailable Luana Mendez MD Unavailable [phone] Eun Duarte MD Unavailable [phone] Randa Davis DPSlime Unavailable [phone] Encounter Details Date Type Department Care Team (Late st Contact Info) Description 07/22/2013 [facility] Outpatient Visit [facility] - Endocrinology [address] [address] [place] [address] [address] Social History Tobacco Use Types Packs/Day Years Used Date Smoking Tobacco: Former Cigarettes Q uit: 02/24/2012 Alcohol Use Standard Drinks/Week Comments No 0 (1 standard drink = 0.6 oz pur e alcohol) Sex and Gender Information Value Date Recorded Sex Assigned at Male 12/05/2020 2:14 PM CDT Legal Sex Male 1:53 PM WET END SUPERVISOR Gender Identity Male 12/05/2020 2:14 PM CDT Sexual Orientation Straight 12/05/2020 2: 14 PM CDT documented as of this encounter Plan of Treatment Upcoming Encounters Date Type Department Care Team (Late st Contact Info) Description 06/18/2025 2:40 PM CDT Office Visit [facility] - Endocrinology [address] [place] [phone] Gayla Warner, EHS SPECIALIST-[facility] [address] [phone] 09/23/2025 3:20 PM WET END SUPERVISOR Office Visit [facility] - Endocrinology [address] [place] [phone] Lu[place] Mendez [place] [address] [place] [address] documented as of this encounter Visit Diagnoses Not on filedocumented in this encounter Care Teams Vocal Music Instructor Relationship Specialty Start Date End Date Sarath Edgar MD [address] [place] [address] PCP - General 03/18/12 Jorge Olivia DO [address] [place] [phone] Orthopedic Surgery 12/03/12 06/20/16 Luana Mendez MD [address] [place] [address] Endocrinology 04/05/15 [place] [address] [facility] [address] [place] [address] Ophthalmology 06/21/16 Randa Davis DPM [address] [facility] [address] SOLIS [address] [place] [address] Podiatry 06/21/16 documented as of this encounter
--- OUTSIDE RECORDS SUMMARY | 2025-05-09 12:16 | XMS_ITS | Clinical Summary ---
Author Organization [facility] Address [address] [place] [address] Care Team Providers Care Acute Care Surgeon Name Role Phone Sarath Edgar MD Primary Care Provider [phone] Luana Mendez MD Unavailable [phone] Eun Duarte MD Unavailable [phone] Randa Davis DPM Unavailable [phone] Source Comments [facility],non-owned Affiliates and Associated Physician Practices is amultiple site organization consisting of ambulatory clinics and hospital sitesin [place], [place], [place] and [place]. This disclosure is being madepursuant to the Care Everywhere program and may not contain all information available regarding this patient. Last updated 18.[facility] Allergies Active Allergy Reactions Criticality Noted Date Comments Atorvastatin Myalgias 10/06/2019 Banana Itching 06/16/2014 Mouth tingling Rosuvastatin Myalgias 12/08/2020 Losartan Dizziness 08/13/2023 Lethargic, decrease BP Medications * Be aware that medications may not be up to date on this document. Alwaysverify current medications with the patient. insulin syringe-needle (BD INSULIN SYRINGE ULTRAFINE) 31G X 5/16 0.5 ML syringe 1 Each by Injection route 3 times daily before meals 300 Each 0 08/11/20 15 Active insulin syringe-needle (B-D INS SYR HALF-UNIT .3CC/31G) 31G X 5/16 0.3 ML syringe Use as directed to inject 3 times daily 300 Each 3 11/10/19 16 Active aspirin (ASPIRIN) 81 MG tablet Take 1 Tab by mouth once daily 09/21/19 17 Active fluticasone propionate (FLONASE) 50 MCG/ACT nasal spray [place] 2 Sprays into each nostril once daily 1 Bottle 3 05/09/20 17 Active Additional Information Patient taking differently:2 spray Each NostrilPRN, Reported on 07/17/2022 B Complex-Folic Acid (SUPER B COMPLEX MAXI) TABS Take 1 tablet by mouth once daily 12/17/19 19 Active ZYRTEC-D ALLERGY & CONGESTION 5-120 MG tablet as needed 02/26/20 19 Active Cholecalciferol (VITAMIN D) 50 MCG (1999 UT) capsule Take 1 capsule by mouth once daily 10/07/19 20 Active Blood Pressure Monitoring (B-D ASSURE BPM/AUTO ARM CUFF) MISCIndications: Pure hypercholesterol emia,Uncontrolle d type 1 diabetes mellitus with hypoglycemia and coma (HCC),Primary hypertension Use 1 Each once daily Digital Large adult cuff for home use 1 Each 10/10/19 23 Active blood glucose (Accu-Chek Guide) test stripIndications :Uncontrolled type 1 diabetes mellitus with hypoglycemia and coma (HCC) Use 1 (one) strip 8 times daily while awake While on insulin pump: with hypoglycemia 800 strip 3 11/03/19 23 Active Accu-Chek Multiclix Lancets MISCIndications: Uncontrolled type 1 diabetes mellitus with hypoglycemia and coma (HCC) Use 1 Each 8 times daily while awake 800 Each 3 11/03/19 23 Active Insulin Lispro-aabc (Lyumjev) 100 UNIT/ML SOLN 120 Units by Injection route once daily as needed Replacing Humalog: [id number] unit delivered via insulin pump 120 mL 3 11/04/19 23 Active Accu-Chek Multiclix Lancets MISCIndications: Uncontrolled type 1 diabetes mellitus with hypoglycemia and coma (HCC) Use 1 Each 8 times daily while awake 816 Each 3 11/04/19 23 Active Accu-Chek Guide test stripIndications :Uncontrolled type 1 diabetes mellitus with hypoglycemia and coma (HCC) USE 1 (ONE) STRIP 8 TIMES DAILY WHILE AWAKE WHILE ON INSULIN PUMP: WITH HYPOGLYCEMIA 800 strip 3 11/04/19 23 Active blood glucose (Accu-Chek Guide) test stripIndications :Uncontrolled type 1 diabetes mellitus with hypoglycemia and coma (HCC) Use 1 (one) strip 8 times daily while awake While on insulin pump: with hypoglycemia 800 strip 1 09/29/19 25 Active Insulin Lispro-aabc (Lyumjev) 100 UNIT/ML SOLN 120 Units by Injection route once daily as needed Replacing Humalog: [id number] unit delivered via insulin pump 240 mL 1 09/29/19 25 Active insulin glargine (Lantus/Semglee) 100 units/mL pen Inject 30 (thirty) Units subcutaneously at bedtime 15 mL 11 11/24/19 25 Active Lantus SoloStar pen Inject 60 (sixty) Units subcutaneously at bedtime 30 mL 3 11/25/19 25 Active tirzepatide (Zepbound) 2.5 MG/0.5ML injectionIndicat ions:Dyslipidemi a,HTN, goal below 130/80,JUAN (obstructive sleep apnea) Inject 2.5 (two and one-half) mg subcutaneously every 7 days (once a week) 2 mL 1 03/18/20 25 Active tirzepatide (Zepbound) 5 MG/0.5ML injectionIndicat ions:Dyslipidemi a,HTN, goal below 130/80,JUAN (obstructive sleep apnea) Inject 5 (five) mg subcutaneously every 7 days (once a week) Replacing the 2.5 starting dosing if tolerating 2 mL 4 03/18/20 25 Active Active Problems Problem Noted Date Diagnosed Date Elevated LFTs 07/26/2022 Dyslipidemia 12/16/2018 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 07/31/2016 Diabetic hypoglycemia 12/03/2012 Status post insertion of insulin pump 04/11/2012 Uncontrolled type 1 diabetes mellitus 03/18/2012 Overview (06/03/2015): Resolved Problems Problem Noted Date Diagnosed Date Resolved Date Hyperlipidemia 09/23/2012 12/16/2018 Encounters Date Type Department Care Team Description 04/16/2025 Orders Only [facility] - Endocrinology [address] [place] [address], [address] [place] [address] Luana Mendez MD 03/23/2025 Telephone [facility] - Endocrinology [address] [place] [address], [address] [place] [address] Luana eMndez MD Medication Prior Auth Request 03/18/2025 3:20 PM CDT Office Visit [facility] Endocrinology [address] [place] [address], [address] [place] [phone] Luana Mendez MD Uncontrolled type 1 diabetes mellitus with hypoglycemia and coma (HCC) (Primary Dx); Dyslipidemia; HTN, goal below 130/80; JUAN (obstructive sleep apnea); Hypoglycemia due to type 1 diabetes mellitus (HCC); Insulin pump in place; Elevated LFTs 03/17/2025 Orders Only [facility] Endocrinology [address] [place] [address], [address] [place] [phone] Luana Mendez MD Uncontrolled type 1 diabetes mellitus with hypoglycemia and coma (HCC) ; Dyslipidemia; Primary hypertension; Hypoglycemia unawareness associated with type 1 diabetes mellitus (HCC); Fatigue, unspecified type from Last 3 Months Family History Medical History Relation Name Comments Thyroid Disease Brother Diabetes Father borderline CAD (Coronary Artery Disease) Neg Hx CVA Neg Hx Relation Name Status Comments Brother Father Social History Tobacco Use Types Packs/Day Years Used Date Smoking Tobacco: Former Cigarettes 0 02/23/1987 - 02/24/2012 Smokeless Tobacco: Never Tobacco Cessation:Counseling Given: Not Answered Alcohol Use Standard Drinks/Week Comments No 0 (1 standard drink = 0.6 oz pur e alcohol) Sex and Gender Information Value Date Recorded Sex Assigned at Male 12/05/2020 2:14 PM CDT Legal Sex Male 1:53 PM [employer] Gender Identity Male 12/05/2020 2:14 PM CDT Sexual Orientation Straight 12/05/2020 2: 14 PM CDT Last Filed Vital Signs Vital Sign Reading Time Taken Comments Blood Pressure 148/74 03/18/2025 3:16 PM CDT Pulse 94 03/18/2025 3:16 PM CDT Temperature 36.7 C (98 F) 04/04/2022 9:07 AM CDT Respiratory Rate 20 07/05/2021 8:07 AM CDT Oxygen Saturation 96% 03/18/2025 3:16 PM CDT Inhaled Oxygen Concentration - - Weight 137 kg (302 lb) 03/18/2025 3:16 PM CDT Height 177.8 cm (5' 10) 03/18/2025 3:16 PM CDT Body Mass Index 43.33 03/18/2025 3:16 PM CDT Plan of Treatment Upcoming Encounters Date Type Department Care Team (Late st Contact Info) Description 06/18/2025 2:40 PM CDT Office Visit [facility] - Endocrinology [id number] [place] [address], [address] [phone] Gayla Warner, INDUSTRIAL ANALYST-FEDERAL DISTRICT CLERK [id number] [place] [address] [place] [phone] 09/23/2025 3:20 PM [employer] Office Visit [facility] - Endocrinology [address] [place] [address], [address] [phone] [place] Mendez [place] [id number] [place] [id number] Health Maintenance Due Date Last Done Comments COLOGUARD (AGES 45-75) - COLON CA SCREENING 1965 [...] exists DIABETES-FOOT EXAM WITH MONOFILAMENT 01/18/2021 01/19/2020 DEPRESSION SCREENING 09/03/2024 DIABETES - URINE PROTEIN SCREENING 09/03/2024 08/16/2024, 08/18/2023, 07/17/2022, Additional history exists COVID-19 VACCINE ( season) 2025 INFLUENZA VACCINE (#1) 2025 DIABETES-SERUM CREATININE 08/16/20252023, 11/03/2023, 08/18/2023, Additional history exists DIABETES-HGB A1C 09/18/2025 03/18/2025, 06/2024, 02/12/2024, Additional history exists HIB VACCINE Aged Out No longer eligi ble based on patient's age to complete this topic HPV VACCINE Aged Out No longer eligi ble based on patient's age to complete this topic MENINGOCOCCAL (Group B) VACCINE SHARED DECISION-MAKING Aged Out No longer eligible based on patient's age to complete this topic MENINGOCOCCAL GROUPS A/C/Y/W VACCINE Aged Out No longer eligible based on patient's age to complete this topic Procedures Procedure Name Priority Date/Time Associated Diagnosis Comments HEMOGLOBIN A1C - POINT OF CARE (AMB) Routine 03/18/2025 Uncontrolled type 1 diabetes mellitus with hypoglycemia and coma (HCC) GLUCOSE - POINT OF CARE (AMB) STL Routine 03/18/2025 Uncontrolled type 1 diabetes mellitus with hypoglycemia and coma (HCC) MICROALB/CREAT RATIO URINE RANDOM PANEL Routine 08/16/2024 11:56 AM [employer] Uncontrolled type 1 diabetes mellitus with hypoglycemia and coma COMPREHENSIVE METABOLIC PANEL Routine 08/16/2024 11:56 AM [employer] Uncontrolled type 1 diabetes mellitus with hypoglycemia and coma Diabetic hypoglycemia Hypoglycemia unawareness associated with type 1 diabetes mellitus Primary hypertension Pure hypercholesterolemia HM DIABETES EYE EXAM Routine 09/13/2018 from Last 3 Months or Most Recently Relevant to Health Maintenance Results * (ABNORMAL) GLUCOSE - POINT OF CARE (AMB) STL (03/18/2025) Glucose 252(A) 60 - 100 mg/dL Lot # [id number] Expiration Date 02/16/2026 QC Verified Yes Yes Blood BLOOD SPECIMEN / Unknown 03/18/2025 Luana Mendez MD LAB - POINT OF CARE [facility] Final Result * HEMOGLOBIN A1C - POINT OF CARE (HgbA1C) (03/18/2025) Hemoglobin A1c POCT 6.9 % Expiration Date 10/29/2026 Lot # [id number] QC Verified Yes Yes Blood BLOOD SPECIMEN / Unknown 03/18/2025 Luana Mendez MD LAB - POINT OF CARE [facility] Final Result * MICROALB/CREAT RATIO URINE RANDOM PANEL (08/16/2024 11:56 AM [employer]) Creatinine Urine 181.3 Not Estab. mg/dL [facility] ACCOUNT BILL Microalbumin Urine 9.8 Not Estab. ug/mL [facility] ACCOUNT BILL Microalbumin/Crea tinine Ratio 5 0 - 29 mg/g creat [facility] ACCOUNT BILL Comment: Normal: 0 - 29 Moderately increased: 30 - 300 Severely increased: >300 Urine URINE SPECIMEN OBTAINED BY CLEAN CATCH PROCEDURE / Unknown 08/16/2024 11:56 AM [employer] 08/16/2024 Narrative [facility] ACCOUNT BILL - 08/17/2024 7:05 AM [employer] Performed at: 01 - [facility] [id number] Manager In Training: Jae Mckeon PhD, Phone: [phone] Luana Mendez MD LAB - URINE CHEMISTRY OR DERABLES Final Result [facility] ACCOUNT BILL [address] [place] [address] * COMPREHENSIVE METABOLIC PANEL (08/16/2024 11:56 AM [employer]) Glucose 94 70 - 99 mg/dL [facility] [...] BLOOD SPECIMEN / Unknown 08/16/2024 11:56 AM [employer] 08/16/2024 Narrative [facility] ACCOUNT BILL - 08/17/2024 7:05 AM [employer] Performed at: 01 - [facility] [id number] [place], [place] [id number] Manager In Training: Jae Mckeon PhD, Phone: [phone] Luana Mendez MD LAB - CHEMISTRY ORDERABL ES Final Result [facility] ACCOUNT BILL [address] [place] [address] * DIABETES EYE EXAM (09/13/2018) Historical Provider HEALTH MAINTENANCE Final Result from Last 3 Months or Most Recently Relevant to Health Maintenance Insurance LAINEY ANTHEM Care Teams Acute Care Surgeon Relationship Specialty Start Date End Date Sarath Edgar MD [address] [place] [address] PCP - General 03/18/12 [place] [address] [facility] [address] [place] [address] Endocrinology 04/05/15 [place] [address] [facility] [address] [place] [phone] Ophthalmology 06/21/16 Randa Davis DPM [id number] [facility] [address] [address] [place] [address] [place] [id number] Podiatry 06/21/16
--- NOTE | 2025-05-09 12:59 | ED.UPPEXIN ---
HPI - Extremity Injury (Upper) General Chief Complaint: Extremity Injury, Upper Stated Complaint: left finger injury Time Seen by Provider: 05/09/25 11:55 Source: patient Mode of arrival: ambulatory Limitations: no limitations History of Present Illness HPI narrative: [id number] 60-year-old male presents with injury to digits 2 and 3 on his left hand. 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 He had his hands on his knees while crouched at the time , with knee/jennings guards on. Sustained direct blow to his slightly flexed fingers, digits 2 and 3, at the PIPs and slightly distally on digit #3. Has not yet taken anything for pain. He has a history of diabetes mellitus for which he is on an insulin pump but otherwise denies being on anticoagulation. He initially experienced some numbness in this area in any had some pain along the dorsum of his left hand but this improved he denies any direct contact in the hands/palmar/dorsal aspect of the hand. Has not noticed any catching/popping with movement. Slight limitation in ROM. Related Data Home Medications ?Medication ?Instructions ?Recorded ?Confirmed ?Last Taken ?Type insulin lispro-aabc 100 unit/mL 1 sliding scale dose subcut 10/18/21 04/11/25 Unknown History subcutaneous solution (Lyumjev USEASDIRECTD U-100 Insulin) Allergies Allergy/AdvReac Type Severity Reaction Status Date / Time No Known Allergies Allergy Unknown Verified 04/08/25 15:05 [facility] Past Medical History Medical History Insulin dependent diabetes mellitus Spider bite Dyspnea Tachycardia Leg edema Right wrist pain Left lateral epicondylitis Screen for colon cancer Screening for prostate cancer Chest wall pain Erectile dysfunction Scratch Low vitamin D level BMI greater than 40 Abnormal MRI, lumbar spine Foot pain, bilateral Vertigo Umbilical hernia BMI 40.0-44.9, adult Obesity Family History Family History Grandparent Malignant neoplasm of prostate Father COVID-19 Diabetes mellitus Mother COVID-19 Sibling COVID-19 Diabetes mellitus Social History Social History Smoking status: Former smoker Tobacco type: cigarettes Second hand tobacco smoke exposure: No Smoking end date: 03/02/12 Alcohol intake: current Substance use: never Substance use type: does not use Do You Feel Safe in your Home?: Yes Lack of Transportation: No Lack of Food: Never True Current Housing: I Have Housing Concerned About Future Housing: No Difficulty Paying Gas/Electric Bills: No Difficulty Paying for Meds: No Currently Unemployed: No Education: High School Diploma/GED Difficulty w/ Childcare or Family Care: No Living arrangements: alone Occupation/Education: occupation 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 HEAD: Normocephalic, atraumatic. EYES: Non injected, non icteric ENT: Nares clear, no rhinorrhea or epistaxis. Gross auditory acuity intact. NECK: Supple. No meningismus. CHEST: Speaking in full sentences. No respiratory distress. HEART: Mildly tachycardic rate and rhythm. Strong 2+ radial pulse on L. Brisk capillary refill in affected digits. ABDOMEN: Soft, nondistended. No rigidity or guarding. Not peritoneal EXTREMITIES: Mild edema in digits 2 and 3, not fusiform swelling. Full flexion of digits limited secondary to pain but patient able to perform reassuring degree of flexion in all digits as well as extension. No snuffbox tenderness. No TTP at dorsal aspect hand which is without palpable masses. SKIN: Warm, dry. faint ecchymosis dorsal aspects digits and 2 and 3. NEURO: No focal deficits. Alert and oriented. Answering questions. Following commands. Normal speech without aphasia or dysarthria. Sensation intact throughout hand and digits. PSYCH: Normal mood and affect. Course Vital Signs Vital signs: Vital Signs Temperature 97.9 F 05/09/25 10:39 Pulse Rate 110 H 05/09/25 10:39 Respiratory Rate 16 05/09/25 10:39 Blood Pressure 154/81 H 05/09/25 10:39 Pulse Oximetry 98 05/09/25 10:39 Oxygen Delivery Room Air 05/09/25 10:39 Temperature 97.9 F 05/09/25 14:18 Pulse Rate 84 05/09/25 14:18 Respiratory Rate 16 05/09/25 14:18 Blood Pressure 146/80 H 05/09/25 14:18 Pulse Oximetry 100 05/09/25 14:18 Oxygen Delivery Room Air 05/09/25 10:39 MDM - Extremity Injury (Upper) MDM Narrative Medical decision making narrative: Right hand dominant male presents after left hand injury in which a ball struck his left hand, particularly digits 2 and 3. Blunt force trauma. Skin intact. In the emergency department he is afebrile with vital signs notable for mild hypertension as well as mild tachycardia, presumably exacerbated by pain. Ice applied upon arrival. Reassuring physical exam, neurovascularly intact. No indication hayley system derangements in hand. No catching/locking/popping on exam. Suspect sprain/strain/bony contusion. Imaging negative for acute bony process. Discussed combination of OTC meds for pain control and balancing rest/protection of the affected areas but contuing to perform ROM. Counseled on ice 15-20 minutes 4x/day first 48 hours. Patient verifies understanding. Advised follow up with PCP if not improving. Differential Diagnosis Differential diagnosis: Likely finger sprain, dislocation of finger and fracture of hand Imaging Data Radiologist's impression: IMPRESSION: 1. No osseous abnormality at the left second and third digits are visualized portions of the left hand IMPRESSION: 1. No osseous abnormality at the left second and third digits are visualized portions of the left hand Discharge Plan Discharge Clinical Impression: Struck by baseball, initial encounter, Pain in left finger(s) Patient Disposition: Home Condition: Stable Instructions: Antibiotic Form, Finger Sprain (ED), P.R.I.C.E. Treatment (ED), Swollen Joint (ED) Additional Instructions: As we discussed, no fracture/broken bones or dislocation. Acetaminophen/Tylenol (maximum 4000 mg per day) is safe to take with NSAIDs (ibuprofen/Motrin) for pain relief. Follow up with your PCP if not improving in the next 3-5 days. Return to the emergency department any new or worsening symptoms. Continue taking your other medications as prescribed. You can apply ice (not directly to the skin) for 15-20 minutes at a time 4 times a day over the 1st 24-48 hours. Rest the extremities but balance performing range of motion exercises. Patient Language: Burmese Prescriptions: New acetaminophen 500 mg capsule 1,000 mg PO Q6H PRN (Reason: pain) Qty: 20 0RF ibuprofen 600 mg tablet 600 mg PO TID PRN (Reason: pain) Qty: 20 0RF No Action cetirizine-pseudoephedrine [Zyrtec-D] 5-120 mg tablet extended release 12 hr 1 tablet PO BID Qty: 60 2RF Lyumjev U-100 Insulin 100 unit/mL solution 1 sliding scale dose subcut USEASDIRECTD Follow-up/Referrals: Sarath Edgar MD [Primary Care Provider, Family Practice] Stand Alone Forms: Work/School Release IP Time of Disposition: 14:03
[2025-05-09] MEDS: ACETAMINOPHEN 500 MG TABLET 1000 MG PO (13:36)
[2025-05-09] MEDS: KETOROLAC 30 MG/ML VIAL (*BKC) IM (13:37)
[2025-05-09 14:18] VITALS: BP 146/80; PULSE 84; RESP 16; TEMP 36.6; O2SAT 100
== END 2025-05-09 14:20 | disposition home or self-care (01) ==
PROVIDERS: Emergency Provider Student in an Organized Health Care Education/Training Program; PCP Family Medicine
DX: S69.92XA Unspecified injury of left wrist, hand and finger(s), initial encounter (principal); E11.9 Type 2 diabetes mellitus without complications; E66.9 Obesity, unspecified; Z68.41 Body mass index [BMI] 40.0-44.9, adult; Z87.891 Personal history of nicotine dependence; Z79.4 Long term (current) use of insulin; W21.03XA Struck by baseball, initial encounter; Y93.81 Activity, refereeing a sports activity
CPT/HCPCS: 73140; 96372; 99283; A9270; J1885